=== PATIENT | female | born 1975 | race Caucasian/White ===

== ENCOUNTER → 2016-08-21 | Outpatient (CLI) | payer OTHER ==
[~2016-08-21] MED LIST: CLIN-81 PO; DOCU100T7 PO; FURO20TA4 PO; HYDR-34 PO; HYDR-757 PO; IBUP-1773 PO; Ibuprofen PO; L.AC1CAP6 PO; MULT-608 PO; NF-VYVAN20 PO; POTA10CA43 PO; PREN-37 PO; SPRN25T PO
--- NOTE | 2016-08-22 19:13 | Diagnostic Imaging Report ---
EXAMINATION: Digital mammogram bilateral screening. INDICATION: Screening. COMPARISON: This study was compared to the prior exams of 04/09/2015 and 02/09/2014. At this time, there are no current complaints. The current study was also evaluated with a Computer Aided Detection (CAD) system. FINDINGS: As noted on the prior exam, there are bilateral breast implants in place. The implants appear similar to the prior study. There is no sign of an extracapsular rupture of either implant. The fibroglandular tissue overlying the implants is heterogeneously dense. This does limit the sensitivity of this exam. When compared to the previous study, there does not appear to have been any significant change. There is no primary or secondary sign of malignancy noted. IMPRESSION: 1. There is no evidence of malignancy. 2. The implants appear stable. There is no sign of an extracapsular rupture of either implant. 3. The patient should have her annual bilateral screening mammogram on schedule in August of 2017. ACR BI-RADS Category 1: Negative. Result letter will be mailed to the patient. Note: At least 10% of breast cancer is not imaged by mammography. Dictated by: Dictated on workstation # [id number]
== END ==
LOC: RAD 15:03
PROVIDERS: ATTEND Obstetrics & Gynecology
DX: Z12.31 Encounter for screening mammogram for malignant neoplasm of breast (principal)
CPT/HCPCS: 77067

== ENCOUNTER → 2017-08-23 | Outpatient (CLI) | payer BC, OTHER ==
--- NOTE | 2017-08-24 14:21 | Diagnostic Imaging Report ---
Digital mammogram bilateral screening. This study was compared to the prior exams of 08/21/2016, 04/09/2015, and 02/09/2014. At this time, there are no current complaints. The current study was also evaluated with a Computer Aided Detection (CAD) system. FINDINGS: There are bilateral breast implants in place. The implants appear stable when compared to the prior exam. There is no sign of extracapsular rupture of either implant. The fibroglandular tissue overlying the implants is heterogeneously dense. This does limit the sensitivity of this exam. Overall, there does not appear to have been any significant change. There is no primary or secondary sign of malignancy noted. IMPRESSION: 1. There is no evidence for malignancy. 2. The implants appear stable. ACR BI-RADS Category 1: Negative. Result letter will be mailed to the patient. Note: At least 10% of breast cancer is not imaged by mammography. Dictated on workstation # [id number]
== END ==
LOC: RAD 15:34
PROVIDERS: ATTEND Obstetrics & Gynecology
DX: Z12.31 Encounter for screening mammogram for malignant neoplasm of breast (principal)
CPT/HCPCS: 77067

== ENCOUNTER → 2018-12-10 | Outpatient (CLI) | payer BC, OTHER ==
[~2018-12-10] MED LIST changes: +HYDR-4226 PO
--- NOTE | 2018-12-11 18:28 | Diagnostic Imaging Report ---
INDICATION: Screening. At this time there are no current complaints. EXAMINATION: Bilateral digital screening mammogram with CAD. 3D tomographic images were obtained and reviewed. The current study was also evaluated with a Computer Aided Detection (CAD) system. COMPARISON: This study was compared to the exams of 08/21/2016 and 04/09/2015. FINDINGS: There are bilateral breast implants in place. The implants appear similar to the prior exam. There is no evidence for an extracapsular rupture of either implant. The fibroglandular tissue overlying the implants is heterogeneously dense. This does limit the sensitivity of this exam. Overall, there does not appear to have been any significant change. There is no primary or secondary sign of malignancy noted. IMPRESSION: 1. There is no evidence for malignancy. 2. The implants appear intact. ACR BI-RADS Category 1: Negative. Result letter will be mailed to the patient. Note: At least 10% of breast cancer is not imaged by mammography. Dictated by: Dictated on workstation # [id number]
== END ==
LOC: RAD 14:17
PROVIDERS: ATTEND Obstetrics & Gynecology
DX: Z12.31 Encounter for screening mammogram for malignant neoplasm of breast (principal); Z98.82 Breast implant status
CPT/HCPCS: 77067

== ENCOUNTER 2019-04-26 21:50 | Emergency (ER) | payer BC ==
[~2019-04-26] VITALS: Ht 157.4 cm; Wt 75.0 kg
[2019-04-26] MEDS ORDERED: LACTATED RINGERS 1,000 ML IV ONE (22:05)
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
[2019-04-26 22:49] LABS: BILIRUBIN,URINE NEGATIVE (NEGATIVE); CLARITY,URINE CLEAR; COLOR,URINE YELLOW; GLUCOSE, URINE (UA) NEGATIVE (NEGATIVE); KETONES,URINE NEGATIVE (NEGATIVE); LEUKOCYTE ESTERASE ,URINE NEGATIVE (NEGATIVE); NITRITE,URINE NEGATIVE (NEGATIVE); PROTEIN,URINE NEGATIVE (NEGATIVE)
[2019-04-26 22:55] LABS: BACTERIA,URINE TRACE /HPF; RBC,URINE RARE /HPF; SQUAMOUS EPITHELIAL CELL,UR 0-2 /HPF
[2019-04-26] MEDS ORDERED: fentaNYL INJECTION 100 MCG/2 ML AMP ONE (22:55)
[2019-04-26 22:59] LABS: BASOPHILS % (AUTO) 0 % (0-10); EOSINOPHILS % (AUTO) 0 % (0-10); HEMATOCRIT 39 % (35-52); HEMOGLOBIN 13.1 G/DL (11.5-16.0); LYMPHOCYTES # (AUTO) 1.5 X 10^3 (1.0-4.0); LYMPHOCYTES % (AUTO) 10 % (12-44); MEAN CORPUSCULAR HEMOGLOBIN 32 PG (25-34); MEAN CORPUSCULAR HGB CONC 34 G/DL (32-36); MEAN CORPUSCULAR VOLUME 95 FL (80-99); MEAN PLATELET VOLUME 10.4 FL (7.4-10.4); MONOCYTES % (AUTO) 6 % (0-12); NEUTROPHILS # (AUTO) 13.5 X 10^3 (1.8-7.8); NEUTROPHILS % (AUTO) 84 % (42-75); PLATELET COUNT 297 10^3/uL (130-400); RED CELL DISTRIBUTION WIDTH 11.8 % (10.0-14.5)
[2019-04-26] MEDS ORDERED: fentaNYL INJECTION 100 MCG/2 ML AMP IVP ONE (23:00)
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
[2019-04-26 23:16] LABS: BAND NEUTROPHILS 3 %; BASOPHILS % (MANUAL) 0 %; EOSINOPHILS % (MANUAL) 0 %; LYMPHOCYTES % (MANUAL) 6 %; MONOCYTES % (MANUAL) 4 %; NEUTROPHILS % (MANUAL) 85 %; RBC MORPH NORMAL; REACTIVE LYMPHOCYTES 2 %
[2019-04-26 23:18] LABS: ALANINE AMINOTRANSFERASE 36 U/L (0-55); ALBUMIN 4.5 GM/DL (3.2-4.5); ALKALINE PHOSPHATASE 71 U/L (40-136); BILIRUBIN,TOTAL 0.2 MG/DL (0.1-1.0); BUN/CREATININE RATIO 14; CARBON DIOXIDE 21 MMOL/L (21-32); CHLORIDE 109 MMOL/L (98-107); CREATININE SERUM 0.79 MG/DL (0.60-1.30); GFR ESTIMATED > 60; GLUCOSE 102 MG/DL (70-105); POTASSIUM 3.9 MMOL/L (3.6-5.0); SODIUM 146 MMOL/L (135-145); TOTAL PROTEIN 7.3 GM/DL (6.4-8.2)
[2019-04-27] MEDS ORDERED: fentaNYL INJECTION 100 MCG/2 ML AMP IVP STA (00:44)
[2019-04-27] MEDS ORDERED: KETAMINE/NaCl 50 MG/5 ML SYRINGE (ED ONLY) IV ONE (01:15)
[2019-04-27] MEDS ORDERED: ceFAZolin INJECTION 1,000 MG in WATER (STERILE) FOR INJECTION 10 ML IV ONE (01:15)
--- NOTE | 2019-04-27 01:15 | NUR ---
CERVICAL COLLAR PLACED BY THIS RN
--- NOTE | 2019-04-27 01:21 | NUR ---
dr rodrigez in room to splint LLE
--- NOTE | 2019-04-27 01:21 | NUR ---
negative fast exam
--- NOTE | 2019-04-27 01:35 | NUR ---
splint placed on patients left lower extremity by dr rodrigez
[2019-04-27 01:56] VITALS: BP 116/57
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
--- OUTSIDE RECORDS SUMMARY | 2019-05-22 15:41 | XMS REPORT | Encounter Summary ---
Author Author [facility] Organization [facility] Address Unknown Phone Unavailable Care Team Providers Care Calcine Furnace Tender Name Role Phone Ashley Ojeda RN Unavailable Unavailable Self, Shakir ROCHA PCP Reason for Visit * Auth/Cert Referred By Contact Referred To Contact Status Reason Specialty Diagnoses / Procedures Diagnoses Closed displaced pilon fracture of right tibia with routine healing, subsequent encounter Closed displaced pilon fracture of right tibia with routine healing, subsequent encounter [S82.871D] P rocedures OR OPEN TREATMENT FRACTURE DISTAL TIBIA FIBULA OR REMOVAL EXTERNAL FIXATION SYSTEM UNDER ANES OPEN TREATMENT WEIGHT BEARING ARTICULAR SURFACE/ PORTION DISTAL TIBIA FRACTURE WITH/ WITHOUT FIBULA INTERNAL FIXATION REMOVAL EXTERNAL FIXATION SYSTEM UNDER ANESTHESIA - LOWER EXTREMITY Encounter Details Care Team Description Date Type Department Donal Ivey MD [address] [place] [address] [phone] Flower Lee MD [address] [place] [address] 05/16/2019 Anesthesia The [facility] OR [address] [address] Anesthesia Record Responsible Anesthesiologist Anesthesia Start Time Anesthesi a Stop Time Procedure Name Donal Ivey MD 05/16/19 0722 05/16/19 1448 OPEN TREATMENT WEIGHT BEARING ARTICULAR SURFACE/ PORTION DISTAL TIBIA FRACTURE WITH FIBULA INTERNAL FIXATION (Left Ankle) Date Time Event Comment [phone] AN Equip Check 0721 Out of Pre Procedure 0722 Anes Start 0723 In Room 0723 An Start Data 0728 An Induction The patient was ree valuated immediately before moderate or deep sedation use and before anesthesia induction. 0732 An Intubation 0735 Anesthesia Ready 0743 Antibiotic Given 0815 An Tourn 300mmHg Inflated 0816 Proc Start 1016 An Tourn Deflated 1440 An Extubation 1443 an stop data 1448 Handoff to RN I completed my SBAR handoff to the receiving nurse. 1448 An Stop Meds Name Total midazolam (VERSED) 1 mg/mL injection 2 mg fentaNYL PF (SUBLIMAZE) injection 200 mcg lidocaine (2%) 200 mg/10mL Injection 100 mg syringe propofol (DIPRIVAN) 200 mg/ 20 mL 200 mg injection (VIAL) rocuronium (ZEMURON) injection 100 mg ondansetron (ZOFRAN) injection 4 mg dexamethasone (DECADRON) 4 mg/mL 4 mg injection sugammadex (BRIDION) 100 mg/mL iv soln 163 mg dextran 70/hypromellose (GENTEAL TEARS; 2 drop BION TEARS) ophthalmic solution ceFAZolin (ANCEF) injection 4 g ketamine (KETALAR) 10 mg/mL injection 30 mg HYDROmorphone injection (DILAUDID) 2 2 mg mg syringe lactated ringers infusion 1,500 mL * Name O2 N2O Inspired N2O Sevoflurane Inspired Sevoflurane * No blood administrations on file. Removal Type Details Placement Wounds Anterior, Posterior; Leg; Surgical 01/06 0840 by (NOT for Incision; Left Ankle Ex-fix Pressure Injuries) Wounds 04/27/19; 0410; Left; Ankle; Avulsion 04/27/19 0410 by Bony, (NOT for MATEUSZ Tabares Pressure Injuries) Wounds 04/27/19; 0430; Right; Buttocks; 04/27 0430 by Tania, (NOT for Abrasion Earl Pressure Injuries) 05/18/19 1100 by Ana María Hill RN Peripheral 05/16/19; 0654; IV Therapy; R; Anterior ; 05/16/19 0654 by IV Forearm; 20 G; No; Ultrasound; 1; 1.25 Joy Mohr, MATEUSZ inches; 05/18/19; 1100 05/16/19 1440 by Anneliese Osuna CRNA ETT 05/16/19; 0732; Ventilated by mask (1); 05/16/19 0732 by Ronda Osuna, Video laryngoscopy; ROYS Coy Single-Lumen; 7mm; Mac; 3; Oral; 1-Full view of the glottis; 1 insertion attempt; Auscultation, ETCO2 Detector; 22 centimeters; easy intubation with glidescope blade 3; grade 1 view; easy mask ventilation; 05/16/19; 1440 documented in this encounter Social History Date Tobacco Use Types Packs/Day Years Used Former Smoker Cigarettes Smokeless Tobacco: Never Used Comments: vapes every day (multiple time s) Drinks/Week oz/Week Comments Alcohol Use 2 Cans of beer 2.0 occassionally Yes Sex Assigned at Date Recorded Not on file Industry Job Start Date Occupation Not on file Not on file Not on file Travel End Travel History Travel Start No recent travel history available. documented as of this encounter Functional Status Date of Assessment Functional Status Response 04/29/2019 Does the patient have a hearing impairment: No 04/29/2019 Does the patient have a visual impairment: No 04/29/2019 Does the patient have impaired ambulation: Yes 04/29/2019 Does the patient have an activity of daily living Ye s (ADL) impairment: 04/29/2019 Does the patient have an instrumental activity of Ye s daily living (IADL) impairment: Date of Assessment Cognitive Status Response 04/29/2019 Does the patient have a cognitive impairment: No documented as of this encounter OR Notes * Anesthesia Postprocedure Evaluation - Rylee Grajeda MD - 05/16/2019 4:28 PM DIRECTOR MANUFACTURING ENGINEERING Post-Anesthesia Evaluation Name: Lizzette Cunningham : 1975 Age: 43 y.o. Sex: f emale Procedure Date: 05/16/2019 Procedure(s) (LRB): OPEN TREATMENT WEIGHT BEARING ARTICULAR SURFACE/ PORTION DISTAL TIBIA FRACTURE W ITH FIBULA INTERNAL FIXATION (Left) REMOVAL EXTERNAL FIXATION SYSTEM UNDER ANESTHESIA - LOWER EXTREMITY (Left) Surgeon: Surgeon(s): Frank Ramos Archie A, MD Post-Anesthesia Vitals BP: 123/86 (05/16 1615) Temp: 36.7 C (98.1 F) (05/16 1615) Pulse: 98 (05/16 161) Respirations: 8 PER MINUTE (05/16 161) SpO2: 96 % (05/16 1615) SpO2 Pulse: 98 (05/16 1615) Vitals Value Taken Time BP 123/86 05/16/2019 4:15 PM Temp 36.7 C (98.1 F) 05/16/2019 4:15 PM Pulse 98 05/16/2019 4:15 PM Respirations 8 PER MINUTE 05/16/2019 4:15 PM SpO2 96 % 05/16/2019 4:15 PM Post Anesthesia Evaluation Note Evaluation location: Pre/Post Patient participation: recovered; patient participated in evaluation Level of consciousness: alert Pain score: 4 Pain management: adequate Hydration: normovolemia Temperature: 36.0C - 38.4C Airway patency: adequate Regional/Neuraxial: Neurological status: sensory deficit and motor deficit (likely 2/2 local ane sthesia injected at surgical site) Perioperative Events Post-op nausea and vomiting: no PONV Postoperative Status Cardiovascular status: hemodynamically stable Respiratory status: spontaneous ventilation Follow-up needed: none Perioperative Events Perioperative Event: No Emergency Case Activation: No CTOR MANUFACTURING ENGINEERING * Anesthesia Preprocedure Evaluation - Donal Ivey MD - 05/16/2019 6:22 AM DIRECTOR MANUFACTURING ENGINEERING Anesthesia Pre-Procedure Evaluation Name: Lizzette Cunningham : 1975 Age: 43 y.o. Sex: f emale Procedure Date: 05/16/2019 Procedure(s) (LRB): OPEN TREATMENT WEIGHT BEARING ARTICULAR SURFACE/ PORTION DISTAL TIBIA FRACTURE W ITH/ WITHOUT FIBULA INTERNAL FIXATION (Right) REMOVAL EXTERNAL FIXATION SYSTEM UNDER ANESTHESIA - LOWER EXTREMITY (Right) Physical Assessment Vital Signs (last filed in past 24 hours): BP: 116/70 (05/16 530) Temp: 36.7 C (98.1 F) (05/16 530) Pulse: 73 (05/16 530) Respirations: 12 PER MINUTE (05/16 530) SpO2: 100 % (05/16 530) Height: 160 cm (62.99") (05/16 530) Weight: 81.3 kg (179 lb 3.7 oz) (05/16 530) Patient History No Known Allergies Current Medications Medication Directions acetaminophen (TYLENOL) 325 mg tablet Take two tablets by mouth every 6 hours as needed for Pain. ALPRAZolam (XANAX) 0.5 mg tablet Take 0.5 mg by mouth at bedtime as needed for A nxiety. buPROPion SR (WELLBUTRIN-SR) 150 mg tablet Take 150 mg by mouth daily. calcium carbonate (TUMS) 500 mg (200 mg elemental calcium) chewable tablet Chew 500-1,000 mg by mouth as Needed. furosemide (LASIX) 40 mg tablet Take 40 mg by mouth daily as needed. gabapentin (NEURONTIN) 100 mg capsule Take two capsules by mouth three times carol ly. methocarbamol (ROBAXIN) 750 mg tablet Take one tablet by mouth three times daily . other medication 1 Dose. YEAST PLUS oxyCODONE (ROXICODONE) 5 mg tablet Take one tablet to two tablets by mouth every 4 hours as needed polyethylene glycol 3350 (MIRALAX) 17 g packet Take one packet by mouth daily. Review of Systems/Medical History Patient summary reviewed Pertinent labs reviewed PONV Screening: Female gender, Non-smoker and Postoperative opioids No history of anesthetic complications No family history of anesthetic complications Airway - negative Pulmonary Current smoker (Vapes regularly); patient smoked on day of surgery Cardiovascular - negative Exercise tolerance: >4 METS Beta Joshua therapy: No Beta blockers within 24 hours: n/a No hypertension, No past AK, No DVT No hyperlipidemia GI/Hepatic/Renal - negative No GERD, No hx of liver disease No renal disease No nausea No vomiting Neuro/Psych - negative No seizures No CVA Psychiatric history Depression Anxiety Musculoskeletal - negative Fractures Endocrine/Other - negative No diabetes No hypothyroidism Not ; GA:Unknown, GP:No obstetric history on file. Constitution - negative Physical Exam Airway Findings Mallampati: III Neck ROM: limited Mouth opening: limited Comments: Patient currently in c-collar Dental Findings: Negative Cardiovascular Findings: Rhythm: regular Rate: normal Pulmonary Findings: Breath sounds clear to auscultation. Abdominal Findings: Not obese Neurological Findings: Alert and oriented x 3 Constitutional findings: No acute distress Well-developed Well-nourished Diagnostic Tests Hematology: Lab Results Component Value Date HGB 12.3 04/29/2019 HCT 36.3 04/29/2019 PLTCT 276 04/29/2019 WBC 7.1 04/29/2019 NEUT 76 04/27/2019 ANC 7.90 04/27/2019 ALC 1.80 04/27/2019 MALGORZATA 7 04/27/2019 AMC 0.70 04/27/2019 EOSA 0 04/27/2019 ABC 0.00 04/27/2019 MCV 97.9 04/29/2019 MCH 33.2 04/29/2019 MCHC 33.9 04/29/2019 MPV 8.7 04/29/2019 RDW 12.4 04/29/2019 General Chemistry: Lab Results Component Value Date NA 140 04/29/2019 K 3.6 04/29/2019 CL 104 04/29/2019 CO2 26 04/29/2019 GAP 10 04/29/2019 BUN 11 04/29/2019 CR 0.73 04/29/2019 GLU 100 04/29/2019 CA 8.6 04/29/2019 LACTIC 1.0 04/27/2019 OBSCA 1.09 04/27/2019 MG 1.9 04/29/2019 PO4 3.8 04/29/2019 Coagulation: Lab Results Component Value Date PTT 29.2 04/27/2019 INR 1.0 04/27/2019 Anesthesia Plan ASA score: 2 Plan: general and regional for postoperative pain NPO status: acceptable Informed Consent Anesthetic plan and risks discussed with patient. Use of blood products discussed with patient Blood Consent: consented Plan discussed with: anesthesiologist and COAL DRIER OPERATOR. Comments: (All questions answered. Plan for General Anesthesia) CTOR MANUFACTURING ENGINEERING documented in this encounter Plan of Treatment Not on filedocumented as of this encounter Goals Goal Patient Associated Recent Progress Patient-Stat Aut hor Goal Type Problems ed? to get this taken care of so I General Yes Horacio, can get back to normal MATEUSZ Robb documented as of this encounter Visit Diagnoses Not on filedocumented in this encounter Administered Medications Action Date Dose Rate Site Medication Order MAR Action 05/16/2019 11:35 AM DIRECTOR MANUFACTURING ENGINEERING 2 g ceFAZolin (ANCEF) injection Given INTRA-PROCEDURE MED, Starting Sun05/16/19 at 0743, Until Sun05/16/19 at 1448, Anesthesia Intra-op 2 g Given 05/16/2019 7:43 AM DIRECTOR MANUFACTURING ENGINEERING 05/16/2019 7:28 AM DIRECTOR MANUFACTURING ENGINEERING 4 mg dexamethasone (DECADRON) injection Given Intravenous, INTRA-PROCEDURE MED, Starting Sun05/16/19 at 0728, Until Fr i 05/16/19 at 1448, Anesthesia Intra-op 05/16/2019 7:28 AM DIRECTOR MANUFACTURING ENGINEERING 2 drops dextran 70/hypromellose (GENTEAL TEARS) Given ophthalmic solution INTRA-PROCEDURE MED, Starting Sun05/16/19 at 0728, Until Sun05/16/19 at 1448, Anesthesia Intra-op 05/16/2019 8:30 AM DIRECTOR MANUFACTURING ENGINEERING 50 mcg fentaNYL citrate PF (SUBLIMAZE) Given injection INTRA-PROCEDURE MED, Starting Sun05/16/19 at 0728, Until Sun05/16/19 at 1448, Anesthesia Intra-op 50 mcg Given 05/16/2019 8:17 AM DIRECTOR MANUFACTURING ENGINEERING 50 mcg Given 05/16/2019 7:40 AM DIRECTOR MANUFACTURING ENGINEERING 05/16/2019 12:45 PM DIRECTOR MANUFACTURING ENGINEERING 0.5 mg HYDROmorphone injection (DILAUDID) Given INTRA-PROCEDURE MED, Starting Sun05/16/19 at 0832, Until Sun05/16/19 at 1448, Anesthesia Intra-op 0.5 mg Given 05/16/2019 10:14 AM DIRECTOR MANUFACTURING ENGINEERING 0.5 mg Given 05/16/2019 8:56 AM DIRECTOR MANUFACTURING ENGINEERING 05/16/2019 8:21 AM DIRECTOR MANUFACTURING ENGINEERING 30 mg ketamine (KETALAR) injection Given INTRA-PROCEDURE MED, Starting Sun05/16/19 at 0821, Until Sun05/16/19 at 1448, Anesthesia Intra-op 05/16/2019 11:35 AM DIRECTOR MANUFACTURING ENGINEERING lactated ringers infusion Given - New 1,000 mL, 1,000 mL, Intravenous, at 20 Bag mL/hr, CONTINUOUS, Starting Sun 9 at 0530, Until Sun05/18/19 at 0529, Pre-Op 1,000 mL 20 mL/hr Given - New Bag 05/16/2019 7:20 AM DIRECTOR MANUFACTURING ENGINEERING 05/16/2019 7:28 AM DIRECTOR MANUFACTURING ENGINEERING 100 mg lidocaine (PF) injection Given INTRA-PROCEDURE MED, Starting Sun05/16/19 at 0728, Until Sun05/16/19 at 1448, Anesthesia Intra-op 05/16/2019 7:23 AM DIRECTOR MANUFACTURING ENGINEERING 2 mg midazolam (VERSED) injection Given Intravenous, INTRA-PROCEDURE MED, Starting Sun05/16/19 at 0723, Until Fr i 05/16/19 at 1448, Anesthesia Intra-op 05/16/2019 1:20 PM DIRECTOR MANUFACTURING ENGINEERING 4 mg ondansetron (ZOFRAN) injection Given Intravenous, INTRA-PROCEDURE MED, Starting Sun05/16/19 at 1320, Until Fr i 05/16/19 at 1448, Anesthesia Intra-op 05/16/2019 1:25 PM DIRECTOR MANUFACTURING ENGINEERING 50 mg propofol (DIPRIVAN) injection Given INTRA-PROCEDURE MED, Starting Sun05/16/19 at 0728, Until Sun05/16/19 at 1448, Anesthesia Intra-op 150 mg Given 05/16/2019 7:28 AM DIRECTOR MANUFACTURING ENGINEERING 05/16/2019 12:29 PM DIRECTOR MANUFACTURING ENGINEERING 10 mg rocuronium injection Given Intravenous, INTRA-PROCEDURE MED, Starting Sun05/16/19 at 0728, Until Fr i 05/16/19 at 1448, Anesthesia Intra-op 10 mg Given 05/16/2019 11:16 AM DIRECTOR MANUFACTURING ENGINEERING 10 mg Given 05/16/2019 10:31 AM DIRECTOR MANUFACTURING ENGINEERING 05/16/2019 2:01 PM DIRECTOR MANUFACTURING ENGINEERING 163 mg sugammadex (BRIDION) injection Given Intravenous, INTRA-PROCEDURE MED, Starting Sun05/16/19 at 1401, Until Fr i 05/16/19 at 1448, Anesthesia Intra-op documented in this encounter
--- OUTSIDE RECORDS SUMMARY | 2019-05-22 15:41 | XMS REPORT | Encounter Summary ---
Author Author [facility] Organization [facility] Address Unknown Phone Unavailable Care Team Providers Care Piling Setter Name Role Phone Ashley jOeda RN Unavailable Unavailable Self, Shakir ROCHA PCP Encounter Details Care Team Description Date Type Department Mehdi Guajardo MD [address] [facility] [address] [place], [place] [id number] Closed displaced pilon fracture of right tibia with routine healing, subsequent encounter (Primary Dx) 05/06/2019 Prep for Case The [facility] [address] [place] [address] Social History Date Tobacco Use Types Packs/Day [...] impairment: No documented as of this encounter Plan of Treatment Not on filedocumented as of this encounter Goals Goal Patient Associated Recent Progress Patient-Stat Aut hor Goal Type Problems ed? to get this taken care of so I General Yes Horacio, can get back to normal MATEUSZ Robb documented as of this encounter Visit Diagnoses Diagnosis Closed displaced pilon fracture of righ t tibia with routine healing, subsequent encounter - Primary documented in this encounter
--- OUTSIDE RECORDS SUMMARY | 2019-05-22 15:41 | XMS REPORT | Encounter Summary ---
Author Author [facility] Organization [facility] Address Unknown Phone Unavailable Care Team Providers Care Drug And Alcohol Treatment Specialist Name Role Phone Ashley Ojeda RN Unavailable Unavailable Self, Shakir ROCHA PCP Reason for Visit * Reason Comments Medication Refill Encounter Details Care Team Description Date Type Department Mehdi Guajardo MD [address] [facility] [address] [place] [address] [phone] 05/09/2019 Refill [facility] [address] [place] [id number] Social History Date Tobacco Use Types Packs/Day [...]
--- OUTSIDE RECORDS SUMMARY | 2019-05-22 15:41 | XMS REPORT | Clinical Summary ---
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 Organization Address [facility] MAIN LAB [address] [place] [address] * LACTIC ACID(LACTATE) (04/27/2019 4:20 AM LAST GREASER) Lactic Acid 1.0 0.5 - 2.0 MMOL/L MAIN LAB Specimen Blood Performing Organization Address [facility] MAIN LAB [address] [place] [address] * IONIZED CALCIUM (04/27/2019 4:20 AM LAST GREASER) Ionized Calcium 1.09 1.0 - 1.3 MMOL/L MAIN LAB Specimen Blood Performing Organization Address [facility] MAIN LAB [address] [place] [address] * GENERAL RAD CHEST EXTERNAL IMAGING (04/26/2019 12:15 AM LAST GREASER) Specimen Narrative Performed At This order has been auto finalized and does not contain a result. * GENERAL RAD PELVIS EXTERNAL IMAGING (04/26/2019 12:10 AM LAST GREASER) Specimen Narrative Performed At This order has been auto finalized and does not contain a result. * GENERAL RAD LOWER EXT EXTERNAL IMAGING (04/26/2019 12:05 AM LAST GREASER) Only the most recent of 2 results within the time period is included. Specimen Narrative Performed At This order has been auto finalized and does not contain a result. 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 necessary based on Dx 04/29/2019 2:00 PM Full Code 04/27/2019 3:49 PM Provider has discussed Code Status No, discussion no t w/Patient or Family? necessary based on Dx 04/27/2019 3:48 PM Full Code 04/27/2019 4:11 AM Provider has discussed Code Status No, more discussi on w/Patient or Family? needed
--- OUTSIDE RECORDS SUMMARY | 2019-05-22 15:41 | XMS REPORT | Encounter Summary ---
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 gait with walker with pt. Performed transfer only at this time. Wheelchair Mobility Comments: pt reports indep with w/c on level surfaces, but it is unable to fit i n/out bathroom doorway, so uses commode. Activity/Exercise Sit Edge Of Bed: 5 minutes Sit Edge Of Bed Assist: Independent Education Persons Educated: Patient Patient Barriers To Learning: Pain Interventions: Demonstration Provided Teaching Methods: Verbal Instruction;Demonstration Patient Response: Verbalized Understanding;Return Demonstration Topics: Plan/Goals of PT Interventions;Use of Assistive Device/Orthosis;Mobility Progression;Safety Awareness;Equipment Recommendations;Recommend Continued Ther apy Comments: Pt receptive to education. Pt has been functioning with minimal WB marycarmen ateral LE currently. Talked with pt about WBAT with CAM boot, progressing to amb ulation/clear with MD. Assessment/Progress Impaired Mobility Due To: Pain;Weight Bearing Restrictions Assessment/Progress: Discontinue PT Comments: Pt safe with transfers and stand by assist, understands WB status, abl e to don/doff CAM boot. AM-PAC 6 Clicks Basic Mobility Inpatient Turning from your back to your side while in a flat bed without using bed rails: None Moving from lying on your back to sitting on the side of a flatbed without using bedrails : None Moving to and from a bed to a chair (including a wheelchair): A Little Standing up from a chair using your arms (e.g. wheelchair, or bedside chair): A Little To walk in hospital room: A Little Climbing 3-5 steps with a railing: A Lot Raw Score: 19 Standardized (T-scale) Score: 42.48 Basic Mobility CMS 0-100%: 36.99 CMS G Code Modifier for Basic Mobility: CJ Goals Goal Formulation: With Patient Time For Goal Achievement: 1 day Patient Will Go Supine To/From Sit: Independently, Met Patient Will Transfer Bed/Chair: w/ Stand By Assist, Met Plan Plan Frequency: No Further Treatment PT Plan for Next Visit: Progress to ambulation WBAT right with CAM boot at home. Comments: d/c today or tomorrow. PT Discharge Recommendations Recommendation: Home with intermittent supervision/assistance Patient Currently Requires Physical Assist With: In and out of house Patient Currently Requires Supervision For: Mobility Patient Currently Requires Equipment: Owns what is needed Therapist Rylee Matos, PT Date 05/17/2019 MICS AX CONSULTANT * Seema Rinaldi RT - 05/16/2019 5:30 PM DYNAMICS AX CONSULTANT RT Adult Assessment Note NAME:Lizzette Cunningham :1975 AGE: 43 y.o. ADMISSION DATE: 05/16/2019 DAYS ADMITTED: LOS: 0 days RT Treatment Plan: Protocol Plan: Procedures Oxygen/Humidity: O2 to keep SpO2 > 92% Monitoring: Pulse oximetry BID & PRN Additional Comments: Impressions of the patient: no signs of distress Intervention(s)/outcome(s): assess patient Patient education that was completed: none Recommendations to the care team: none Vital Signs: Pulse: 107 RR: 12 PER MINUTE SpO2: 100 % O2 Device: Liter FlowO2%: 21 % Breath Sounds: Clear (implies normal) Respiratory Effort: Non-Labored MICS AX CONSULTANT * Vinod Lopes RN - 05/16/2019 5:29 PM DYNAMICS AX CONSULTANT Patient arrived to room # (1345) via cart accompanied by transport. Patient tr ansferred to the bed with assistance. Bedside safety checks completed. Initial p atient assessment completed. Refer to flowsheet for details. Admission skin assessment completed with: MATEUSZ Kidd Pressure injury present on arrival?: No 1. Head/Face/Neck: No 2. Trunk/Back: No 3. Upper Extremities: No 4. Lower Extremities: No 5. Pelvic/Coccyx: No 6. Assessed for device associated injury? Yes 7. Malnutrition Screening Tool (Nursing Nutrition Assessment) Completed? Yes See Doc Flowsheet for additional wound details. INTERVENTIONS: MICS AX CONSULTANT * Milton Alex - 05/16/2019 2:56 PM DYNAMICS AX CONSULTANT ORTHOTICS/PROSTHETICS Consult Note: NAME: Lizzette Cunningham ADMISSION DATE: admitted to hospital : 1975 AGE: 43 y.o. ROOM: LOCATED WITHIN [facility] OR /LOCATED WITHIN [facility] OR DOCTOR: Date of Order: 05/16/19 Date of Service: 05/16/19 Services referred for: Orthotic Eval and Treat: Cam walker Description of condition/injury, including services:s/p tib/fib ORIF Size: Sm Max Trax Air CAM Walker Side Rt Measurements: Area/circumference/Diameter/Length None Functional Goals discussed for device use: Joint stabilization (support and alignment) Increase or decrease range of motion Decrease pain Device is to be ordered No Estimated date of delivery Today Functional goals met: CAM Walker delivered to OR for surgical team to fit. The patient states satisfaction with the fit/function of device: n/a pt sedated Additional supplies provided to the patient: None Patient Education: Written and/or verbal instruction/information to be provided to patient by surgi bright team. Information provided: device function, usage/break-in period, donning/doffing of device, care and cleaning and benefits and precautions Patient did tolerate the procedure without incident/problem. Follow-up scheduled: PRN PLAN: Order completed Milton Alex 05/16/2019 MICS AX CONSULTANT * Lupe Gupta RN - 05/07/2019 11:07 AM DYNAMICS AX CONSULTANT PAC triage call completed with patient for procedure on 05/16 w/ Dr. Cheung. P MH, allergies and medications reviewed. Pt had previous procedure on 04/27 w/ gen eral anesthesia, ASA 2. Pt denies complications or changes in health/functional status. Labs 04/29/19. No PAC appt indicated. Pt states she was instructed per Liana Good APRN to hold Lovenox on DOS only. Pt instructed to follow instr uctions for anticoagulation per Dr. Cheung' office. Pre op and med instruction s given. MICS AX CONSULTANT documented in this encounter H&P Notes * Frank Ramos - 05/16/2019 7:14 AM DYNAMICS AX CONSULTANT [facility] History & Physical Note Admission Date: 05/16/2019 Chief Complaint: bilateral ankle pain Assessment/Plan 43F L pilon fx and R medial mal ankle fracture - OR today for removal of left ex fix and ORIF pilon and R ORIF ankle fx History of Present Illness: Lizzette Cunningham is a 43 y.o. female patient presents to y for surgical fixation of above fractures. Previous external fixator placed. [employer] ACCESS MANAGEMENT ARCHITECT O. consent in chart. questions answered. History reviewed. No pertinent past medical history. Surgical History: Procedure Laterality Date APPLICATION OF SPANNING EXTERNAL FIXATOR ON LEFT LOWER EXTREMITY, IRRIGATION AND DEBRIDEMENT WITH WOUND CLOSURE LEFT LOWER EXTREMITY Left 04/27/2019 Performed by Mike Cheung MD at Main OR/Periop Social History Socioeconomic History Marital status: Spouse name: Not on file Number of children: Not on file Years of education: Not on file Highest education level: Not on file Occupational History Not on file Tobacco Use Smoking status: Former Smoker Types: Cigarettes Smokeless tobacco: Never Used Tobacco comment: vapes every day (multiple times) Substance and Sexual Activity Alcohol use: Yes Alcohol/week: 2.0 standard drinks Types: 2 Cans of beer per week Comment: occassionally Drug use: Never Sexual activity: Not on file Other Topics Concern Not on file Social History Narrative Not on file History reviewed. No pertinent family history. Allergies: No Known Allergies Outpatient Medications as of 05/16/2019 Medication Sig Dispense Refill acetaminophen (TYLENOL) 325 mg tablet Take two tablets by mouth every 6 hour s as needed for Pain. ALPRAZolam (XANAX) 0.5 mg tablet Take 0.5 mg by mouth at bedtime as needed f or Anxiety. buPROPion SR (WELLBUTRIN-SR) 150 mg tablet Take 150 mg by mouth daily. calcium carbonate (TUMS) 500 mg (200 mg elemental calcium) chewable tablet C hew 500-1,000 mg by mouth as Needed. furosemide (LASIX) 40 mg tablet Take 40 mg by mouth daily as needed. methocarbamol (ROBAXIN) 750 mg tablet Take one tablet by mouth three times d aily. 60 tablet 0 other medication 1 Dose. YEAST PLUS polyethylene glycol 3350 (MIRALAX) 17 g packet Take one packet by mouth lexx y. 12 each Review of Systems: Musculoskeletal:positive for bone pain Blood pressure 116/70, pulse 73, temperature 36.7 C (98.1 F), height 160 cm (62.99"), weight 81.3 kg (179 lb 3.7 oz), SpO2 100 %. Physical Exam: General: AAOx3, NAD Psych: Mood/Affect appropriate ENT: Oropharynx/Nasopharynx clear Respiratory: Unlabored respirations Cardio: Regular GI: soft Vascular: Skin: wrinkles bilateral Musculoskeletal: L ex fix in place, wiggles toes, SILT plantar and dorsal. R MARIA TERESA T, foot perfused +df/pf/ehl. TTP medial Neurologic: as above Lab/Radiology/Other Diagnostic Tests: Radiographs: CBC w/Diff Lab Results Component Value Date/Time WBC 7.1 04/29/2019 04:04 AM HGB 12.3 04/29/2019 04:04 AM HCT 36.3 04/29/2019 04:04 AM PLTCT 276 04/29/2019 04:04 AM Basic Metabolic Profile Lab Results Component Value Date/Time NA 140 04/29/2019 04:04 AM K 3.6 04/29/2019 04:04 AM CL 104 04/29/2019 04:04 AM CO2 26 04/29/2019 04:04 AM GAP 10 04/29/2019 04:04 AM BUN 11 04/29/2019 04:04 AM CR 0.73 04/29/2019 04:04 AM GLU 100 04/29/2019 04:04 AM Coagulation Studies Lab Results Component Value Date/Time PTT 29.2 04/27/2019 04:20 AM INR 1.0 04/27/2019 04:20 AM Frank Rachel [id number] MICS AX CONSULTANT documented in this encounter Miscellaneous Notes * Care Plan - Ana María Hill RN - 05/18/2019 10:44 AM DYNAMICS AX CONSULTANT Problem: Discharge Planning Goal: Participation in plan of care Outcome: Goal Achieved Goal: Knowledge regarding plan of care Outcome: Goal Achieved Goal: Prepared for discharge Outcome: Goal Achieved Problem: Falls, High Risk of Goal: Absence of falls-Adult Patient Outcome: Goal Achieved Goal: Absence of Falls-Pediatric patient Outcome: Goal Achieved Problem: Mobility/Activity Intolerance Goal: Maximize functional ADL's and mobility outcomes Outcome: Goal Achieved Problem: Nutrition Deficit Goal: Adequate nutritional intake Outcome: Goal Achieved Goal: Body weight within specified parameters Outcome: Goal Achieved Problem: Pain Goal: Management of pain Outcome: Goal Achieved Goal: Knowledge of pain management Outcome: Goal Achieved Goal: Progress Toward Pain Management Goals Outcome: Goal Achieved MICS AX CONSULTANT * Care Plan - Ana María Hill RN - 05/17/2019 1:12 PM DYNAMICS AX CONSULTANT Problem: Discharge Planning Goal: Participation in plan of care Outcome: Goal Ongoing Goal: Knowledge regarding plan of care Outcome: Goal Ongoing Goal: Prepared for discharge Outcome: Goal Ongoing Problem: Falls, High Risk of Goal: Absence of falls-Adult Patient Outcome: Goal Ongoing Goal: Absence of Falls-Pediatric patient Outcome: Goal Ongoing Problem: Mobility/Activity Intolerance Goal: Maximize functional ADL's and mobility outcomes Outcome: Goal Ongoing Problem: Nutrition Deficit Goal: Adequate nutritional intake Outcome: Goal Ongoing Goal: Body weight within specified parameters Outcome: Goal Ongoing Problem: Pain Goal: Management of pain Outcome: Goal Ongoing Goal: Knowledge of pain management Outcome: Goal Ongoing Goal: Progress Toward Pain Management Goals Outcome: Goal Ongoing MICS AX CONSULTANT * Anesthesia Post Op Day 1 - Pura Booth SRNA - 05/17/2019 11:04 AM DYNAMICS AX CONSULTANT Anesthesia Follow-Up Evaluation: Post-Procedure Day One Name: Lizzette Cunningham : 1975 Age: 43 y.o. Sex: fe male Procedure Date: 05/16/2019 Procedure: Procedure(s) with comments: OPEN TREATMENT WEIGHT BEARING ARTICULAR SURFACE/ PORTION DISTAL TIBIA FRACTURE W ITH FIBULA INTERNAL FIXATION - CASE LENGTH 2 HOURS REMOVAL EXTERNAL FIXATION SYSTEM UNDER ANESTHESIA - LOWER EXTREMITY Physical Assessment Height: 160 cm (62.99") Weight: 81.3 kg (179 lb 3.7 oz) Vital Signs (Last Filed in 24 hours) BP: 124/75 (05/17 1001) Temp: 37.2 C (98.9 F) (05/17 1001) Pulse: 93 (05/17 1001) Respirations: 16 PER MINUTE (05/17 1001) SpO2: 100 % (05/17 1001) SpO2 Pulse: 98 (05/16 1615) Patient History Allergies No Known Allergies Medications Scheduled Meds:buPROPion XL (WELLBUTRIN XL) tablet 150 mg, 150 mg, Oral, QDAY docusate (COLACE) capsule 100 mg, 100 mg, Oral, BID(9-17) enoxaparin (LOVENOX) syringe 40 mg, 40 mg, Subcutaneous, QDAY(21) gabapentin (NEURONTIN) capsule 200 mg, 200 mg, Oral, TID methocarbamol (ROBAXIN) tablet 750 mg, 750 mg, Oral, TID milk of magnesia (CONC) oral suspension 10 mL, 10 mL, Oral, QDAY(21) polyethylene glycol 3350 (MIRALAX) packet 17 g, 17 g, Oral, QDAY Continuous Infusions: lactated ringers infusion Stopped (05/16/19 1440) PRN and Respiratory Meds:acetaminophen Q4H PRN OR acetaminophen Q4H PRN, ALP RAZolam QHS PRN, bisacodyl QDAY PRN, calcium carbonate PRN, diphenhydrAMINE Q6H PRN OR diphenhydrAMINE Q6H PRN, fentaNYL citrate PF Q1H PRN, ondansetron (ZO KAYLA) IV Q6H PRN, oxyCODONE Q4H PRN, phenol PRN Diagnostic Tests Hematology: Lab Results Component Value Date HGB 10.5 05/17/2019 HCT 30.5 05/17/2019 PLTCT 386 05/17/2019 WBC 7.8 05/17/2019 NEUT 76 04/27/2019 ANC 7.90 04/27/2019 ALC 1.80 04/27/2019 MALGORZATA 7 04/27/2019 AMC 0.70 04/27/2019 EOSA 0 04/27/2019 ABC 0.00 04/27/2019 MCV 95.7 05/17/2019 MCH 33.0 05/17/2019 MCHC 34.5 05/17/2019 MPV 8.2 05/17/2019 RDW 12.2 05/17/2019 General Chemistry: Lab Results Component Value Date NA 140 05/17/2019 K 3.8 05/17/2019 CL 105 05/17/2019 CO2 24 05/17/2019 GAP 11 05/17/2019 BUN 9 05/17/2019 CR 0.72 05/17/2019 GLU 96 05/17/2019 CA 8.4 05/17/2019 LACTIC 1.0 04/27/2019 OBSCA 1.09 04/27/2019 MG 1.9 04/29/2019 PO4 3.8 04/29/2019 Coagulation: Lab Results Component Value Date PTT 29.2 04/27/2019 INR 1.0 04/27/2019 Follow-Up Assessment Patient location during evaluation: floor Anesthetic Complications: Anesthetic complications: The patient did not experience any anesthestic complic ations. Pain: Management:inadequate (paged pain team) Level of Consciousness: awake and alert Hydration:acceptable Airway Patency: patent Respiratory Status: acceptable and room air Cardiovascular Status:acceptable Regional/Neuroaxial: Comments: Vital signs stable. Patient's pain level not controlled at time of judd luation. Paged pain team and discussed the possibility of a PNC. Will follow up. Adequate nutrition at this time. MICS AX CONSULTANT documented in this encounter Plan of Treatment Date/Time Name Type Priority Associated Diag noses 05/16/2019 1:33 PM DYNAMICS AX CONSULTANT CULTURE-TB (AFB) Microbiology STAT Closed displa virgilio pilon fracture of right tibia with routine healing, subsequent encounter 05/16/2019 1:33 PM DYNAMICS AX CONSULTANT CULTURE-FUNGAL,OTHER Microbiology STAT Closed di splaced pilon fracture of right tibia with routine healing, subsequent encounter documented as of this encounter Goals Goal Patient Associated Recent Progress Patient-Stat Aut hor Goal Type Problems ed? to get this taken care of so I General Yes Horacio, can get back to normal MATEUSZ Robb documented as of this encounter Procedures Comments Procedure Name Priority Date/Time Associated Diag nosis HC CBC,AUTOMATED Routine 05/17/2019 4:50 AM DYNAMICS AX CONSULTANT HC BASIC METABOLIC PANEL Routine 05/17/2019 4:50 AM DYNAMICS AX CONSULTANT FLUORO MOBILE IN OR Routine 05/16/2019 2:43 PM DYNAMICS AX CONSULTANT HC GRAM STAIN STAT 05/16/2019 Cl[address] d pilon 1:33 PM DYNAMICS AX CONSULTANT fracture of right tibia with routine healing, subsequent encounter HC CULTURE-BACTERIAL STAT 05/16/2019 Closed di splaced pilon 1:33 PM DYNAMICS AX CONSULTANT fracture of right tibia with routine healing, subsequent encounter HC CULTURE-ANAEROBIC STAT 05/16/2019 Closed di splaced pilon 1:33 PM DYNAMICS AX CONSULTANT fracture of right tibia with routine healing, subsequent encounter REMOVAL EXTERNAL FIXATION 05/16/2019 Closed disp laced pilon SYSTEM UNDER ANESTHESIA - 7:23 AM DYNAMICS AX CONSULTANT fracture of right tibia LOWER EXTREMITY with routine healing, subsequent encounter OPEN TREATMENT WEIGHT 05/16/2019 Cl[address] dis[address] d pilon BEARING ARTICULAR 7:23 AM DYNAMICS AX CONSULTANT fracture of right t ibia SURFACE/ PORTION DISTAL with routine healing, TIBIA FRACTURE WITH/ subsequent encounter WITHOUT FIBULA INTERNAL FIXATION CONSULT IV THERAPY TEAM STAT 05/16/2019 6:06 AM DYNAMICS AX CONSULTANT TELEMETRY STRIPS-SCAN 05/16/2019 12:00 AM DYNAMICS AX CONSULTANT documented in this encounter Results * BASIC METABOLIC PANEL (05/17/2019 4:50 AM DYNAMICS AX CONSULTANT) Sodium 140 137 - 147 MMOL/L [facility] [...] >60 >60 mL/min [facility] Comment: [place] The eGFR is not validated f or use in drug dosing adjustments. Continue to use estimated creatinine clearance per dosing reference text. Please contact the Clinical Pharmacist for questions. eGFR >60 >60 mL/min [facility] [place] Comment: The eGFR is not validated for use in drug dosing adjustments. Continue to use estimated creatinine clearance per dosing reference text. Please contact the Clinical Pharmacist for questions. Specimen Blood Performing Organization Address [facility] Ph one Number MAIN LAB [address] [place] [address] * CBC (05/17/2019 4:50 AM DYNAMICS AX CONSULTANT) White Blood 7.8 4.5 - 11.0 K/UL [...] MAIN LAB Specimen Blood Performing Organization Address [facility] Ph [facility] Number MA[facility] LAB [address] [id number] * FLUORO MOBILE IN OR (05/16/2019 2:43 PM DYNAMICS AX CONSULTANT) Specimen Narrative Performed At This order has been auto finalized and does not conta in a result. VIKA RAD Performing Organization Address [facility] Ph one Number VKIA RAD * GRAM STAIN (05/16/2019 1:33 PM DYNAMICS AX CONSULTANT) Battery Name GRAM STAIN [facility] Specimen FLOCKED SWAB [facility] Description LEFT ANKLE EXTERNAL FIXATOR PIN SITE Special NONE [facility] Requests Gram Stain NO NEUTROPHILS SEEN [facility] MODERATE RBC'S NO ORGANISMS SEEN Report Status FINAL [facility] 05/16/2019 Specimen Tissue - Flocked Swab Performing Organization Address [facility] Ph [facility] Number MAIN LAB [address] [place] [address] * CULTURE-WOUND/TISSUE/FLUID(AEROBIC ONLY)W/SENSITIVITY (05/16/2019 1:33 PM DYNAMICS AX CONSULTANT) Battery Name ROUTINE CULTURE [facility] Specimen FLOCKED SWAB MAIN LAB Description LEFT ANKLE EXTERNAL FIXATOR PIN SITE Special NONE [facility] Requests Direct Gram NO NEUTROPHILS SEEN [facility] Stain MODERATE RBC'S NO ORGANISMS SEEN Culture NO GROWTH 5 DAYS [facility] Report Status FINAL [facility] 05/21/2019 Specimen Tissue - Flocked Swab Performing Organization Address [facility] one Number [facility] MA[facility] [address] [place] [address] * CULTURE-ANAEROBIC (05/16/2019 1:33 PM DYNAMICS AX CONSULTANT) Battery Name ANAEROBE CULTURE [facility] Specimen FLOCKED SWAB [facility] Description LEFT ANKLE EXTERNAL FIXATOR PIN SITE Special NONE [facility] Requests Culture NO ANAEROBES ISOLATED [facility] Report Status FINAL [facility] 05/21/2019 Specimen Tissue - Flocked Swab Performing Organization Address [facility] [place] Ph one Number [facility] MA[facility] [address] [place] [address] * TELEMETRY STRIPS-SCAN (05/16/2019 12:00 AM DYNAMICS AX CONSULTANT) Narrative Performed At This result has an attachment that is n ot available. Ordered by an unspecified provider. documented in this encounter Visit Diagnoses Diagnosis Closed displaced pilon fracture of left tibia, initial encounter - Primary Closed displaced pilon fracture of righ t tibia with routine healing, subsequent encounter Pilon fracture of left tibia documented in this encounter Admitting Diagnoses Diagnosis Pilon fracture of left tibia documented in this encounter Administered Medications Action Date Dose Rate Site Medication Order MAR Action acetaminophen (TYLENOL) rectal suppository 650 mg 650 mg, Rectal, EVERY 4 HOURS PRN, Starting Sun05/16/19 at 1714, Until Mcfadden n 05/18/19 at 1309, Pain non-opioid: may be used alone or in combination with opioid analgesia, Temp > 38.5 C, Acetaminophen not to exceed 4g per 24 hours from all sources., 05/16/2019 7:06 AM DYNAMICS AX CONSULTANT 1,000 mg acetaminophen (TYLENOL) tablet 1,000 mg Given 1,000 mg, Oral, ONCE, 1 dose, Sun05/16/19 at 0530, To be given pre-op with a sip of water immediately upon arrival to [facility] (>30 minutes prior to scheduled surgery time). TOTAL ACETAMINOPHEN DOSE NOT TO EXCEED 4 GM DAILY., Pre-Op 05/18/2019 2:31 AM DYNAMICS AX CONSULTANT 650 mg acetaminophen (TYLENOL) tablet 650 mg Given 650 mg, Oral, EVERY 4 HOURS PRN, Starting Sun05/16/19 at 1714, Until Mcfadden n 05/18/19 at 1309, Pain non-opioid: may be used alone or in combination with opioid analgesia, Temp > 38.5 C, Acetaminophen not to exceed 4g per 24 hours from all sources., 650 mg Given 05/17/2019 8:30 PM DYNAMICS AX CONSULTANT 650 mg Given 05/17/2019 11:38 AM DYNAMICS AX CONSULTANT 05/17/2019 9:08 PM DYNAMICS AX CONSULTANT 0.5 mg ALPRAZolam (XANAX) tablet 0.5 mg Given 0.5 mg, Oral, AT BEDTIME PRN, Starting Sun05/16/19 at 1714, Until Sun 9 at 1309, Anxiety PO 0.5 mg Given 05/16/2019 8:44 PM DYNAMICS AX CONSULTANT 05/18/2019 8:10 AM DYNAMICS AX CONSULTANT 150 mg buPROPion XL (WELLBUTRIN XL) tablet 150 Given mg 150 mg, Oral, DAILY, First dose on Sun05/16/19 at 1715, Until Discontinued 150 mg Given 05/17/2019 8:28 AM DYNAMICS AX CONSULTANT 05/17/2019 3:00 AM DYNAMICS AX CONSULTANT 2 g ceFAZolin (ANCEF) IVP 2 g Given 2 g, Intravenous, EVERY 8 HOURS, 2 doses, First dose on Sun05/16/19 at 1930, Last dose on Sun05/17/19 at 0330 , IV PUSH -- RECONSTITUTE each 1 g vial b y adding 10 mL 0.9% NACL, For patient >= 80 kg, 2 g Given 05/16/2019 8:33 PM DYNAMICS AX CONSULTANT 05/16/2019 7:06 AM DYNAMICS AX CONSULTANT 200 mg celecoxib (CELEBREX) capsule 200 mg Given 200 mg, Oral, ONCE, 1 dose, Sun 9 at 0530, To be given pre-op with a sip of water immediately upon arrival to [place] (>30 minutes prior to scheduled surgery time)., Pre-Op 05/16/2019 7:19 AM DYNAMICS AX CONSULTANT 5 mg cyclobenzaprine (FLEXERIL) tablet 5 mg Given 5 mg, Oral, ONCE, 1 dose, Sun05/16/19 at 0530, To be given pre-op with a sip of water immediately upon arrival to [facility] (>30 minutes prior to scheduled surgery time)., Pre-Op diphenhydrAMINE (BENADRYL) capsule 25 m g 25 mg, Oral, EVERY 6 HOURS PRN, Starting 05/16/19 at 1714, Until Mcfadden n 05/18/19 at 1309, Insomnia, Itching PO diphenhydrAMINE (BENADRYL) injection 25 mg 25 mg, Intravenous, EVERY 6 HOURS PRN, Starting 05/16/19 at 1714, Until Mcfadden n 05/18/19 at 1309, Insomnia, Itching Injectable 05/17/2019 8:29 PM DYNAMICS AX CONSULTANT 40 mg Abdomen: LLQ enoxaparin (LOVENOX) syringe 40 mg Given 40 mg, Subcutaneous, DAILY, First dose on Sun05/16/19 at 2100, Until Discontinued, For patients undergoing surgery: Consult physician in advance - - enoxaparin is an anticoagulant and may need to be held for 12hr prior to surgery or invasive procedures. NOTE: This is a HIGH ALERT Medication., 40 mg Abdomen:LLQ Given 05/16/2019 8:33 PM DYNAMICS AX CONSULTANT 05/17/2019 9:14 PM DYNAMICS AX CONSULTANT 50 mcg fentaNYL citrate PF (SUBLIMAZE) Given injection 25-50 mcg 25-50 mcg, Intravenous, EVERY 1 HOUR PRN, Starting Sun05/16/19 at 1714, Until 05/18/19 at 1309, Pain Injectable, Begin once PNC/HOSPITAL SUPERINTENDENT has been discontinued. , 25 mcg Given 05/17/2019 1:36 PM DYNAMICS AX CONSULTANT 50 mcg Given 05/17/2019 7:02 AM DYNAMICS AX CONSULTANT 05/16/2019 3:30 PM DYNAMICS AX CONSULTANT 50 mcg fentaNYL citrate PF (SUBLIMAZE) Given injection 50 mcg 50 mcg, Intravenous, EVERY 5 MIN PRN, Starting 05/16/19 at 1339, Until Fr i 05/16/19 at 1708, Pain Injectable, For Pain Score 4-6, For Pain Score 4-6 Maximum total dose 200 mcg Hold if RR < 10, PACU (only) 50 mcg Given 05/16/2019 3:11 PM DYNAMICS AX CONSULTANT 05/18/2019 8:10 AM DYNAMICS AX CONSULTANT 200 mg gabapentin (NEURONTIN) capsule 200 mg Given 200 mg, Oral, THREE TIMES DAILY, First dose on Sun05/16/19 at 1715, Until Discontinued 200 mg Given 05/17/2019 8:29 PM DYNAMICS AX CONSULTANT 200 mg Given 05/17/2019 3:54 PM DYNAMICS AX CONSULTANT 05/16/2019 7:19 AM DYNAMICS AX CONSULTANT 300 mg gabapentin (NEURONTIN) capsule 300 mg Given 300 mg, Oral, ONCE, 1 dose, Sun 9 at 0530, To be given pre-op with a sip of water immediately upon arrival to [facility] (>30 minutes prior to scheduled surgery time)., Pre-Op 05/16/2019 4:02 PM DYNAMICS AX CONSULTANT 1 mg HYDROmorphone injection (DILAUDID) 1 mg Given 1 mg, Intravenous, EVERY 10 MIN PRN, Starting Sun05/16/19 at 1339, Until Fr i 05/16/19 at 1708, Pain Injectable, For Pain Score 7-10, For Pain Score 7-10 Maximum total dose of 2 mg Hold for RR <10, PACU (only) 1 mg Given 05/16/2019 3:38 PM DYNAMICS AX CONSULTANT 05/16/2019 11:35 AM DYNAMICS AX CONSULTANT lactated ringers infusion Given - New 1,000 mL, 1,000 mL, Intravenous, at 20 Bag mL/hr, CONTINUOUS, Starting Sun 9 at 0530, Until 05/18/19 at 0529, Pre-Op 1,000 mL 20 mL/hr Given - New Bag 05/16/2019 7:20 AM DYNAMICS AX CONSULTANT 05/18/2019 8:10 AM DYNAMICS AX CONSULTANT 750 mg methocarbamol (ROBAXIN) tablet 750 mg Given 750 mg, Oral, THREE TIMES DAILY, First dose on Sun05/16/19 at 1715, Until Discontinued 750 mg Given 05/17/2019 8:30 PM DYNAMICS AX CONSULTANT 750 mg Given 05/17/2019 3:54 PM DYNAMICS AX CONSULTANT 05/16/2019 3:09 PM DYNAMICS AX CONSULTANT 10 mg oxyCODONE (ROXICODONE) tablet 5-10 mg Given 5-10 mg, Oral, ONCE PRN, 1 dose, Starting Sun05/16/19 at 1339, Until Fr i 05/16/19 at 1509, Pain PO, For Pain Score <4, For Pain Score <4, PACU (only ) 05/17/2019 11:38 AM DYNAMICS AX CONSULTANT 10 mg oxyCODONE (ROXICODONE) tablet 5-10 mg Given 5-10 mg, Oral, EVERY 4 HOURS PRN, Starting Sun05/16/19 at 1714, Until Sa t 05/17/19 at 1435, Pain PO 10 mg Given 05/17/2019 6:02 AM DYNAMICS AX CONSULTANT 10 mg Given 05/17/2019 2:02 AM DYNAMICS AX CONSULTANT 05/18/2019 8:10 AM DYNAMICS AX CONSULTANT 15 mg oxyCODONE (ROXICODONE) tablet 5-15 mg Given 5-15 mg, Oral, EVERY 3 HOURS PRN, Starting 05/17/19 at 1445, Until Mcfadden n 05/18/19 at 1309, Pain PO 15 mg Given 05/18/2019 5:07 AM DYNAMICS AX CONSULTANT 15 mg Given 05/18/2019 2:31 AM DYNAMICS AX CONSULTANT 05/16/2019 7:06 AM DYNAMICS AX CONSULTANT 30 mL sodium citrate/citric acid (BICITRA) Given oral solution 30 mL 30 mL, Oral, ONCE, 1 dose, Sun05/16/19 at 0530, 1mL = 1mEq of NA+, and 1mEq HCO3, Pre-Op documented in this encounter
--- OUTSIDE RECORDS SUMMARY | 2019-05-22 15:41 | XMS REPORT | Encounter Summary ---
Author Author [facility] Organization [facility] Address Unknown Phone Unavailable Care Team Providers Care Telephone Interceptor Operator Name Role Phone Ashley Ojeda RN Unavailable Unavailable Self, Shakir ROCHA PCP Reason for Visit * Reason Comments Medication Refill Encounter Details Care Team Description Date Type Department Mehdi Guajardo MD [address] [facility] [address] [place] [address] [phone] 05/22/2019 Refill [facility] [address] [place] [id number] Social History Date Tobacco Use Types Packs/Day [...]
--- OUTSIDE RECORDS SUMMARY | 2019-05-22 15:41 | XMS REPORT | Encounter Summary ---
Author Author [facility] Organization [facility] Address Unknown Phone Unavailable Care Team Providers Care Clean Out Driller Name Role Phone Ashley Ojeda RN Unavailable Unavailable Self, Shakir ROCHA PCP Reason for Visit * Auth/Cert Referred By Contact Referred To Contact Status Reason Specialty Diagnoses / Procedures Diagnoses Closed displaced pilon fracture of right tibia with routine healing, subsequent encounter Closed displaced pilon fracture of right tibia with routine healing, subsequent encounter [S82.871D] P rocedures DC OPEN TREATMENT FRACTURE DISTAL TIBIA FIBULA DC REMOVAL EXTERNAL FIXATION SYSTEM UNDER ANES OPEN TREATMENT WEIGHT BEARING ARTICULAR SURFACE/ PORTION DISTAL TIBIA FRACTURE WITH/ WITHOUT FIBULA INTERNAL FIXATION REMOVAL EXTERNAL FIXATION SYSTEM UNDER ANESTHESIA - LOWER EXTREMITY Encounter Details Care Team Description Date Type Department Mike Cheung MD 1999 [facility] [address] [place] [id number] [phone] OPEN TREATMENT WEIGHT BEARING ARTICULAR SURFACE/ PORTION DISTAL TIBIA FRACTURE WITH FIBULA INTERNAL FIXATION 05/16/2019 Surgery [facility] OR [address] [address] Social History Date Tobacco Use Types Packs/Day [...] Comments Vital Sign 117/64 05/18/2019 6:14 AM SENIOR QA AUTOMATION ENGINEER Blood Pressure 93 05/18/2019 6:14 AM SENIOR QA AUTOMATION ENGINEER Pulse 37.2 C (98.9 F) 05/18/2019 6:14 AM SENIOR QA AUTOMATION ENGINEER Temperature - - Respiratory Rate 95% 05/18/2019 6:14 AM SENIOR QA AUTOMATION ENGINEER Oxygen Saturation - - Inhaled Oxygen Concentration 81.3 kg (179 lb 3.7 oz) 05/16/2019 5:30 AM SENIOR QA AUTOMATION ENGINEER Weight 160 cm (5' 2.99") 05/16/2019 5:30 AM SENIOR QA AUTOMATION ENGINEER Height 31.76 05/16/2019 5:30 AM SENIOR QA AUTOMATION ENGINEER Body Mass Index documented in this encounter [...] Sal Mckeon MD - 05/18/2019 11:06 AM SENIOR QA AUTOMATION ENGINEER Physician Discharge Summary Name: Lizzette Cunningham Date Of : 1975 Age: 43 years Admit date: 05/16/2019 Discharge date: 05/18/2019 11:06 AM Attending Physician: Dr. Mike Cheung, * Service: Surgery-[facility] Physician Summary completed by: Sal Mckeon [...] 4:30 PM) Call the Orthopedic clinic at [phone] AFTER BUSINESS HOURS AND WEEKENDS Call [phone] and ask the tapping machine operator automatic to page the on-call Orthopedic Resident. Discharging attending physician: MIKE CHEUNG [[id number]] Regular Diet You have no dietary restriction. [...] Center 06/03/2019 9:00 AM Марина Good APRN [facility] Ortho Sports Pending items needing follow up: None Signed: Sal Mckeon MD P [phone] 05/19/2019 cc: Primary Care Physician: Shakir Savage Referring physicians: Additional provider(s): OR QA AUTOMATION ENGINEER documented in this encounter Discharge Instructions * Pre-Anesthesia Patient Instructions* Lupe Gupta RN - 05/07/2019 11:03 AM SENIOR QA AUTOMATION ENGINEER GENERAL INFORMATION Before you come to the [...] and any other valuables at home. The [facility] is not responsible for the loss or breakage of persona l items. Remove nail taiwanese, makeup and all jewelry (including piercings) before comin g to the hospital. The morning of your procedure: brush your teeth and tongue do not smoke do not shave the area where you will have surgery What to bring to the hospital ID/ Insurance Card Cytopathology Technologist card Official documents for legal guardianship Copy [...] not receive a c all, please call [phone] before 4:30pm or [phone] after 4:30pm. Notify us at [facility]: if you need to cancel your procedure if you are going to be late Arrival at the [facility] [address] in the Parking Garage, located directly across from the main entrance to the hospital. [employer] parking is available from 7 AM to 4 PM Sunday through Sunday. Enter through the ground floor main hospital entrance and check in at the Inf ormation Desk in the lobby. They will validate your parking ticket and direct you to the next location. If you are a woman between the ages of 10 and 55, and have not had a hysterec deepak, you will be asked for a urine sample prior to surgery. Please do not urin ate before arriving in the Surgery Waiting Room. Once there, check in and let t he attendant know if you need to provide a sample. OR QA AUTOMATION ENGINEER * Pre-Anesthesia Medication Instructions* Lupe Gupta RN - 05/07/2019 11:06 AM SENIOR QA AUTOMATION ENGINEER YOUR MEDICATIONS: acetaminophen (TYLENOL) 325 mg tablet [...] with any medicine updates or questions. E-mail: [email or web address] Before going home from the hospital, please ask your doctor when you should re-s tart your medicines that were stopped before surgery. OR QA AUTOMATION ENGINEER documented in this encounter Medications at Time [...] María Hill RN - 05/18/2019 11:06 AM SENIOR QA AUTOMATION ENGINEER Lizzette Cunningham discharged on 05/18/2019. . Discharge instructions reviewed with patient. Valuables returned: Personal Items / Valuables: Cell Phone, Clothing, Valuables/Belongings home with patient Assistive Devices Type: Other Where Are Valuables Stored?: with patient. Home medications: . Functional assessment at discharge complete: Yes . OR QA AUTOMATION ENGINEER * Sal Mckeon MD - 05/18/2019 7:25 AM SENIOR QA AUTOMATION ENGINEER Orthopedic Surgery Progress Note S: No acute [...] and PT clearance Sal Mckeon MD Pager #[phone] OR QA AUTOMATION ENGINEER * Angelika Rao OT - 05/17/2019 11:00 AM SENIOR QA AUTOMATION ENGINEER OCCUPATIONAL THERAPY Discharge Note Per discussion with PT, patient reports no concerns with completing activities o f daily living with no acute OT goals identified. OT will discontinue service, p lease re-consult if the patient has a decline in functional status. Angelika Rao OTR/L [id number] OR QA AUTOMATION ENGINEER * Seema Rinaldi, RT - 05/17/2019 9:36 AM SENIOR QA AUTOMATION ENGINEER RT Adult Assessment Note NAME:Lizzette Cunningham :1975 [...] Sounds: Clear (implies normal) Respiratory Effort: Non-Labored OR QA AUTOMATION ENGINEER * Sal Mckeon MD - 05/17/2019 9:20 AM SENIOR QA AUTOMATION ENGINEER Orthopedic Surgery Progress Note S: No acute [...] and pain control Sal Mckeon MD Pager #[phone] OR QA AUTOMATION ENGINEER * Rylee Matos, PT - 05/17/2019 8:35 AM SENIOR QA AUTOMATION ENGINEER PHYSICAL THERAPY ASSESSMENT Name: Lizzette Cunningham : [...] transfering to commode/recliner/toilet and tub transfer be formerly [facility] with stand by assist. of family. Ambulation [...] needed Therapist Rylee Matos, PT Date 05/17/2019 OR QA AUTOMATION ENGINEER * Seema Rinaldi RT - 05/16/2019 5:30 PM SENIOR QA AUTOMATION ENGINEER RT Adult Assessment Note NAME:Lizzette Cunningham :1975 [...] Sounds: Clear (implies normal) Respiratory Effort: Non-Labored OR QA AUTOMATION ENGINEER * Vinod Lopes RN - 05/16/2019 5:29 PM SENIOR QA AUTOMATION ENGINEER Patient arrived to room # (18322) via cart accompanied by transport. Patient tr [...] Doc Flowsheet for additional wound details. INTERVENTIONS: OR QA AUTOMATION ENGINEER * Milton Alex - 05/16/2019 2:56 PM SENIOR QA AUTOMATION ENGINEER ORTHOTICS/PROSTHETICS Consult Note: NAME: Lizzette Cunningham ADMISSION DATE: admitted to hospital : 1975 AGE: 43 y.o. ROOM: [facility] OR /[facility] OR DOCTOR: Date of Order: [...] PRN PLAN: Order completed Milton Alex 05/16/2019 OR QA AUTOMATION ENGINEER * Lupe Gupta RN - 05/07/2019 11:07 AM SENIOR QA AUTOMATION ENGINEER PAC triage call completed with patient for [...] Pre op and med instruction s given. OR QA AUTOMATION ENGINEER documented in this encounter H&P Notes * Frank Ramos - 05/16/2019 7:14 AM SENIOR QA AUTOMATION ENGINEER [facility] Orthopedic History & Physical Note Admission [...] of above fractures. Previous external fixator placed. AUTO DAMAGE ESTIMATOR O. consent in chart. questions answered. History [...] 1.0 04/27/2019 04:20 AM Frank Rachel [id number] OR QA AUTOMATION ENGINEER documented in this encounter Miscellaneous Notes * Care Plan - Ana María Hill RN - 05/18/2019 10:44 AM SENIOR QA AUTOMATION ENGINEER Problem: Discharge Planning Goal: Participation in plan [...] Toward Pain Management Goals Outcome: Goal Achieved OR QA AUTOMATION ENGINEER * Care Plan - Ana María Hill RN - 05/17/2019 1:12 PM SENIOR QA AUTOMATION ENGINEER Problem: Discharge Planning Goal: Participation in plan [...] Toward Pain Management Goals Outcome: Goal Ongoing OR QA AUTOMATION ENGINEER * Anesthesia Post Op Day 1 - Pura Booth SRNA - 05/17/2019 11:04 AM SENIOR QA AUTOMATION ENGINEER Anesthesia Follow-Up Evaluation: Post-Procedure Day One Name: [...] follow up. Adequate nutrition at this time. OR QA AUTOMATION ENGINEER documented in this encounter Plan of Treatment Date/Time Name Type Priority Associated Diag noses 05/16/2019 1:33 PM SENIOR QA AUTOMATION ENGINEER CULTURE-TB (AFB) Microbiology STAT Closed displa virgilio pilon fracture of right tibia with routine healing, subsequent encounter 05/16/2019 1:33 PM SENIOR QA AUTOMATION ENGINEER CULTURE-FUNGAL,OTHER Microbiology STAT Closed di splaced pilon [...] nosis HC CBC,AUTOMATED Routine 05/17/2019 4:50 AM SENIOR QA AUTOMATION ENGINEER HC BASIC METABOLIC PANEL Routine 05/17/2019 4:50 AM SENIOR QA AUTOMATION ENGINEER FLUORO MOBILE IN OR Routine 05/16/2019 2:43 PM SENIOR QA AUTOMATION ENGINEER HC GRAM STAIN STAT 05/16/[address] Cl[address] d pilon 1:33 PM SENIOR QA AUTOMATION ENGINEER fracture of right tibia with routine healing, subsequent encounter HC CULTURE-BACTERIAL STAT 05/16/2019 Closed di splaced pilon 1:33 PM SENIOR QA AUTOMATION ENGINEER fracture of right tibia with routine healing, subsequent encounter HC CULTURE-ANAEROBIC STAT 05/16/2019 Closed di splaced pilon 1:33 PM SENIOR QA AUTOMATION ENGINEER fracture of right tibia with routine healing, subsequent encounter REMOVAL EXTERNAL FIXATION 05/16/2019 Closed disp laced pilon SYSTEM UNDER ANESTHESIA - 7:23 AM SENIOR QA AUTOMATION ENGINEER fracture of right tibia LOWER EXTREMITY with routine healing, subsequent encounter OPEN TREATMENT WEIGHT 05/16/[address] d pilon BEARING ARTICULAR 7:23 AM SENIOR QA AUTOMATION ENGINEER fracture of right t ibia SURFACE/ PORTION DISTAL with routine healing, TIBIA FRACTURE WITH/ subsequent encounter WITHOUT FIBULA INTERNAL FIXATION CONSULT IV THERAPY TEAM STAT 05/16/2019 6:06 AM SENIOR QA AUTOMATION ENGINEER TELEMETRY STRIPS-SCAN 05/16/2019 12:00 AM SENIOR QA AUTOMATION ENGINEER documented in this encounter Results * BASIC METABOLIC PANEL (05/17/2019 4:50 AM SENIOR QA AUTOMATION ENGINEER) Sodium 140 137 - 147 MMOL/L [facility] [...] >60 >60 mL/min [facility] MAIN [facility] Comment: [place] The eGFR is not validated f or use in drug dosing adjustments. Continue to use estimated creatinine clearance per dosing reference text. Please contact the Clinical Pharmacist for questions. eGFR >60 >60 mL/min [facility] [place] Comment: The eGFR is not validated for use in drug dosing adjustments. Continue to use estimated creatinine clearance per dosing reference text. Please contact the Clinical Pharmacist for questions. Specimen Blood Performing Organization Address [facility] Ph one Number MAIN LAB [address] [place] [address] * CBC (05/17/2019 4:50 AM SENIOR QA AUTOMATION ENGINEER) White Blood 7.8 4.5 - 11.0 K/UL [...] MAIN LAB Specimen Blood Performing Organization Address [facility] one Number MAIN LAB [address] [place] [address] * FLUORO MOBILE IN OR (05/16/2019 2:43 PM SENIOR QA AUTOMATION ENGINEER) Specimen Narrative Performed At This order has been auto finalized and does not conta in a result. [facility] Performing Organization Address [facility] one Number [facility] * GRAM STAIN (05/16/2019 1:33 PM SENIOR QA AUTOMATION ENGINEER) Battery Name GRAM STAIN [facility] MAIN [facility] Specimen FLOCKED SWAB [facility] Description LEFT ANKLE EXTERNAL FIXATOR PIN SITE Special NONE [facility] Requests Gram Stain NO NEUTROPHILS SEEN [facility] MODERATE RBC'S NO ORGANISMS SEEN Report Status FINAL [facility] MAIN LAB 05/16/2019 Specimen Tissue - Flocked Swab Performing Organization Address [facility] Ph one Number MAIN LAB [address] [place] [address] * CULTURE-WOUND/TISSUE/FLUID(AEROBIC ONLY)W/SENSITIVITY (05/16/2019 1:33 PM SENIOR QA AUTOMATION ENGINEER) Battery Name ROUTINE CULTURE [facility] MA[facility] Specimen FLOCKED SWAB [facility] Description LEFT ANKLE EXTERNAL FIXATOR PIN SITE Special NONE [facility] MAIN [facility] Requests Direct Gram NO NEUTROPHILS SEEN [facility] Stain MODERATE RBC'S NO ORGANISMS SEEN Culture NO GROWTH 5 DAYS [facility] MAIN [facility] Report Status FINAL [facility]IN [facility] 05/21/2019 Specimen Tissue - Flocked Swab Performing Organization Address [facility] one Number [facility] MAIN LAB [address] [place] [address] * CULTURE-ANAEROBIC (05/16/2019 1:33 PM SENIOR QA AUTOMATION ENGINEER) Battery Name ANAEROBE CULTURE [facility] MA[facility] Specimen FLOCKED SWAB [facility] Description LEFT ANKLE EXTERNAL FIXATOR PIN SITE Special NONE MAIN LAB Requests Culture NO ANAEROBES ISOLATED MAIN LAB Report Status FINAL MAIN LAB 05/21/2019 Specimen Tissue - Flocked Swab Performing Organization Address [facility] Ph one Number MAIN LAB [address] [place] [address] * TELEMETRY STRIPS-SCAN (05/16/2019 12:00 AM SENIOR QA AUTOMATION ENGINEER) Narrative Performed At This result has an attachment that is n ot available. Ordered by an unspecified provider. documented in this encounter Visit Diagnoses Diagnosis Closed displaced pilon fracture of righ t tibia with routine healing, subsequent encounter documented in this encounter Admitting Diagnoses Diagnosis Pilon fracture of left tibia documented in this encounter Administered Medications Action Date Dose Rate Site Medication Order MAR Action acetaminophen (TYLENOL) rectal suppository 650 mg 650 mg, Rectal, EVERY 4 HOURS PRN, Starting 05/16/19 at 1714, Until Mcfadden n 05/18/19 at 1309, Pain non-opioid: may be used alone or in combination with opioid analgesia, Temp > 38.5 C, Acetaminophen not to exceed 4g per 24 hours from all sources., 05/18/2019 2:31 AM SENIOR QA AUTOMATION ENGINEER 650 mg acetaminophen (TYLENOL) tablet 650 mg Given 650 mg, Oral, EVERY 4 HOURS PRN, Starting Sun05/16/19 at 1714, Until Mcfadden n 05/18/19 at 1309, Pain non-opioid: may be used alone or in combination with opioid analgesia, Temp > 38.5 C, Acetaminophen not to exceed 4g per 24 hours from all sources., 650 mg Given 05/17/2019 8:30 PM SENIOR QA AUTOMATION ENGINEER 650 mg Given 05/17/2019 11:38 AM SENIOR QA AUTOMATION ENGINEER 05/17/2019 9:08 PM SENIOR QA AUTOMATION ENGINEER 0.5 mg ALPRAZolam (XANAX) tablet 0.5 mg Given 0.5 mg, Oral, AT BEDTIME PRN, Starting Sun05/16/19 at 1714, Until Sun 9 at 1309, Anxiety PO 0.5 mg Given 05/16/2019 8:44 PM SENIOR QA AUTOMATION ENGINEER 05/18/2019 8:10 AM SENIOR QA AUTOMATION ENGINEER 150 mg buPROPion XL (WELLBUTRIN XL) tablet 150 Given mg 150 mg, Oral, DAILY, First dose on Sun05/16/19 at 1715, Until Discontinued 150 mg Given 05/17/2019 8:28 AM SENIOR QA AUTOMATION ENGINEER diphenhydrAMINE (BENADRYL) capsule 25 m g 25 mg, Oral, EVERY 6 HOURS PRN, Starting Sun05/16/19 at 1714, Until Mcfadden n 05/18/19 at 1309, Insomnia, Itching PO diphenhydrAMINE (BENADRYL) injection 25 mg 25 mg, Intravenous, EVERY 6 HOURS PRN, Starting Sun05/16/19 at 1714, Until Mcfadden n 05/18/19 at 1309, Insomnia, Itching Injectable 05/17/2019 8:29 PM SENIOR QA AUTOMATION ENGINEER 40 mg Abdomen: LLQ enoxaparin (LOVENOX) syringe [...] 40 mg Abdomen:LLQ Given 05/16/2019 8:33 PM SENIOR QA AUTOMATION ENGINEER 05/17/2019 9:14 PM SENIOR QA AUTOMATION ENGINEER 50 mcg fentaNYL citrate PF (SUBLIMAZE) Given injection 25-50 mcg 25-50 mcg, Intravenous, EVERY 1 HOUR PRN, Starting Sun05/16/19 at 1714, Until 05/18/19 at 1309, Pain Injectable, Begin once PNC/HAUL TRUCK DRIVER has been discontinued. , 25 mcg Given 05/17/2019 1:36 PM SENIOR QA AUTOMATION ENGINEER 50 mcg Given 05/17/2019 7:02 AM SENIOR QA AUTOMATION ENGINEER 05/18/2019 8:10 AM SENIOR QA AUTOMATION ENGINEER 200 mg gabapentin (NEURONTIN) capsule 200 mg Given 200 mg, Oral, THREE TIMES DAILY, First dose on Sun05/16/19 at 1715, Until Discontinued 200 mg Given 05/17/2019 8:29 PM SENIOR QA AUTOMATION ENGINEER 200 mg Given 05/17/2019 3:54 PM SENIOR QA AUTOMATION ENGINEER 05/18/2019 8:10 AM SENIOR QA AUTOMATION ENGINEER 750 mg methocarbamol (ROBAXIN) tablet 750 mg Given 750 mg, Oral, THREE TIMES DAILY, First dose on Sun05/16/19 at 1715, Until Discontinued 750 mg Given 05/17/2019 8:30 PM SENIOR QA AUTOMATION ENGINEER 750 mg Given 05/17/2019 3:54 PM SENIOR QA AUTOMATION ENGINEER 05/18/2019 8:10 AM SENIOR QA AUTOMATION ENGINEER 15 mg oxyCODONE (ROXICODONE) tablet 5-15 mg Given 5-15 mg, Oral, EVERY 3 HOURS PRN, Starting 05/17/19 at 1445, Until Mcfadden n 05/18/19 at 1309, Pain PO 15 mg Given 05/18/2019 5:07 AM SENIOR QA AUTOMATION ENGINEER 15 mg Given 05/18/2019 2:31 AM SENIOR QA AUTOMATION ENGINEER documented in this encounter
--- OUTSIDE RECORDS SUMMARY | 2019-05-22 15:41 | XMS REPORT | Encounter Summary ---
Author Author [facility] Organization [facility] Address Unknown Phone Unavailable Care Team Providers Care Balance Engineer Name Role Phone Ashley Ojeda RN Unavailable Unavailable Self, Shakir ROCHA PCP Reason for Referral * Radiology Services (Routine) Referred By Contact Referred To Contact Status Reason Specialty Diagnoses / Procedures Марина Enciso APRN [address] [facility] [address] [place] [id number] New Request Radiology Diagnoses Other closed fracture of distal end of right tibia with routine healing, subsequent encounter P rocedures CT LOWER EXTREM WO CONT RIGHT Reason for Visit * Reason Comments Post-op LLE Ex fix * Consult, Test & Treat (Discharge Pending) Referred By Contact Referred To Contact Status Reason Specialty Diagnoses / Procedures Lisa Wells APRN-PROTOZOOLOGIST [address] [facility] [address] [facility] [address] [place] [address] New Request Orthopedic Procedures Surgery POST DISCHARGE APPOINTMENT: ORTHOPEDICS POST DISCHARGE APPOINTMENT: ORTHOPEDICS Encounter Details Care Team Description Date Type Department Марина Enciso APRN [address] [facility] [address] [place] [address] [phone] Type I or II open displaced pilon fractu re of left tibia with routine healing, subsequent encounter (Primary Dx); Other closed fracture of distal end of right tibia with routine healing, subsequent encounter 05/06/2019 Office Visit [facility] [address] [place] [address] Social History Date Tobacco Use [...] Signs Reading Time Taken Comments Vital Sign - - Blood Pressure - - Pulse - - Temperature - - Respiratory Rate - - Oxygen Saturation - - Inhaled Oxygen Concentration 84.8 kg (187 lb) 05/06/2019 1:33 PM NUCLEAR EQUIPMENT TEST ENGINEER Weight 160 cm (5' 3") 05/06/2019 1:33 PM NUCLEAR EQUIPMENT TEST ENGINEER Height 33.13 05/06/2019 1:33 PM NUCLEAR EQUIPMENT TEST ENGINEER Body Mass Index documented in this [...] impairment: No documented as of this encounter Progress Notes * Марина Enciso APRN - 05/06/2019 2:00 PM NUCLEAR EQUIPMENT TEST ENGINEER CC: Post-op visit HPI: Problem Closed Fracture of Distal End of Right Tibia Open Pilon Fracture EXFIX 04/27/19 Tolerating pain with current meds Physical Exam Height 160 cm (63"), weight 84.8 kg (187 lb). Body mass index is 33.13 kg/m. LLE: Pins CDI. 2+ dpp. +EHL. Wound is CDI RLE: +EHL, DF. 2+ dpp. Assessment & Plan: Open pilon fracture Cont pin care every 1-2 days. Elevate Call w redness or drainage NWB OR scheduled for 05/16. Preop instructions provided. Closed fracture of distal end of right tibia CAM boot NWB Remove for ankle ROM Will obtain CT scan to eval if this fracture requires operative treatment. We c an fix it at the same time as her left pilon if needed EAR EQUIPMENT TEST ENGINEER documented in this encounter Miscellaneous Notes * Addendum Note - Марина Enciso APRN - 05/06/2019 2:00 PM NUCLEAR EQUIPMENT TEST ENGINEER Addended by: МАРИНА ENCISO on: 05/06/2019 02:10 PM Modules accepted: Orders EAR EQUIPMENT TEST ENGINEER documented in this encounter Plan of Treatment Order Schedule Name Type Priority Associated Diag noses Expected: 05/06/2019, Expires: 0 CT LOWER EXTREM WO CONT Imaging Routine Other closed fracture of RIGHT distal end of right tibia with routine healing, subsequent encounter documented as of this encounter Goals Goal Patient Associated Recent Progress Patient-Stat Aut hor Goal Type Problems ed? to get this taken care of so I General Yes Leonard, can get back to normal MATEUSZ Robb documented as of this encounter Visit Diagnoses Diagnosis Type I or II open displaced pilon fract ure of left tibia with routine healing, subsequent encounter - Primary Other closed fracture of distal end of right tibia with routine healing, subsequent encounter * Assessment & Plan Note - Марина Enciso APRN - 05/06/2019 1:52 PM NUCLEAR EQUIPMENT TEST ENGINEER Associated Problem(s): Closed fracture of distal end of right tibia CAM boot NWB Remove for ankle ROM Will obtain CT scan to eval if this fracture requires operative treatment. We c an fix it at the same time as her left pilon if needed EAR EQUIPMENT TEST ENGINEER * Assessment & Plan Note - Марина Enciso APRN - 05/06/2019 1:47 PM NUCLEAR EQUIPMENT TEST ENGINEER Associated Problem(s): Open pilon fracture Cont pin care every 1-2 days. Elevate Call w redness or drainage NWB OR scheduled for 05/16. Preop instructions provided. EAR EQUIPMENT TEST ENGINEER documented in this encounter
--- OUTSIDE RECORDS SUMMARY | 2019-05-22 15:42 | XMS REPORT | Encounter Summary ---
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 the robert ne in the best position for healing. When the bone has healed enough to hold tog ether, the fixation is removed. How is external fixation placed? The surgery to place the fixation is done in the hospital. Here is an overview o f what to expect: You will be given anesthesia. This is medicine that keeps you freeof pain a nd lets you sleep through the procedure. The fractured bone ends are moved back into alignment. This is called reducti on. Small incisions are made in the skin on either side of the break. Metal pins or screws are placed into the bone on either side of the break through these inc isions. A bar (fixator) is attached to the pins on the ends that sit outside the body . You may remain in the hospital fora few days after the surgery. Before you leave the hospital, you will be shown how to care for your external fixator at [facility]. If the fractured bone is in the leg, you may be told not to put their full we ight on it. This means crutches or a walker may be used to aid walking. External fixation consists of pins in the bone and a bar that sits outside the b vanessa. It holds a fractured bone together while it heals. External fixation consists of pins in the bone and a bar that sits outside the b vanessa. It holds a fractured bone together while it heals. When is the fixation removed? Healing of the fracture generally takes a few months. When the surgeon determine s that the fracture has healed, the fixation is removed. This is often done in [facility] office. What are the risks and possible complications of external fixation? Infection where pins come through the skin (common) Failure of the bone to heal Refracture of the bone after the fixation is removed How do I care for the external fixation? Follow any instructions you are given for caring for your external hardware. Don't let anyone touch or play with the bar or pins, unless instructed how to move properly. Clean around the pins carefully. Watch for signs of infection (pain,swellin g, redness, pus or white fluid, warmth around the pins, fever, or chills). When to call the healthcare provider Call the healthcare provider or surgeon if you have any of these symptoms while the fixation is in place or after it is removed: Fever Chills Warmth, redness, swelling, or oozing of the skin around pins Increased pain Tingling or numbness or swelling of the leg Problems with the fixator After the fixation is removed, inability to put weight on the injured leg Any drainage comes through skin or out of the end of the hardware Blisters Decreased ability to move extremity past the hardware A bad odor comes from the hardware or skin incision [employer] last reviewed this educational content on 08/19/[id number] [employer], [address] [place] [address], [place] [address]. All rights res erved. This information is not intended as a substitute for professional medical care. Always follow your healthcare professional's instructions. This informati on has been modified by your health care provider with permission from the [facility]. Acetaminophen tablets or caplets Brand Names: Aceta, Actamin, Anacin Aspirin Free, Genapap, Genebs, Mapap, Pain & Fever, Pain and Fever, PAIN RELIEF, PAIN RELIEF Extra Strength, Pain Reliever, Panadol, PHARBETOL, Q-Pap, Q-Pap Extra Strength, Tylenol, Tylenol CrushableTable t, Tylenol Extra Strength, XS No Aspirin, XS Pain Reliever What is this medicine? ACETAMINOPHEN (a set a LYNDSAY ty fen) is a pain reliever. It is used to treat mild pain and fever. How should I use this medicine? Take this medicine by mouth with a glass of water. Follow the directions on the package or prescription label. Take your medicine at regular intervals. Do not t priti your medicine more often than directed. Talk to your plant attendant or assistant operator regarding the use of this medicine in children. While this drug may be prescribed for children as young as 6 years of age for selected conditions, precautions do apply. What side effects may I notice from receiving this medicine? Side effects that you should report to your doctor or health reproductive healthcare assistant a s soon as possible: allergic reactions like skin rash, itching or hives, swelling of the face, li ps, or tongue breathing problems fever or sore throat redness, blistering, peeling or loosening of the skin, including inside the m outh trouble passing urine or change in the amount of urine unusual bleeding or bruising unusually weak or tired yellowing of the eyes or skin Side effects that usually do not require medical attention (report to your docto r or health reproductive healthcare assistant if they continue or are bothersome): headache nausea, stomach upset What may interact with this medicine? alcohol imatinib isoniazid other medicines with acetaminophen What if I miss a dose? If you miss a dose, take it as soon as you can. If it is almost time for your ne xt dose, take only that dose. Do not take double or extra doses. Where should I keep my medicine? Keep out of reach of children. Store at room temperature between 20 and 25 degrees C (68 and 77 degrees F). Pro tect from moisture and heat. Throw away any unused medicine after the expiration date. What should I tell my health care provider before I take this medicine? They need to know if you have any of these conditions: if you often drink alcohol liver disease an unusual or allergic reaction to acetaminophen, other medicines, foods, dye s, or preservatives or trying to get breast-feeding What should I watch for while using this medicine? Tell your doctor or health reproductive healthcare assistant if the pain lasts more than 10 days (5 days for children), if it gets worse, or if there is a new or different kind of pain. Also, check with your doctor if a fever lasts for more than 3 days. Do not take other medicines that contain acetaminophen with this medicine. Alway s read labels carefully. If you have questions, ask your doctor or pharmacist. If you take too much acetaminophen get medical help right away. Too much acetami nophen can be very dangerous and cause liver damage. Even if you do not have sym ptoms, it is important to get help right away. NOTE:This sheet is a summary. It may not cover all possible information. If you have questions about this medicine, talk to your doctor, pharmacist, or health c are provider. Copyright 2019 [employer] Cefazolin injection Brand Names: Ancef, Kefzol What is this medicine? CEFAZOLIN (ana maría gil) is a cephalosprin antibiotic. It is used to treat or p revent certain kinds of bacterial infections. It will not work for colds, flu, o r other viral infections. How should I use this medicine? This medicine is infused into a vein. Do not use your medicine more often than d mukund. Finish the full course prescribed by your doctor or health care profsander vaughn even if you feel better. Do not stop using except on your doctor's advice. Talk to your plant attendant or assistant operator regarding the use of this medicine in children. Specia l care may be needed. This medicine had been used in children as young as 1 carey h old. What side effects may I notice from receiving this medicine? Side effects that you should report to your doctor or health reproductive healthcare assistant a s soon as possible: allergic reactions like skin rash, itching or hives, swelling of the face, li ps, or tongue breathing problems fever or chills redness, blistering, peeling or loosening of the skin, including inside the m outh seizures severe or watery diarrhea sore throat stomach pain or cramps trouble passing urine or change in the amount of urine unusual bleeding or bruising Side effects that usually do not require medical attention (report to your docto r or health reproductive healthcare assistant if they continue or are bothersome): diarrhea genital or anal irritation loss of appetite nausea, vomiting pain or redness where injected What may interact with this medicine? control pills blood thinners other antibiotics probenecid What if I miss a dose? If you miss a dose, use it as soon as you can. If it is almost time for your nex t dose, use only that dose. Do not use double or extra doses. Where should I keep my medicine? You will be instructed on how to store this medicine. Keep out of the reach of maureen bravo. What should I tell my health care provider before I take this medicine? They need to know if you have any of these conditions: bleeding problems diarrhea kidney disease liver disease stomach or intestine problems (especially colitis) an unusual or allergic reaction to cefazolin, other cephalosporin antibiotics , penicillin, penicillamine, other foods, dyes or preservatives or trying to get breast-feeding What should I watch for while using this medicine? Tell your doctor or health reproductive healthcare assistant if your symptoms do not get better in a few days. If you have diabetes you might get a false-positive result for sugar in your uri ne. Check with your doctor or health reproductive healthcare assistant before you change your di et or the dose of your diabetes medicine. NOTE:This sheet is a summary. It may not cover all possible information. If you have questions about this medicine, talk to your doctor, pharmacist, or health c are provider. Copyright 2019 [employer] Gabapentin capsules or tablets Brand Names: Active-PAC with Gabapentin, Neurontin What is this medicine? GABAPENTIN (GA ba pen tin) is used to control seizures in certain types of epile psy. It is also used to treat certain types of nerve pain. How should I use this medicine? Take this medicine by mouth with a glass of water. Follow the directions on the prescription label. You can take it with or without food. If it upsets your stom ach, take it with food. Take your medicine at regular intervals. Do not take it more often than directed. Do not stop taking except on your doctor's advice. If you are directed to break the 600 or 800 mg tablets in half as part of your d ose, the extra half tablet should be used for the next dose. If you have not use d the extra half tablet within 28 days, it should be thrown away. A special MedGuide will be given to you by the pharmacist with each prescription and refill. Be sure to read this information carefully each time. Talk to your plant attendant or assistant operator regarding the use of this medicine in children. While this drug may be prescribed for children as young as 3 years for selected condit ions, precautions do apply. What side effects may I notice from receiving this medicine? Side effects that you should report to your doctor or health reproductive healthcare assistant a s soon as possible: allergic reactions like skin rash, itching or hives, swelling of the face, li ps, or tongue worsening of mood, thoughts or actions of suicide or dying Side effects that usually do not require medical attention (report to your docto r or health reproductive healthcare assistant if they continue or are bothersome): constipation difficulty walking or controlling muscle movements dizziness nausea slurred speech tiredness tremors weight gain What may interact with this medicine? Do not take this medicine with any of the following medications: other gabapentin products This medicine may also interact with the following medications: alcohol antacids antihistamines for allergy, cough and cold certain medicines for anxiety or sleep certain medicines for depression or psychotic disturbances homatropine; hydrocodone naproxen narcotic medicines (opiates) for pain phenothiazines like chlorpromazine, mesoridazine, prochlorperazine, thioridaz ine What if I miss a dose? If you miss a dose, take it as soon as you can. If it is almost time for your ne xt dose, take only that dose. Do not take double or extra doses. Where should I keep my medicine? Keep out of reach of children. This medicine may cause accidental overdose and if it taken by other adult s, children, or pets. Mix any unused medicine with a substance like cat litter o r coffee grounds. Then throw the medicine away in a sealed container like a seal ed bag or a coffee can with a lid. Do not use the medicine after the expiration date. Store at room temperature between 15 and 30 degrees C (59 and 86 degrees F). What should I tell my health care provider before I take this medicine? They need to know if you have any of these conditions: kidney disease suicidal thoughts, plans, or attempt; a previous suicide attempt by you or a family member an unusual or allergic reaction to gabapentin, other medicines, foods, dyes, or preservatives or trying to get breast-feeding What should I watch for while using this medicine? Visit your doctor or health reproductive healthcare assistant for regular checks on your progres s. You may want to keep a record at home of how you feel your condition is respo nding to treatment. You may want to share this information with your doctor or [facility] reproductive healthcare assistant at each visit. You should contact your doctor or health reproductive healthcare assistant if your seizures get worse or if you have any new types of sei zures. Do not stop taking this medicine or any of your seizure medicines unless instructed by your doctor or health reproductive healthcare assistant. Stopping your medicine lucas ddenly can increase your seizures or their severity. Wear a medical identification bracelet or chain if you are taking this medicine for seizures, and carry a card that lists all your medications. You may get drowsy, dizzy, or have blurred vision. Do not drive, use machinery, or do anything that needs mental alertness until you know how this medicine affe cts you. To reduce dizzy or fainting spells, do not sit or stand up quickly, fadumo ecially if you are an older patient. Alcohol can increase drowsiness and dizzine ss. Avoid alcoholic drinks. Your mouth may get dry. Chewing sugarless gum or sucking hard candy, and drinkin g plenty of water will help. The use of this medicine may increase the chance of suicidal thoughts or actions . Pay special attention to how you are responding while on this medicine. Any wo rsening of mood, or thoughts of suicide or dying should be reported to your [facility] reproductive healthcare assistant right away. Women who become while using this medicine may enroll in the [facility] Antiepileptic Drug Registry by calling . This stephani try collects information about the safety of antiepileptic drug use during pregn frank. NOTE:This sheet is a summary. It may not cover all possible information. If you have questions about this medicine, talk to your doctor, pharmacist, or health c are provider. Copyright 2019 [employer] Methocarbamol tablets Brand Name: Robaxin What is this medicine? METHOCARBAMOL (meth oh JOJO ba mole) helps to relieve pain and stiffness in muscl es caused by strains, sprains, or other injury to your muscles. How should I use this medicine? Take this medicine by mouth with a full glass of water. Follow the directions on the prescription label. Take your medicine at regular intervals. Do not take yo ur medicine more often than directed. Talk to your plant attendant or assistant operator regarding the use of this medicine in children. Specia l care may be needed. What side effects may I notice from receiving this medicine? Side effects that you should report to your doctor or health reproductive healthcare assistant a s soon as possible: allergic reactions like skin rash, itching or hives, swelling of the face, li ps, or tongue breathing problems confusion seizures unusually weak or tired Side effects that usually do not require medical attention (report to your docto r or health reproductive healthcare assistant if they continue or are bothersome): dizziness headache metallic taste tiredness upset stomach What may interact with this medicine? Do not take this medication with any of the following medicines: narcotic medicines for cough This medicine may also interact with the following medications: alcohol antihistamines for allergy, cough and cold certain medicines for anxiety or sleep certain medicines for depression like amitriptyline, fluoxetine, sertraline certain medicines for seizures like phenobarbital, primidone cholinesterase inhibitors like neostigmine, ambenonium, and pyridostigmine br omide general anesthetics like halothane, isoflurane, methoxyflurane, propofol local anesthetics like lidocaine, pramoxine, tetracaine medicines that relax muscles for surgery narcotic medicines for pain phenothiazines like chlorpromazine, mesoridazine, prochlorperazine, thioridaz ine What if I miss a dose? If you miss a dose, take it as soon as you can. If it is almost time for your ne xt dose, take only the next dose. Do not take double or extra doses. Where should I keep my medicine? Keep out of the reach of children. Store at room temperature between 20 and 25 degrees C (68 and 77 degrees F). Richard p container tightly closed. Throw away any unused medicine after the expiration date. What should I tell my health care provider before I take this medicine? They need to know if you have any of these conditions: kidney disease seizures an unusual or allergic reaction to methocarbamol, other medicines, foods, dye s, or preservatives or trying to get breast-feeding What should I watch for while using this medicine? Tell your doctor or health reproductive healthcare assistant if your symptoms do not start to ge t better or if they get worse. You may get drowsy or dizzy. Do not drive, use machinery, or do anything that ne eds mental alertness until you know how this medicine affects you. Do not stand or sit up quickly, especially if you are an older patient. This reduces the risk of dizzy or fainting spells. Alcohol may interfere with the effect of this medi cine. Avoid alcoholic drinks. If you are taking another medicine that also causes drowsiness, you may have mor e side effects. Give your health care provider a list of all medicines you use. Your doctor will tell you how much medicine to take. Do not take more medicine t gonsalez directed. Call emergency for help if you have problems breathing or unusual sleepiness. NOTE:This sheet is a summary. It may not cover all possible information. If you have questions about this medicine, talk to your doctor, pharmacist, or health c are provider. Copyright 2019 [employer] Polyethylene Glycol powder Brand Names: GaviLax, GIALAX, GlycoLax, Healthylax, MiraLax, Smooth LAX, Jade He alth What is this medicine? POLYETHYLENE GLYCOL 3350 (tristan ee ETH i alondra; GLYE col) powder is a laxative used to treat constipation. It increases the amount of water in the stool. Bowel mov ements become easier and more frequent. How should I use this medicine? Take this medicine by mouth. The bottle has a measuring cap that is marked with a line. Pour the powder into the cap up to the marked line (the dose is about 1 heaping tablespoon). Add the powder in the cap to a full glass (4 to 8 ounces or 120 to 240 mL) of water, juice, soda, coffee or tea. Mix the powder well. Ensur e that the powder is fully dissolved. Do not drink if there are any clumps. Drin k the solution. Take exactly as directed. Do not take your medicine more often t gonsalez directed. Talk to your plant attendant or assistant operator regarding the use of this medicine in children. Specia l care may be needed. What side effects may I notice from receiving this medicine? Side effects that you should report to your doctor or health reproductive healthcare assistant a s soon as possible: diarrhea difficulty breathing itching of the skin, hives, or skin rash severe bloating, pain, or distension of the stomach vomiting Side effects that usually do not require medical attention (report to your docto r or health reproductive healthcare assistant if they continue or are bothersome): bloating or gas lower abdominal discomfort or cramps nausea What may interact with this medicine? Interactions are not expected. What if I miss a dose? If you miss a dose, take it as soon as you can. If it is almost time for your ne xt dose, take only that dose. Do not take double or extra doses. Where should I keep my medicine? Keep out of the reach of children. Store between 15 and 30 degrees C (59 and 86 degrees F). Throw away any unused m edicine after the expiration date. What should I tell my health care provider before I take this medicine? They need to know if you have any of these conditions: a history of blockage of the stomach or intestine current abdomen distension or pain difficulty swallowing diverticulitis, ulcerative colitis, or other chronic bowel disease phenylketonuria an unusual or allergic reaction to polyethylene glycol, other medicines, dyes , or preservatives or trying to get breast-feeding What should I watch for while using this medicine? Do not use for more than 2 weeks without advice from your doctor or health reproductive healthcare assistant. It can take 2 to 4 days to have a bowel movement and to experience improvement in constipation. See your health reproductive healthcare assistant for any changes in bowel habits, including constipation, that are severe or last longer than thr ee weeks. Always take this medicine with plenty of water. NOTE:This sheet is a summary. It may not cover all possible information. If you have questions about this medicine, talk to your doctor, pharmacist, or health c are provider. Copyright 2019 [employer] Senna tablets or capsules Brand Names: Black Draught, Ex-Lax, Milana-guille, Perdiem, Senexon, Senna, SennaGen, Senna-Lax, Senna-Tabs, Senna-Time, Sennatural, Senokot, Senokot Extra Strength, SenoSol, Uni-Cenna What is this medicine? SENNA (SEN uh) is a laxative. This medicine is used to relieve constipation. It may also be used to empty and prepare the bowel for surgery or examination. How should I use this medicine? Take this medicine by mouth with a full glass of water. Follow the directions on the product label. Take exactly as directed. Do not take your medicine more oft en than directed. Talk to your plant attendant or assistant operator regarding the use of this medicine in children. While this medicine may be prescribed for children as young as 2 years for selected co nditions, precautions do apply. What side effects may I notice from receiving this medicine? Side effects that you should report to your doctor or health reproductive healthcare assistant a s soon as possible: allergic reactions like skin rash, itching or hives, swelling of the face, li ps, or tongue bloody or black, tarry stools breathing problems muscle weakness stomach pain unusually weak or tired vomiting Side effects that usually do not require medical attention (report to your docto r or health reproductive healthcare assistant if they continue or are bothersome): discolored urine (red or orange) gas upset stomach What may interact with this medicine? Interactions are not expected. Do not use any other laxative products without ta lking to your healthcare professional. What if I miss a dose? If you miss a dose, take it as soon as you can. If it is almost time for your ne xt dose, take only that dose. Do not take double or extra doses. Where should I keep my medicine? Keep out of the reach of children. Store at room temperature between 15 and 30 degrees C (59 and 86 degrees F). Richard p container tightly closed. Throw away any unused medicine after the expiration date. What should I tell my health care provider before I take this medicine? They need to know if you have any of these conditions: blockage in your bowel inflammatory bowel disease stomach or intestine problems sudden change in bowel habits lasting more than 2 weeks vomiting an unusual or allergic reaction to senna, other medicines, foods, dyes, or pr eservatives or trying to get breast-feeding What should I watch for while using this medicine? Do not use for more than 1 week unless otherwise directed by your doctor or [facility] th reproductive healthcare assistant. Stop using this medicine and contact your doctor or health reproductive healthcare assistant if you have rectal bleeding or do not have a bowel movement after use. These could be signs of a more serious condition. NOTE:This sheet is a summary. It may not cover all possible information. If you have questions about this medicine, talk to your doctor, pharmacist, or health c are provider. Copyright 2019 [employer] Bupropion tablets (Depression/Mood Disorders) Brand Name: Wellbutrin What is this medicine? BUPROPION (byoo PROE pee on) is used to treat depression. How should I use this medicine? Take this medicine by mouth with a glass of water. Follow the directions on the prescription label. You can take it with or without food. If it upsets your stom ach, take it with food. Take your medicine at regular intervals. Do not take you r medicine more often than directed. Do not stop taking this medicine suddenly e xcept upon the advice of your doctor. Stopping this medicine too quickly may cau se serious side effects or your condition may worsen. A special MedGuide will be given to you by the pharmacist with each prescription and refill. Be sure to read this information carefully each time. Talk to your plant attendant or assistant operator regarding the use of this medicine in children. Specia l care may be needed. What side effects may I notice from receiving this medicine? Side effects that you should report to your doctor or health reproductive healthcare assistant a s soon as possible: allergic reactions like skin rash, itching or hives, swelling of the face, li ps, or tongue breathing problems changes in vision confusion elevated mood, decreased need for sleep, racing thoughts, impulsive behavior fast or irregular heartbeat hallucinations, loss of contact with reality increased blood pressure redness, blistering, peeling or loosening of the skin, including inside the m outh seizures suicidal thoughts or other mood changes unusually weak or tired vomiting Side effects that usually do not require medical attention (report to your docto r or health reproductive healthcare assistant if they continue or are bothersome): constipation headache loss of appetite nausea tremors weight loss What may interact with this medicine? Do not take this medicine with any of the following medications: linezolid MAOIs like Azilect, Carbex, Eldepryl, Marplan, Nardil, and Parnate methylene blue (injected into a vein) other medicines that contain bupropion like Zyban This medicine may also interact with the following medications: alcohol certain medicines for anxiety or sleep certain medicines for blood pressure like metoprolol, propranolol certain medicines for depression or psychotic disturbances certain medicines for HIV or AIDS like efavirenz, lopinavir, nelfinavir, abel navir certain medicines for irregular heart beat like propafenone, flecainide certain medicines for Parkinson's disease like amantadine, levodopa certain medicines for seizures like carbamazepine, phenytoin, phenobarbital cimetidine clopidogrel cyclophosphamide digoxin furazolidone isoniazid nicotine orphenadrine procarbazine steroid medicines like prednisone or cortisone stimulant medicines for attention disorders, weight loss, or to stay awake tamoxifen theophylline thiotepa ticlopidine tramadol warfarin What if I miss a dose? If you miss a dose, take it as soon as you can. If it is less than four hours to your next dose, take only that dose and skip the missed dose. Do not take doubl e or extra doses. Where should I keep my medicine? Keep out of the reach of children. Store at room temperature between 20 and 25 degrees C (68 and 77 degrees F), sophia y from direct sunlight and moisture. Keep tightly closed. Throw away any unused medicine after the expiration date. What should I tell my health care provider before I take this medicine? They need to know if you have any of these conditions: an eating disorder, such as anorexia or bulimia bipolar disorder or psychosis diabetes or high blood sugar, treated with medication glaucoma heart disease, previous heart attack, or irregular heart beat head injury or brain tumor high blood pressure kidney or liver disease seizures suicidal thoughts or a previous suicide attempt Tourette's syndrome weight loss an unusual or allergic reaction to bupropion, other medicines, foods, dyes, o r preservatives breast-feeding or trying to become What should I watch for while using this medicine? Tell your doctor if your symptoms do not get better or if they get worse. Visit your doctor or health reproductive healthcare assistant for regular checks on your progress. Bec ause it may take several weeks to see the full effects of this medicine, it is i mportant to continue your treatment as prescribed by your doctor. Patients and their families should watch out for new or worsening thoughts of lucas icide or depression. Also watch out for sudden changes in feelings such as feeli ng anxious, agitated, panicky, irritable, hostile, aggressive, impulsive, severe ly restless, overly excited and hyperactive, or not being able to sleep. If this happens, especially at the beginning of treatment or after a change in dose, ca ll your health reproductive healthcare assistant. Avoid alcoholic drinks while taking this medicine. Drinking excessive alcoholic beverages, using sleeping or anxiety medicines, or quickly stopping the use of t hese agents while taking this medicine may increase your risk for a seizure. Do not drive or use heavy machinery until you know how this medicine affects you . This medicine can impair your ability to perform these tasks. Do not take this medicine close to bedtime. It may prevent you from sleeping. Your mouth may get dry. Chewing sugarless gum or sucking hard candy, and drinkin g plenty of water may help. Contact your doctor if the problem does not go away or is severe. NOTE:This sheet is a summary. It may not cover all possible information. If you have questions about this medicine, talk to your doctor, pharmacist, or health c are provider. Copyright 2019 [employer] Enoxaparin injection Brand Name: Lovenox What is this medicine? ENOXAPARIN (ee nox a PA rin) is used after knee, hip, or abdominal surgeries to prevent blood clotting. It is also used to treat existing blood clots in the shaye gs or in the veins. How should I use this medicine? This medicine is for injection under the skin. It is usually given by a health-c are professional. You or a family member may be trained on how to give the injec tions. If you are to give yourself injections, make sure you understand how to u se the syringe, measure the dose if necessary, and give the injection. To avoid bruising, do not rub the site where this medicine has been injected. Do not take your medicine more often than directed. Do not stop taking except on the advice of your doctor or health reproductive healthcare assistant. Make sure you receive a puncture-resistant container to dispose of the needles a nd syringes once you have finished with them. Do not reuse these items. Return t he container to your doctor or health reproductive healthcare assistant for proper disposal. Talk to your plant attendant or assistant operator regarding the use of this medicine in children. Specia l care may be needed. What side effects may I notice from receiving this medicine? Side effects that you should report to your doctor or health reproductive healthcare assistant a s soon as possible: allergic reactions like skin rash, itching or hives, swelling of the face, li ps, or tongue feeling faint or lightheaded, falls signs and symptoms of bleeding such as bloody or black, tarry stools; red or dark-brown urine; spitting up blood or brown material that looks like coffee bart unds; red spots on the skin; unusual bruising or bleeding from the eye, gums, or nose Side effects that usually do not require medical attention (report to your docto r or health reproductive healthcare assistant if they continue or are bothersome): pain, redness, or irritation at site where injected What may interact with this medicine? aspirin and aspirin-like medicines certain medicines that treat or prevent blood clots dipyridamole NSAIDs, medicines for pain and inflammation, like ibuprofen or naproxen What if I miss a dose? If you miss a dose, take it as soon as you can. If it is almost time for your ne xt dose, take only that dose. Do not take double or extra doses. Where should I keep my medicine? Keep out of the reach of children. Store at room temperature between 15 and 30 degrees C (59 and 86 degrees F). Do not freeze. If your injections have been specially prepared, you may need to sto re them in the refrigerator. Ask your pharmacist. Throw away any unused medicine after the expiration date. What should I tell my health care provider before I take this medicine? They need to know if you have any of these conditions: bleeding disorders, hemorrhage, or hemophilia infection of the heart or heart valves kidney or liver disease previous stroke prosthetic heart valve recent surgery or delivery of a baby ulcer in the stomach or intestine, diverticulitis, or other bowel disease an unusual or allergic reaction to enoxaparin, heparin, pork or pork products , other medicines, foods, dyes, or preservatives or trying to get breast-feeding What should I watch for while using this medicine? Visit your doctor or health reproductive healthcare assistant for regular checks on your progres s. Your condition will be monitored carefully while you are receiving this medic ine. Notify your doctor or health reproductive healthcare assistant and seek emergency treatment if y ou develop breathing problems; changes in vision; chest pain; severe, sudden hea dache; pain, swelling, warmth in the leg; trouble speaking; sudden numbness or w eakness of the face, arm, or leg. These can be signs that your condition has got ten worse. If you are going to have surgery, tell your doctor or health reproductive healthcare assistant t hat you are taking this medicine. Do not stop taking this medicine without first talking to your doctor. Be sure t o refill your prescription before you run out of medicine. Avoid sports and activities that might cause injury while you are using this med icine. Severe falls or injuries can cause unseen bleeding. Be careful when using sharp tools or knives. Consider using an electric razor. Take special care brus cassia or flossing your teeth. Report any injuries, bruising, or red spots on the skin to your doctor or health reproductive healthcare assistant. NOTE:This sheet is a summary. It may not cover all possible information. If you have questions about this medicine, talk to your doctor, pharmacist, or health c are provider. Copyright 2019 [employer] Hydromorphone injection Brand Names: Dilaudid, Dilaudid-HP, Simplist Dilaudid What is this medicine? HYDROMORPHONE (judi droe MOR fone) is a pain reliever. It is used to treat modera te to severe pain. How should I use this medicine? This medicine is for injection into a vein, into a muscle, or under the skin. It is usually given by a health reproductive healthcare assistant in a hospital or clinic setting. In rare cases, you might get this medicine at home. You will be taught how to gi ve this medicine. Use exactly as directed. Take your medicine at regular interva ls. Do not take your medicine more often than directed. It is important that you put your used needles and syringes in a special sharps container. Do not put them in a trash can. If you do not have a sharps container , call your pharmacist or healthcare provider to get one. Talk to your plant attendant or assistant operator regarding the use of this medicine in children. Specia l care may be needed. What side effects may I notice from receiving this medicine? Side effects that you should report to your doctor or health reproductive healthcare assistant a s soon as possible: allergic reactions like skin rash, itching or hives, swelling of the face, li ps, or tongue breathing problems confusion seizures signs and symptoms of low blood pressure like dizziness; feeling faint or lig htheaded, falls; unusually weak or tired trouble passing urine or change in the amount of urine Side effects that usually do not require medical attention (report to your docto r or health reproductive healthcare assistant if they continue or are bothersome): constipation dry mouth nausea, vomiting tiredness What may interact with this medicine? This medicine may interact with the following medications: alcohol antihistamines for allergy, cough and cold certain medicines for anxiety or sleep certain medicines for depression like amitriptyline, fluoxetine, sertraline certain medicines for seizures like phenobarbital, primidone general anesthetics like halothane, isoflurane, methoxyflurane, propofol local anesthetics like lidocaine, pramoxine, tetracaine MAOIs like Carbex, Eldepryl, Marplan, Nardil, and Parnate medicines that relax muscles for surgery other narcotic medicines for pain or cough phenothiazines like chlorpromazine, mesoridazine, prochlorperazine, thioridaz ine What if I miss a dose? If you miss a dose, use it as soon as you can. If it is almost time for your nex t dose, use only that dose. Do not use double or extra doses. Where should I keep my medicine? Keep out of the reach of children. This medicine can be abused. Keep your medici ne in a safe place to protect it from theft. Do not share this medicine with any one. Selling or giving away this medicine is dangerous and against the law. If you are using this medicine at home, you will be instructed on how to store t his medicine. This medicine may cause accidental overdose and if it is taken by other ad ults, children, or pets. Flush any unused medicine down the toilet to reduce the chance of harm. Do not use the medicine after the expiration date. What should I tell my health care provider before I take this medicine? They need to know if you have any of these conditions: brain tumor drug abuse or addiction head injury heart disease if you often drink alcohol kidney disease liver disease lung or breathing disease, like asthma problems urinating seizures stomach or intestine problems an unusual or allergic reaction to hydromorphone, other medicines, foods, dye s, or preservatives or trying to get breast-feeding What should I watch for while using this medicine? Tell your doctor or health reproductive healthcare assistant if your pain does not go away, if i t gets worse, or if you have new or a different type of pain. You may develop to lerance to the medicine. Tolerance means that you will need a higher dose of the medicine for pain relief. Tolerance is normal and is expected if you take this medicine for a long time. Do not suddenly stop taking your medicine because you may develop a severe react ion. Your body becomes used to the medicine. This does NOT mean you are addicted . Addiction is a behavior related to getting and using a drug for a non-medical reason. If you have pain, you have a medical reason to take pain medicine. Your doctor will tell you how much medicine to take. If your doctor wants you to stop the medicine, the dose will be slowly lowered over time to avoid any side effec ts. There are different types of narcotic medicines (opiates). If you take more than one type at the same time or if you are taking another medicine that also cause s drowsiness, you may have more side effects. Give your health care provider a l ist of all medicines you use. Your doctor will tell you how much medicine to dario e. Do not take more medicine than directed. Call emergency for help if you have problems breathing or unusual sleepiness. You may get drowsy or dizzy. Do not drive, use machinery, or do anything that ne eds mental alertness until you know how this medicine affects you. Do not stand or sit up quickly, especially if you are an older patient. This reduces the risk of dizzy or fainting spells. Alcohol may interfere with the effect of this medi cine. Avoid alcoholic drinks. This medicine will cause constipation. Try to have a bowel movement at least jai ry 2 to 3 days. If you do not have a bowel movement for 3 days, call your doctor or health reproductive healthcare assistant. Your mouth may get dry. Chewing sugarless gum or sucking hard candy, and drinkin g plenty of water may help. Contact your doctor if the problem does not go away or is severe. NOTE:This sheet is a summary. It may not cover all possible information. If you have questions about this medicine, talk to your doctor, pharmacist, or health c are provider. Copyright 2019 [employer] Oxycodone tablets or capsules Brand Names: Dazidox, Endocodone, Oxaydo, OxyIR, Percolone, Roxicodone, Roxybond What is this medicine? OXYCODONE (ox i KOLiana done) is a pain reliever. It is used to treat moderate to se brandin pain. How should I use this medicine? Take this medicine by mouth with a glass of water. Follow the directions on the prescription label. You can take it with or without food. If it upsets your stom ach, take it with food. Take your medicine at regular intervals. Do not take it more often than directed. Do not stop taking except on your doctor's advice. Some brands of this medicine, like Oxecta, have special instructions. Ask your d octor or pharmacist if these directions are for you: Do not cut, crush or chew t his medicine. Swallow only one tablet at a time. Do not wet, soak, or lick the t ablet before you take it. A special MedGuide will be given to you by the pharmacist with each prescription and refill. Be sure to read this information carefully each time. Talk to your plant attendant or assistant operator regarding the use of this medicine in children. Specia l care may be needed. What side effects may I notice from receiving this medicine? Side effects that you should report to your doctor or health reproductive healthcare assistant a s soon as possible: allergic reactions like skin rash, itching or hives, swelling of the face, li ps, or tongue breathing problems confusion signs and symptoms of low blood pressure like dizziness; feeling faint or lig htheaded, falls; unusually weak or tired trouble passing urine or change in the amount of urine trouble swallowing Side effects that usually do not require medical attention (report to your docto r or health reproductive healthcare assistant if they continue or are bothersome): constipation dry mouth nausea, vomiting tiredness What may interact with this medicine? This medicine may interact with the following medications: alcohol antihistamines for allergy, cough and cold antiviral medicines for HIV or AIDS atropine certain antibiotics like clarithromycin, erythromycin, linezolid, rifampin certain medicines for anxiety or sleep certain medicines for bladder problems like oxybutynin, tolterodine certain medicines for depression like amitriptyline, fluoxetine, sertraline certain medicines for fungal infections like ketoconazole, itraconazole, vori conazole certain medicines for migraine headache like almotriptan, eletriptan, frovatr iptan, naratriptan, rizatriptan, sumatriptan, zolmitriptan certain medicines for nausea or vomiting like dolasetron, ondansetron, palono setron certain medicines for Parkinson's disease like benztropine, trihexyphenidyl certain medicines for seizures like phenobarbital, phenytoin, primidone certain medicines for stomach problems like dicyclomine, hyoscyamine certain medicines for travel sickness like scopolamine diuretics general anesthetics like halothane, isoflurane, methoxyflurane, propofol ipratropium local anesthetics like lidocaine, pramoxine, tetracaine MAOIs like Carbex, Eldepryl, Marplan, Nardil, and Parnate medicines that relax muscles for surgery methylene blue nilotinib other narcotic medicines for pain or cough phenothiazines like chlorpromazine, mesoridazine, prochlorperazine, thioridaz ine What if I miss a dose? If you miss a dose, take it as soon as you can. If it is almost time for your ne xt dose, take only that dose. Do not take double or extra doses. Where should I keep my medicine? Keep out of the reach of children. This medicine can be abused. Keep your medici ne in a safe place to protect it from theft. Do not share this medicine with any one. Selling or giving away this medicine is dangerous and against the law. Store at room temperature between 15 and 30 degrees C (59 and 86 degrees F). Pro tect from light. Keep container tightly closed. This medicine may cause harm and if it is taken by other adults, children, or pets. Return medicine that has not been used to an official disposal site. C ontact the [employer] at or your city/[facility] government to find a site. If you cannot return the medicine, flush it down the toilet. Do not use the medi cine after the expiration date. What should I tell my health care provider before I take this medicine? They need to know if you have any of these conditions: Winston's disease brain tumor head injury heart disease history of drug or alcohol abuse problem if you often drink alcohol kidney disease liver disease lung or breathing disease, like asthma mental illness pancreatic disease seizures thyroid disease an unusual or allergic reaction to oxycodone, codeine, hydrocodone, morphine, other medicines, foods, dyes, or preservatives or trying to get breast-feeding What should I watch for while using this medicine? Tell your doctor or health reproductive healthcare assistant if your pain does not go away, if i t gets worse, or if you have new or a different type of pain. You may develop to lerance to the medicine. Tolerance means that you will need a higher dose of the medicine for pain relief. Tolerance is normal and is expected if you take this medicine for a long time. Do not suddenly stop taking your medicine because you may develop a severe react ion. Your body becomes used to the medicine. This does NOT mean you are addicted . Addiction is a behavior related to getting and using a drug for a non-medical reason. If you have pain, you have a medical reason to take pain medicine. Your doctor will tell you how much medicine to take. If your doctor wants you to stop the medicine, the dose will be slowly lowered over time to avoid any side effec ts. There are different types of narcotic medicines (opiates). If you take more than one type at the same time or if you are taking another medicine that also cause s drowsiness, you may have more side effects. Give your health care provider a l ist of all medicines you use. Your doctor will tell you how much medicine to dario e. Do not take more medicine than directed. Call emergency for help if you have problems breathing or unusual sleepiness. You may get drowsy or dizzy. Do not drive, use machinery, or do anything that ne eds mental alertness until you know how the medicine affects you. Do not stand o r sit up quickly, especially if you are an older patient. This reduces the risk of dizzy or fainting spells. Alcohol may interfere with the effect of this medic ine. Avoid alcoholic drinks. This medicine will cause constipation. Try to have a bowel movement at least jai ry 2 to 3 days. If you do not have a bowel movement for 3 days, call your doctor or health reproductive healthcare assistant. Your mouth may get dry. Chewing sugarless gum or sucking hard candy, and drinkin g plenty of water may help. Contact your doctor if the problem does not go away or is severe. NOTE:This sheet is a summary. It may not cover all possible information. If you have questions about this medicine, talk to your doctor, pharmacist, or health c are provider. Copyright 2019 [employer] Alprazolam tablets Brand Name: Xanax What is this medicine? ALPRAZOLAM (al PRAEtta jacques quinones) is a benzodiazepine. It is used to treat anxiety an d panic attacks. How should I use this medicine? Take this medicine by mouth with a glass of water. Follow the directions on the prescription label. Take your medicine at regular intervals. Do not take it more often than directed. Do not stop taking except on your doctor's advice. A special MedGuide will be given to you by the pharmacist with each prescription and refill. Be sure to read this information carefully each time. Talk to your plant attendant or assistant operator regarding the use of this medicine in children. Specia l care may be needed. What side effects may I notice from receiving this medicine? Side effects that you should report to your doctor or health reproductive healthcare assistant a s soon as possible: allergic reactions like skin rash, itching or hives, swelling of the face, li ps, or tongue breathing problems confusion loss of balance or coordination signs and symptoms of low blood pressure like dizziness; feeling faint or lig htheaded, falls; unusually weak or tired suicidal thoughts or other mood changes Side effects that usually do not require medical attention (report to your docto r or health reproductive healthcare assistant if they continue or are bothersome): dizziness dry mouth nausea, vomiting tiredness What may interact with this medicine? Do not take this medicine with any of the following medications: certain antiviral medicines for HIV or AIDS like delavirdine, indinavir certain medicines for fungal infections like ketoconazole and itraconazole narcotic medicines for cough sodium oxybate This medicine may also interact with the following medications: alcohol antihistamines for allergy, cough and cold certain antibiotics like clarithromycin, erythromycin, isoniazid, rifampin, r ifapentine, rifabutin, and troleandomycin certain medicines for blood pressure, heart disease, irregular heart beat certain medicines for depression, like amitriptyline, fluoxetine, sertraline certain medicines for seizures like carbamazepine, oxcarbazepine, phenobarbit al, phenytoin, primidone cimetidine cyclosporine female hormones, like estrogens or progestins and control pills, patche s, rings, or injections general anesthetics like halothane, isoflurane, methoxyflurane, propofol grapefruit juice local anesthetics like lidocaine, pramoxine, tetracaine medicines that relax muscles for surgery narcotic medicines for pain other antiviral medicines for HIV or AIDS phenothiazines like chlorpromazine, mesoridazine, prochlorperazine, thioridaz ine What if I miss a dose? If you miss a dose, take it as soon as you can. If it is almost time for your ne xt dose, take only that dose. Do not take double or extra doses. Where should I keep my medicine? Keep out of the reach of children. This medicine can be abused. Keep your medici ne in a safe place to protect it from theft. Do not share this medicine with any one. Selling or giving away this medicine is dangerous and against the law. Store at room temperature between 20 and 25 degrees C (68 and 77 degrees F). Thi s medicine may cause accidental overdose and if taken by other adults, chi ldren, or pets. Mix any unused medicine with a substance like cat litter or coff ee grounds. Then throw the medicine away in a sealed container like a sealed bag or a coffee can with a lid. Do not use the medicine after the expiration date. What should I tell my health care provider before I take this medicine? They need to know if you have any of these conditions: an alcohol or drug abuse problem bipolar disorder, depression, psychosis or other mental health conditions glaucoma kidney or liver disease lung or breathing disease myasthenia gravis Parkinson's disease porphyria seizures or a history of seizures suicidal thoughts an unusual or allergic reaction to alprazolam, other benzodiazepines, foods, dyes, or preservatives or trying to get breast-feeding What should I watch for while using this medicine? Tell your doctor or health reproductive healthcare assistant if your symptoms do not start to ge t better or if they get worse. Do not stop taking except on your doctor's advice. You may develop a severe reac tion. Your doctor will tell you how much medicine to take. You may get drowsy or dizzy. Do not drive, use machinery, or do anything that ne eds mental alertness until you know how this medicine affects you. To reduce the risk of dizzy and fainting spells, do not stand or sit up quickly, especially i f you are an older patient. Alcohol may increase dizziness and drowsiness. Avoid alcoholic drinks. If you are taking another medicine that also causes drowsiness, you may have mor e side effects. Give your health care provider a list of all medicines you use. Your doctor will tell you how much medicine to take. Do not take more medicine t gonsalez directed. Call emergency for help if you have problems breathing or unusual sleepiness. NOTE:This sheet is a summary. It may not cover all possible information. If you have questions about this medicine, talk to your doctor, pharmacist, or health c are provider. Copyright 2019 [employer] TAKING A WHEELCHAIR UP STEPS Moving someone up steps in a wheelchair is difficult and requires strength. Use of a ramp, wheelchair lift or other entrance without steps is best. Two people are needed to assist someone up and down steps in a wheelchair. Do NOT attempt with only one person. A strong person should be behind the person in the wheelchair. Back the wheelchair up to the steps. Hold the wheelchair handles; be sure the cone examiner is secure and not slippery. The second person holds the wheelchair on the frame near the front wheels. DO NOT hold onto any wheelchair parts that come off, such as the footrests or ar mrests. Both helpers should bend their knees and arch their backs prior to lifting to help protect their backs from injury. Tip the wheelchair backward to find the balance point. Here the wheelchair is only on the back wheels and it is easiest to hold.The helper at the top shoul d not have both feet on the same step. Together, roll the wheelchair up and onto the next step. The helpers move to the next step and repeat. On the top step, move back while keeping the wheelchair tipped backward until it can be lowered onto the front wheels. Lower the wheelchair carefully. TAKING A WHEELCHAIR DOWN STAIRS Two people are needed to assist someone up and down steps in a wheelchair. Do NOT attempt this with only one person. Roll the wheelchair to the edge of the steps. A strong person should be behind the person in the wheelchair. The helper at the top holds thewheelchair handles. Make sure the cone examiner on th e wheelchair handles is secure and not slippery. The second miller stands in front of the wheelchair and grabs the wheelchair on the frame near the front wheels. DO NOT hold onto any wheelchair parts that come off such as the footrests or armrests. The second miller should not have both feet on the same step. It may be easier to grab the frame by standing slightly to the side of the wh eelchair. Both helpers should bend their knees and arch their backs prior to moving the wheelchair to help protect their backs from injury. Tip the wheelchair backward to find the balance point. Together, slowly roll the wheelchair down to the next step. Move to the next step and repeat. Once at the bottom, keep the wheelchair tilted until you can lower it onto th e front wheels. Lower the wheelchair carefully. TAKING A WHEELCHAIR UP A CURB Face the person in the wheelchair toward the curb. Step on the tip bar under the wheelchair to tip the front wheels up off the g round. Move the wheelchair forward until the front wheels are on top of the curb. Push the wheelchair forward and up onto the curb. The person in the wheelchair can assist by pushing the wheels. TAKING A WHEELCHAIR DOWN A CURB Turn the wheelchair so the person in the wheelchair is facing backward. Slowly lower the rear wheels down to the ground. Keep the wheelchair tilted, roll the wheelchair backward. When the front wheels have cleared the curb, lower carefully. Transferring Using a Transfer Board Transferring means moving between two surfaces (such as a bed and a wheelchair). Safe transferring is crucial to preventing falls. The type of transfer you will use depends on your overall health and strength. This sheet will describe one t ype of transfer using a transfer board. Using a transfer board A transfer board is typically a flat, rigid board made of wood or plastic. It s used to bridge two surfaces. Using a transfer board has certain benefits. For instance, it allows you to move between surfaces without using your legs. It all ows for several small movements instead of one big motion. It also needs less up per body strength than other types of transfers. At first, youll need help using a transfer board. One or two caregivers will assist you. And you may need to wear a gait belt.This is a special belt that l ets a caregiver support you more easily. Later, you may be able to use the trans carol board by yourself. Tips for a successful transfer These tips can help you perform transfers using transfer boards more safely and easily: If your healthcare provider recommends that you use a transfer board, always use it during transfers.Keep it within easy reach. Never substitute another ob ject if the transfer board is not nearby. Move slowly and carefully.Pay close attention to your movements and the loc ation of your body parts as you transfer across the board. Transfer between surfaces of similar height.Or, transfer to a slightly lowe r surface. This reduces work for you and your caregiver. Protect your skin.This means keeping your skin from getting pinched or rubb ed during the transfer. For instance, dont drag your buttocks on the board. A nd always wear clothing or use a transfer sheet. This is a fabric sheet that hel ps ease movement during transfers. Keep your body parts in correct position.Keep your feet flat on the floor t hroughout most types of transfers. As you move across the board, stop as needed and reposition your legs and feet. Do this one leg at a time, keeping each foot aligned with the knee. To avoid stress on the wrist or overstretching your hand while moving, try making your hands into fists. Support your body weight on the flat surface between the knuckles. When transferring, never put your hands or fi ngers under the board. Wear any orthopedic devices you have while transferring.And always wear otoniel rdy shoes when possible. If you have decreased strength or sensation in your upper body, work with a c aregiver to help you transfer.As you grow more comfortable using a transfer robert luke, you may learn to transfer without a caregiver. At this point, you may use s pecial transfer board equipment that can help you transfer by yourself. Moving from a bed to a wheelchair One common transfer is from a bed to a wheelchair. Follow these steps to perform this movement safely using a transfer board. You may have a caregiver or two he lping you. They will be trained in providing the amount of support you need: 1. Sit on the side of the bed. Your legs should hang over the edge with your fee t flat on the floor. 2. The wheelchair should be positioned as close to the bed as possible. It shoul d be placed at about a 30angle to the bed. 3. The wheels of the chair should be locked. Both footrests should be moved out of the way. And the armrest nearest to you should be removed. 4. You or your caregiver should slide one end of the transfer board beneath your thigh. Point it downward to keep from pinching the skin. Leaning your upper bod y in the opposite direction from the board can make placing the board easier. 5. The other end of the board should be placed flat on the wheelchair seat. The board should point toward the back seat corner farthest from the bed. Also, the front edge of the board should be forward of the wheelchairs rear wheel. 6. To move across the board, unweight your body by pushing up with your arms. Ne xt, carefully move your body toward the second surface and lower it back onto th e board. Repeat, using several short movements instead of one long movement. As you transfer, lean your head and shoulders in the opposite direction of the move . For instance, to move left, lean your head and shoulders to the right as you m ove your buttocks to the left. 7. Once you are settled fully on the second surface, the transfer board can be r emoved. Moving between other surfaces Here are tips for moving between other surfaces using a transfer board. Between a wheelchair and other household surfaces.The basic steps listed ab ove can also be used to transfer to and from other surfaces in the home. These i nclude a toilet and a couch. Froma wheelchair into a car. The basic steps listed above can also be used for getting into a car. The following tips can also help: ? You may have one or two caregivers helping you transfer into a car. ? Before beginning the transfer, the car seat should be moved as far back as pos sible. This gives you more room to move. It also makes it easier to pull the fol ded wheelchair into the car. ? If more headroom is needed, the back of the car seat can be slightly reclined. ? The window of the door youre entering should be rolled down. This provides a surface you can cone examiner while moving. ? After your buttocks are positioned on the car seat, fasten your seat belt. Thi s will give you more stability as you move your legs into the car. ? Move your legs into the car one at a time. ? Fold the wheelchair per the manufacturers instructions. If caregivers are h elping you, they may load the chair into the back seat or trunk of the car. Helping a patient transfer can be hard on your back. To reduce the risk of a abraham k injury, remember to do the following: Organize the steps in your mind before you move. Explain the steps of the move and ask the patient when he or she is ready to move. Keep your knees bent and your back straight. You may use a gait belt to provide a firm hold, rather than clasping your gonsalez ds behind the patients back. Get help when you need it. Ask to practice first with supervision from a healthcare provider. [employer] last reviewed this educational content on 05/21/201719991620-3336 [employer]. [address] [place] [address], [place] [address] 7. All rights reserved. This information is not intended as a substitute for pro fessional medical care. Always follow your healthcare professional's instruction s. SUPERVISOR * Appointments* Daniel Gallo APRN - 04/28/2019 8:49 AM MEAT SUPERVISOR PCP- Primary Care Physician Follow Up Please follow up with your PCP for post hospital care within 2 weeks of discharg e. SUPERVISOR * Additional Instructions* Jolie Leonard, MATEUSZ - 04/28/2019 8:50 AM MEAT SUPERVISOR Prescription Drug Discount Resource -GoodRx GoodRx gathers current prices and discounts to help you find the lowest cost pha rmacy for your prescriptions. GoodRx is 100% free. No personal information requi red. https://www.[employer].InSequent or go to Qype from any mobile phone. -[facility] As a resident of [place], you and your family have access to a statewide Prescrip tion Assistance Program (PAP) Https://www.Iquad.InSequent/ -[facility] Residents The Outwe0Rdjty Rx Card is a free prescription discount card provided by [facility] governments and by local [employer] organizations. http://www.F[employer].InSequent/ DME- Durable Medical Equipment You have been provided wheelchair with elevating leg rest & removable armrest, drop arm bedside commode for use/safety at home after discharge. [facility] will deliver your equipment to your hospital room Therapy also recommends the use of a roller walker- you can borrow or purchase t his item (average cost $40) Slide board has been ordered to be delivered to your hospital room Dressing Supplies You have been provided a starter pack of dressing supplies. You will need to pur teodoro additional supplies at any retail store or pharmacy. Supplies: kerlex, xeroform, froilan wrap, iodine swabs Home Health Services You have been set up with home health services- nursing, PT, OT [facility] will notify you of appointment start date/gabriela es SUPERVISOR documented in this encounter Medications at Time of Discharge Start Date End Date Medication Sig Dispensed Refills 04/28/2019 acetaminophen (TYLENOL) Take two 0 325 mg tablet tablets by mouth every 6 hours as needed for Pain. ALPRAZolam (XANAX) 0.5 mg Take 0.5 mg 0 tablet by mouth at bedtime as needed for Anxiety. buPROPion SR Take 150 mg 0 (WELLBUTRIN-SR) 150 mg by mouth tablet daily. calcium carbonate (TUMS) Chew 0 500 mg (200 mg elemental 500-1,000 mg calcium) chewable tablet by mouth as Needed. furosemide (LASIX) 40 mg Take 40 mg by 0 tablet mouth daily as needed. 04/29/2019 polyethylene glycol 3350 Take one 12 each 0 (MIRALAX) 17 g packet packet by mouth daily. 04/28/2019 05/06/2019 enoxaparin (LOVENOX) 40 Inject 0.4 mL 5.6 mL 0 mg injection syringe under the skin daily for 14 days. 04/28/2019 05/09/2019 gabapentin (NEURONTIN) Take two 60 capsule 0 100 mg capsule capsules by mouth three times daily. 04/28/2019 05/22/2019 methocarbamol (ROBAXIN) Take one 60 tablet 0 750 mg tablet tablet by mouth three times daily. 04/28/2019 05/06/2019 oxyCODONE (ROXICODONE) 5 Take one 50 tablet 0 mg tablet tablet to two tablets by mouth every 4 hours as needed documented as of this encounter Progress Notes * Irene Escalera RN - 04/29/2019 12:00 PM MEAT SUPERVISOR Roselyn Cunningham discharged on 04/29/2019. . Discharge instructions reviewed with patient. Valuables returned: Personal Items / Valuables: Cell Phone, Clothing. Home medications: . Functional assessment at discharge complete: Yes . SUPERVISOR * Sanket Romero, OT - 04/29/2019 9:19 AM MEAT SUPERVISOR OCCUPATIONAL THERAPY DISCHARGE NOTE Name: Roselyn Cunningham : 1975 A ge: 43 y.o. Admission Date: 04/27/2019 LOS: 2 days Subjective Pertinent Dx per Physician: 43 y.o. female L daphne, kevin hole open posteriorly s/p I&D, exfix placement 04/27 R LE Precautions: RLE Non-Weight Bearing;R Cam Boot L LE Precautions: LLE Non-Weight Bearing(ex-fix) Comments: Patient just completed therapy with PT to work on additional transfers with new NWB status to RLE. Patient declined need to practice commode transfer s stating she has done multiple of those since receiving the news yesterday afte cal and does not feel it will be a problem at home. Objective Persons Present: Spouse Home Living Type of Home: House Home Layout: One Level;Stairs to Enter w/o Rails Bathroom Toilet: Standard Comment: Spouse unsure if wheelchair will fit into bathroom at this time - will have to measure doorways when they get home. 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 Spouse concerned about pin site care for ex-fix - RN reported plans to tea care with discharge paperwork Activity Tolerance Endurance: 3/5 Tolerates 25-30 Minutes Exercise w/Multiple Rests Sitting Balance: 4+/5 Moves/Returns Trunkal Midpoint 1-2 Inches in Multiple Plan es Cognition Overall Cognitive Status: WFL to Adequately Complete Self Care Tasks Safely UE Strength / Tone Overall Strength / Tone: WFL Able to Perform ADL Tasks Assessment Prognosis: Good AM-PAC 6 Clicks Daily Activity Inpatient Putting on and taking off regular lower body clothes?: A Little Bathing (Including washing, rinsing, drying): A Little Toileting, which includes using toilet, bedpan, or urinal: A Little Putting on and taking off regular upper body clothing: None Taking care of personal grooming such as brushing teeth: None Eating meals?: None Daily Activity Raw Score: 21 Standardized (t-scale) score: 44.27 CMS 0-100% Score: 32.79 CMS G Code Modifier: CJ Plan OT Frequency: No Further Treatment OT Plan for Next Visit: Anticipate discharge home this date with assistance from spouse and daughter pending delivery of DME to hospital (drop-arm commode and w heelchair). ADL Goals Patient Will Perform All ADL's: w/ Stand By Assist;Partly Met(will need some ass istance over ex-fix) Functional Transfer Goals Pt Will Perform All Functional Transfers: w/ Stand By Assist, Met(for wheelchair and bedside commode) OT Discharge Recommendations Recommendation: Home with intermittent supervision/assistance Patient Currently Requires Physical Assist With: Transfers Patient Currently Requires Supervision For: ADLs, Mobility Patient Currently Requires Equipment: Commode: drop arm, Wheelchair: elevating l eg rest(slide board) Comments: With appropriate DME, anticipate patient will be safe for d/c home wit h intermittent family assist. Therapist: Sanket Romero OTR/L Date: 04/29/2019 SUPERVISOR * Alexey Jackson, PT - 04/29/2019 8:42 AM MEAT SUPERVISOR PHYSICAL THERAPY PROGRESS NOTE & DISCHARGE Name: Roselyn Cunningham : 1975 A ge: 43 y.o. Admission Date: 04/27/2019 LOS: 2 days Mobility Patient Turned: Self Progressive Mobility Level: Walk in hallway Distance Walked (feet): 60 ft Level of Assistance: Stand by assistance Assistive Device: Wheelchair Time Tolerated: 11-30 minutes Subjective Significant hospital events: L open pilon fx s/p ex fix placement 04/27. R dista l tibial fracture found on x-ray 04/28. Mental / Cognitive Status: Alert;Oriented;Cooperative Persons Present: Spouse Pain: Patient complains of pain;Patient does not rate pain Pain Location: Left;Leg Pain Interventions: Patient agrees to participate in therapy;Treatment altered t o patient's pain tolerance;Elevation of extremity R LE Precautions: RLE Non-Weight Bearing;R Cam Boot L LE Precautions: LLE Non-Weight Bearing(ex-fix) Ambulation Assist: Independent Mobility in Community without Device Patient Owned Equipment: None(reports may be able to borrow RW) Home Situation: Lives with Family Type of Home: House Entry Stairs: 1-2 Stairs(may be deep enough to place walker) In-Home Stairs: Able to Live on One Level Bed Mobility/Transfer Bed Mobility: Supine to Sit: Independent Bed Mobility: Sit to Supine: Independent Transfer Type: Horizontal Transfer: Assistance Level: Bed;To/From;Wheelchair;Standby Assist Transfers: Type Of Assistance: Verbal Cues;For Wheelchair Parts Management(King posadas cue for maintaining RLE NWB. ) End Of Activity Status: In Bed;Instructed Patient to Use Call Light;Instructed P atient to Request Assist with Mobility Comments: LLE elevated on pillows Balance Sitting Balance: Static Sitting Balance;Dynamic Sitting Balance;1 UE Support;Ind ependent Wheelchair Mobility Wheelchair: Distance: 60 feet Wheelchair: Assistance Level: Standby Assist;Level Surfaces Wheelchair: Method: Propels Manual Wheelchair with;Bilateral;UE Comments: Family training for wheelchair parts management and tilting wheelchair on back wheels into "wheelie" position for platform steps Education Persons Educated: Patient/Family Patient Barriers To Learning: None Noted Interventions: Repetition of Instructions;Demonstration Provided;Written Instruc tions Provided Teaching Methods: Verbal Instruction;Demonstration;Printed Instructions Patient Response: Verbalized Understanding;Return Demonstration Topics: Plan/Goals of PT Interventions;Use of Assistive Device/Orthosis;Precauti ons;Equipment Recommendations Assessment/Progress Impaired Mobility Due To: Pain;Weight Bearing Restrictions Assessment/Progress: Improving as Expected AM-PAC 6 Clicks Basic Mobility Inpatient Turning from your back to your side while in a flat bed without using bed rails: None Moving from lying on your back to sitting on the side of a flatbed without using bedrails : None Moving to and from a bed to a chair (including a wheelchair): None Standing up from a chair using your arms (e.g. wheelchair, or bedside chair): To koby To walk in hospital room: Total Climbing 3-5 steps with a railing: Total Raw Score: 15 Standardized (T-scale) Score: 36.97 Basic Mobility CMS 0-100%: 50.4 CMS G Code Modifier for Basic Mobility: CK Goals Goal Formulation: With Patient Time For Goal Achievement: 2 days Patient Will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 suite. Perioperative antibiotics were given according to anai castillo. She was prescrubbed and prepped and draped in sterile fashion. We didi walters prescrubbed the open fracture site, which was a posterior leg wound at ab out the musculotendinous junction on the gastrocnemius. Once we had debrided an d irrigated this, we then placed two 3.5 mm yard pilot holes in the shaft of the tibi a and through these yard pilot holes we placed two 5 mm Schanz pins. We then placed a calcaneus pin through the calcaneal tuberosity through an incision along the l ateral aspect of the calcaneal tuberosity and extended this medially and then 2 small incisions along the first metatarsal we placed two 3-0 Schanz pins. Throu gh these pins we then attached a 4 hole clamp to the 2 pins in the first metatar hosea and a 6 hole clamp to the 2 pins in the tibia. We then attached 2 outrigger s to the 6 hole clamp on the tibia that was attached to the 2 pins and there was a multi-clamp, multiplane attachment that was placed on the 4 hole clamp on the 2 pins in the first metatarsal, then after we had achieved this, we corrected t he patient's coronal and sagittal plane alignment as well as the patient's lengt h and axial plane alignment and rotation. This was a quite difficult process, b ut once we had it satisfactorily reduced, we then tightened all of these clamps around 2 carbon fiber rods from the large external fixator set and one carbon fi alan yobany from the medium external fixator step. We brought in C-arm and obtained orthogonal radiographs demonstrating appropriate reduction and placement of the implants. Some portion of this was a very unstable fracture and maintaining ta holland, reduced under the tibial plafond was rather difficult, but we finally achie mariela adequate stability and alignment. Wounds were dressed with Xeroform and Kli ng and the open wound was then addressed and sharp excisional debridement was pe rformed of this using a rongeur sharply excising devitalized subcutaneous tissue and skin and then the wound was closed after irrigation with normal saline and Betadine with interrupted 3-0 nylon suture. It was dressed with Xeroform, 4x4s, and Tegaderm. ESTIMATED BLOOD LOSS: Minimal. SPECIMENS REMOVED: None. Mehdi Guajardo MD / MEDQ /[id number] cc: - Mehdi Guajardo MD SUPERVISOR documented in this encounter Plan of Treatment Order Schedule Name Type Priority Associated Diag noses ONE TIME for 1 Occurrences starting 12/2018 until 04/27/2019, 1 completed GENERAL RAD LOWER EXT Imaging Routine EXTERNAL IMAGING ONE TIME for 1 Occurrences starting 12/2018 until 04/27/2019, 1 completed GENERAL RAD LOWER EXT Imaging Routine EXTERNAL IMAGING ONE TIME for 1 Occurrences starting 12/2018 until 04/27/2019, 1 completed GENERAL RAD PELVIS Imaging Routine EXTERNAL IMAGING ONE TIME for 1 Occurrences starting 12/2018 until 04/27/2019, 1 completed GENERAL RAD CHEST Imaging Routine EXTERNAL IMAGING documented as of this encounter Goals Goal Patient Associated Recent Progress Patient-Stat Aut hor Goal Type Problems ed? to get this taken care of so I General Yes Horacio, can get back to normal MATEUSZ Robb documented as of this encounter Procedures Comments Procedure Name Priority Date/Time Associated Diag nosis HC CBC,AUTOMATED Routine 04/29/2019 4:04 AM MEAT SUPERVISOR HC PHOSPHOROUS, SERUM Routine 04/29/2019 4:04 AM MEAT SUPERVISOR HC MAGNESIUM Routine 04/29/2019 4:04 AM MEAT SUPERVISOR HC BASIC METABOLIC PANEL Routine 04/29/2019 4:04 AM MEAT SUPERVISOR TIBIA & FIBULA 2 VIEWS STAT 04/28/2019 RIGHT 1:52 PM MEAT SUPERVISOR ANKLE MIN 3 VIEWS RIGHT STAT 04/28/2019 12:13 PM MEAT SUPERVISOR HC CBC,AUTOMATED Routine 04/28/2019 9:15 AM MEAT SUPERVISOR HC PHOSPHOROUS, SERUM Routine 04/28/2019 9:15 AM MEAT SUPERVISOR HC MAGNESIUM Routine 04/28/2019 9:15 AM MEAT SUPERVISOR HC BASIC METABOLIC PANEL Routine 04/28/2019 9:15 AM MEAT SUPERVISOR CONSULT IV THERAPY TEAM Routine 04/27/2019 10:50 AM MEAT SUPERVISOR FLUORO MOBILE IN OR Routine 04/27/2019 8:17 AM MEAT SUPERVISOR DEBRIDEMENT WOUND DEEP 20 04/27/2019 Trauma SQ CM OR LESS - LOWER 7:23 AM MEAT SUPERVISOR EXTREMITY CT LOWER EXTREM WO CONT STAT 04/27/2019 LEFT 5:[address] SPINE CERVICAL WO Routine 04/27/2019 CONTRAST 5:[address] HEAD WO CONTRAST Routine 04/27/2019 5:[address] ABD/PELV W CONTRAST Routine 04/27/2019 5:[address] CHEST W CONTRAST Routine 04/27/2019 5:22 AM MEAT SUPERVISOR HC BLOOD TYPING, ABO STAT 04/27/2019 CONFIRM 91 4:41 AM MEAT SUPERVISOR CONSULT IV THERAPY TEAM Routine 04/27/2019 4:29 AM MEAT SUPERVISOR HC PTT(APTT) STAT 04/27/2019 4:20 AM MEAT SUPERVISOR HC PT(INR) STAT 04/27/2019 4:20 AM MEAT SUPERVISOR HC CBC W/ AUTOMATED DIFF STAT 04/27/2019 4:20 AM MEAT SUPERVISOR HC ABO GROUP Routine 04/27/2019 4:20 AM MEAT SUPERVISOR HC PHOSPHOROUS, SERUM STAT 04/27/2019 4:20 AM MEAT SUPERVISOR HC MAGNESIUM STAT 04/27/2019 4:20 AM MEAT SUPERVISOR HC LACTIC ACID(LACTATE) STAT 04/27/2019 4:20 AM MEAT SUPERVISOR HC CALCIUM IONIZED STAT 04/27/2019 4:20 AM MEAT SUPERVISOR HC BASIC METABOLIC PANEL STAT 04/27/2019 4:20 AM MEAT SUPERVISOR GENERAL RAD CHEST Routine 04/26/2019 EXTERNAL IMAGING 12:15 AM MEAT SUPERVISOR GENERAL RAD PELVIS Routine 04/26/2019 EXTERNAL IMAGING 12:10 AM MEAT SUPERVISOR GENERAL RAD LOWER EXT Routine 04/26/2019 EXTERNAL IMAGING 12:05 AM MEAT SUPERVISOR GENERAL RAD LOWER EXT Routine 04/26/2019 EXTERNAL IMAGING 12:00 AM MEAT SUPERVISOR documented in this encounter Results * PHOSPHORUS (04/29/2019 4:04 AM MEAT SUPERVISOR) Phosphorus 3.8Comment: NOTE NEW REFERENCE 2.0 - 4.5 MG/DL [facility] MAIN [facility] RANGES Specimen Blood Performing Organization Address [facility] Ph one Number MAIN LAB [address] [place] [address] * MAGNESIUM (04/29/2019 4:04 AM MEAT SUPERVISOR) Magnesium 1.9 1.6 - 2.6 mg/dL [facility] MAIN LAB Specimen Blood Performing Organization Address [facility] Ph one Number MAIN LAB [address] [place] [address] * CBC (04/29/2019 4:04 AM MEAT SUPERVISOR) White Blood 7.1 4.5 - 11.0 K/UL [facility] MAIN LAB Cells RBC 3.71 (L) 4.0 - 5.0 M/UL [facility] MA[facility] Hemoglobin 12.3 12.0 - 15.0 GM/DL [facility] MAIN LAB Hematocrit 36.3 36 - 45 % [facility] MAIN LAB MCV 97.9 80 - 100 FL [facility] MAIN LAB MCH 33.2 26 - 34 PG [facility] MAIN [facility] MCHC 33.9 32.0 - 36.0 G/DL [facility] MAIN [facility] RDW 12.4 11 - 15 % [facility] MAIN LAB Platelet Count 276 150 - 400 K/UL [facility] MAIN [facility] MPV 8.7 7 - 11 FL [facility] MAIN [facility] Specimen Blood Performing Organization Address [facility] one Number [facility] MAIN LAB [address] [place] [address] * BASIC METABOLIC PANEL (04/29/2019 4:04 AM MEAT SUPERVISOR) Sodium 140 137 - 147 MMOL/L [facility] MAIN LAB Potassium 3.6 3.5 - 5.1 MMOL/L [facility] MAIN [facility] Chloride 104 98 - 110 MMOL/L [facility] MAIN [facility] CO2 26 21 - 30 MMOL/L [facility] MAIN LAB Anion Gap 10 3 - 12 [facility] MAIN LAB Glucose 100 70 - 100 MG/DL [facility] MAIN [facility] Blood Urea 11 7 - 25 MG/DL [facility] MAIN [facility] Nitrogen Creatinine 0.73 0.4 - 1.00 MG/DL [facility] MAIN [facility] Calcium 8.6 8.5 - 10.6 MG/DL [facility] MAIN LAB eGFR Non >60 >60 mL/min [facility] MAIN LAB Comment: Citizen [place] The eGFR is not validated f or use in drug dosing adjustments. Continue to use estimated creatinine clearance per dosing reference text. Please contact the Clinical Pharmacist for questions. eGFR >60 >60 mL/min [facility] MAIN LAB Citizen [place] Comment: The eGFR is not validated for use in drug dosing adjustments. Continue to use estimated creatinine clearance per dosing reference text. Please contact the Clinical Pharmacist for questions. Specimen Blood Performing Organization Address [facility] Ph one Number [facility] MAIN LAB [address] [place] [address] * TIBIA & FIBULA 2 VIEWS RIGHT (04/28/2019 1:52 PM MEAT SUPERVISOR) Specimen Right Impressions Performed At [facility] [...] Interface, Radiant Results - 04/28/2019 2:18 PM MEAT SUPERVISOR TIBIA & FIBULA 2 VIEWS RIGHT Indication: [...] MIN 3 VIEWS RIGHT (04/28/2019 12:13 PM MEAT SUPERVISOR) Specimen Right Addenda Addendum by Gregory Busch [...] Interface, Radiant Results - 04/28/2019 12:37 PM MEAT SUPERVISOR ANKLE MIN 3 VIEWS RIGHT Clinical Indication: [...] joint spaces main tained. Performing Organization Address [facility] one Number [facility] RAD RESULTS * PHOSPHORUS (04/28/2019 9:15 AM MEAT SUPERVISOR) Phosphorus 2.0Comment: NOTE NEW REFERENCE 2.0 - 4.5 MG/DL MAIN LAB RANGES Specimen Blood Performing Organization Address [facility] one Number MAIN LAB [address] [place] [address] * MAGNESIUM (04/28/2019 9:15 AM MEAT SUPERVISOR) Magnesium 1.7 1.6 - 2.6 mg/dL MAIN LAB Specimen Blood Performing Organization Address [facility] one Number MAIN LAB [address] [place] [address] * CBC (04/28/2019 9:15 AM MEAT SUPERVISOR) White Blood 7.6 4.5 - 11.0 K/UL MAIN LAB Cells RBC 4.10 4.0 - 5.0 M/UL MAIN LAB Hemoglobin 13.1 12.0 - 15.0 GM/DL [facility] MAIN LAB Hematocrit 39.2 36 - 45 % MAIN LAB MCV 95.7 80 - 100 FL [facility] MAIN LAB MCH 32.0 26 - 34 PG MAIN LAB MCHC 33.4 32.0 - 36.0 G/DL MAIN LAB RDW 12.1 11 - 15 % MAIN LAB Platelet Count 276 150 - 400 K/UL [facility] MAIN LAB MPV 8.5 7 - 11 FL MAIN LAB Specimen Blood Performing Organization Address [facility] one Number MAIN LAB [address] [place] [address] * BASIC METABOLIC PANEL (04/28/2019 9:15 AM MEAT SUPERVISOR) Sodium 141 137 - 147 MMOL/L [facility] MAIN LAB Potassium 3.0 (L) 3.5 - 5.1 MMOL/L [facility] MAIN LAB Chloride 109 98 - 110 MMOL/L [facility] MAIN LAB CO2 23 21 - 30 MMOL/L [facility] MAIN LAB Anion Gap 9 3 - 12 [facility] MAIN LAB Glucose 91 70 - 100 MG/DL [facility] MAIN LAB Blood Urea 8 7 - 25 MG/DL [facility] MAIN LAB Nitrogen Creatinine 0.55 0.4 - 1.00 MG/DL [facility] MAIN LAB Calcium 7.5 (L) 8.5 - 10.6 MG/DL [facility] MAIN LAB eGFR Non >60 >60 mL/min [facility] MAIN LAB Comment: Citizen [place] The eGFR is not validated f or use in drug dosing adjustments. Continue to use estimated creatinine clearance per dosing reference text. Please contact the Clinical Pharmacist for questions. eGFR >60 >60 mL/min [facility] MAIN LAB Citizen [place] Comment: The eGFR is not validated for use in drug dosing adjustments. Continue to use estimated creatinine clearance per dosing reference text. Please contact the Clinical Pharmacist for questions. Specimen Blood Performing Organization Address City/State/Zipcode Ph one Number [facility] MAIN LAB [address] [place] [address] * FLUORO MOBILE IN OR (04/27/2019 8:17 AM MEAT SUPERVISOR) Specimen Narrative Performed At This order has been auto finalized and does not conta in a result. [facility] Performing Organization Address City/[facility]/Zipcode Ph one Number [facility] * CT LOWER EXTREM WO CONT LEFT (04/27/2019 5:32 AM MEAT SUPERVISOR) Specimen Left Impressions Performed At 1. Moderately [...] Interface, Radiant Results - 04/27/2019 11:10 AM MEAT SUPERVISOR Exam: CT LOWER EXTREM WO CONT LEFT [...] SPINE CERVICAL WO CONTRAST (04/27/2019 5:32 AM MEAT SUPERVISOR) Specimen Impressions Performed At Head: [facility] RAD [...] Interface, Radiant Results - 04/27/2019 12:30 PM MEAT SUPERVISOR EXAM: CT HEAD AND C-SPINE HISTORY: Trauma, [...] CT HEAD WO CONTRAST (04/27/2019 5:32 AM MEAT SUPERVISOR) Specimen Impressions Performed At Head: [facility] RAD [...] Interface, Radiant Results - 04/27/2019 12:30 PM MEAT SUPERVISOR EXAM: CT HEAD AND C-SPINE HISTORY: Trauma, [...] CT ABD/PELV W CONTRAST (04/27/2019 5:22 AM MEAT SUPERVISOR) Specimen Impressions Performed At CHEST: [facility] [...] Interface, Radiant Results - 04/27/2019 8:[address] CHEST, ABDOMEN AND PELVIS Clinical Indication: [...] CT CHEST W CONTRAST (04/27/2019 5:22 AM MEAT SUPERVISOR) Specimen Impressions Performed At CHEST: [facility] [...] Interface, Radiant Results - 04/27/2019 8:[address] CHEST, ABDOMEN AND PELVIS Clinical Indication: [...] on 04/27/2019 8:09 AM. Performing Organization Address City/[facility] Number [facility] RESULTS * BLOOD TYPE CONFIRMATION - ORDER ONLY IF REQUESTED BY LAB (04/27/2019 4:41 AM MEAT SUPERVISOR) ABO/RH(D) O POS MAIN LAB Specimen Blood Performing Organization Address [facility] one Number MAIN LAB [address] [place] [address] * TYPE & CROSSMATCH (04/27/2019 4:20 AM MEAT SUPERVISOR) Units Ordered 0 MAIN LAB Crossmatch 04/30/2019 MAIN LAB Expires Record Check 2ND TYPE REQUIRED MAIN LAB ABO/RH(D) O POS MAIN LAB Antibody Screen NEG MAIN LAB Electronic YES MAIN LAB Crossmatch Specimen Blood Performing Organization Address [facility] one Number MAIN LAB [address] [place] [address] * IONIZED CALCIUM (04/27/2019 4:20 AM MEAT SUPERVISOR) Ionized Calcium 1.09 1.0 - 1.3 MMOL/L MAIN LAB Specimen Blood Performing Organization Address [facility] one Number MAIN LAB [address] [place] [address] * PHOSPHORUS (04/27/2019 4:20 AM MEAT SUPERVISOR) Phosphorus 2.9Comment: NOTE NEW REFERENCE 2.0 - 4.5 MG/DL MAIN LAB RANGES Specimen Blood Performing Organization Address [facility] one Number MAIN LAB [address] [place] [address] * MAGNESIUM (04/27/2019 4:20 AM MEAT SUPERVISOR) Magnesium 1.6 1.6 - 2.6 mg/dL MAIN LAB Specimen Blood Performing Organization Address [facility] Ph one Number [facility] MAIN LAB [address] [place] [address] * PTT (APTT) (04/27/2019 4:20 AM MEAT SUPERVISOR) APTT 29.2 24.0 - 36.5 SEC MAIN LAB Specimen Blood Performing Organization Address [facility] one Number MAIN LAB [address] [place] [address] * PROTIME INR (PT) (04/27/2019 4:20 AM MEAT SUPERVISOR) INR 1.0 0.8 - 1.2 MAIN LAB Specimen Blood Performing Organization Address [facility] one Number MAIN LAB [address] [place] [address] * LACTIC ACID(LACTATE) (04/27/2019 4:20 AM MEAT SUPERVISOR) Lactic Acid 1.0 0.5 - 2.0 MMOL/L MAIN LAB Specimen Blood Performing Organization Address [facility] one Number MAIN LAB [address] [place] [address] * BASIC METABOLIC PANEL (04/27/2019 4:20 AM MEAT SUPERVISOR) Sodium 143 137 - 147 MMOL/L [facility] MAIN LAB Potassium 3.9 3.5 - 5.1 MMOL/L [facility] MAIN [facility] Chloride 108 98 - 110 MMOL/L [facility] MAIN LAB CO2 23 21 - 30 MMOL/L [facility] MAIN LAB Anion Gap 12 3 - 12 [facility] MAIN LAB Glucose 94 70 - 100 MG/DL [facility] MAIN LAB Blood Urea 10 7 - 25 MG/DL MAIN LAB Nitrogen Creatinine 0.76 0.4 - 1.00 MG/DL MAIN LAB Calcium 8.6 8.5 - 10.6 MG/DL MAIN LAB eGFR Non >60 >60 mL/min MAIN LAB Comment: Citizen [place] The eGFR is not validated f or use in drug dosing adjustments. Continue to use estimated creatinine clearance per dosing reference text. Please contact the Clinical Pharmacist for questions. eGFR >60 >60 mL/min MAIN LAB Citizen [place] Comment: The eGFR is not validated for use in drug dosing adjustments. Continue to use estimated creatinine clearance per dosing reference text. Please contact the Clinical Pharmacist for questions. Specimen Blood Performing Organization Address [facility] one Number MAIN LAB [address] [place] [address] * CBC AND DIFF (04/27/2019 4:20 AM MEAT SUPERVISOR) White Blood 10.4 4.5 - 11.0 K/UL [facility] MAIN LAB Cells RBC 3.80 (L) 4.0 - 5.0 M/UL [facility] MAIN LAB Hemoglobin 12.4 12.0 - 15.0 GM/DL [facility] MAIN LAB Hematocrit 36.5 36 - 45 % [facility] MAIN LAB MCV 96.1 80 - 100 FL [facility] MAIN LAB MCH 32.6 26 - 34 PG [facility] MAIN LAB MCHC 33.9 32.0 - 36.0 G/DL [facility] MAIN LAB RDW 12.2 11 - 15 % [facility] MAIN LAB Platelet Count 278 150 - 400 K/UL [facility] MAIN [facility] MPV 8.7 7 - 11 FL [facility] MAIN LAB Neutrophils 76 41 - 77 % [facility] MAIN [facility] Lymphocytes 17 (L) 24 - 44 % [facility] Monocytes 7 4 - 12 % [facility]IN [facility] Eosinophils 0 0 - 5 % [facility] MAIN [facility] Basophils 0 0 - 2 % [facility] MAIN [facility] Absolute 7.90 (H) 1.8 - 7.0 K/UL [facility] MAIN LAB Neutrophil Count Absolute Lymph 1.80 1.0 - 4.8 K/UL [facility] MAIN [facility] Count Absolute 0.70 0 - 0.80 K/UL [facility] MAIN LAB Monocyte Count Absolute 0.00 0 - 0.45 K/UL [facility] MAIN LAB Eosinophil Count Absolute 0.00 0 - 0.20 K/UL [facility] MAIN [facility] Basophil Count Specimen Blood Performing Organization Address City/State/Zipcode Ph one Number [facility] [address] [place] [address] * GENERAL RAD CHEST EXTERNAL IMAGING (04/26/2019 12:15 AM MEAT SUPERVISOR) Specimen Narrative Performed At This order has been auto finalized and does not contain a result. * GENERAL RAD PELVIS EXTERNAL IMAGING (04/26/2019 12:10 AM MEAT SUPERVISOR) Specimen Narrative Performed At This order has been auto finalized and does not contain a result. * GENERAL RAD LOWER EXT EXTERNAL IMAGING (04/26/2019 12:05 AM MEAT SUPERVISOR) Specimen Narrative Performed At This order has been auto finalized and does not contain a result. * GENERAL RAD LOWER EXT EXTERNAL IMAGING (04/26/2019 12:00 AM MEAT SUPERVISOR) Specimen Narrative Performed At This order has been auto finalized and does not contain a result. documented in this encounter Visit Diagnoses Diagnosis Trauma Injury, other and unspecified, unspecif ied site documented in this encounter Admitting Diagnoses Diagnosis Trauma Injury, other and unspecified, unspecif ied site documented in this encounter Administered Medications Action Date Dose Rate Site Medication Order MAR Action 04/29/2019 8:51 AM MEAT SUPERVISOR 650 mg acetaminophen (TYLENOL) tablet 650 mg Given 650 mg, Oral, EVERY 6 HOURS, First dos e on 04/27/19 at 1345, Until Discontinued, TOTAL ACETAMINOPHEN DOSE NOT TO EXCEED 4GM DAILY, 650 mg Given 04/29/2019 2:56 AM MEAT SUPERVISOR 650 mg Given 04/28/2019 8:34 PM MEAT SUPERVISOR 04/29/2019 10:03 AM MEAT SUPERVISOR 0.5 mg ALPRAZolam (XANAX) tablet 0.5 mg Given 0.5 mg, Oral, THREE TIMES DAILY PRN, Starting 04/27/19 at 1547, Until Sun04/29/19 at 1400, Anxiety PO 0.5 mg Given 04/28/2019 3:49 PM MEAT SUPERVISOR 04/29/2019 8:34 AM MEAT SUPERVISOR 150 mg buPROPion XL (WELLBUTRIN XL) tablet 150 Given mg 150 mg, Oral, DAILY, First dose on Sun04/28/19 at 0900, Until Discontinued, DO NOT CRUSH, 150 mg Given 04/28/2019 8:50 AM MEAT SUPERVISOR 04/29/2019 8:35 AM MEAT SUPERVISOR 30 mg Arm, Rig ht enoxaparin (LOVENOX) syringe 30 mg Given 30 mg, Subcutaneous, TWICE DAILY, First dose on 04/27/19 at 2100, Until Discontinued, For patients undergoing surgery: Consult physician in advance - - enoxaparin is an anticoagulant and may need to be held for 12hr prior to surgery or invasive procedures. NOTE: This is a HIGH ALERT Medication., 30 mg Abdomen:RLQ Given 04/28/2019 8:36 PM MEAT SUPERVISOR 30 mg Abdominal Tissue Given 04/28/2019 8:51 AM MEAT SUPERVISOR 04/29/2019 6:54 AM MEAT SUPERVISOR 200 mg gabapentin (NEURONTIN) capsule 200 mg Given 200 mg, Oral, EVERY 8 HOURS, First dos e on 04/27/19 at 1600, Until Discontinued 200 mg Given 04/28/2019 10:53 PM MEAT SUPERVISOR 200 mg Given 04/28/2019 2:09 PM MEAT SUPERVISOR 04/28/2019 8:37 PM MEAT SUPERVISOR 5 mg melatonin tablet 5 mg Given 5 mg, Oral, AT BEDTIME DAILY, First dos e on 04/28/19 at 2100, Until Discontinued 04/29/2019 8:34 AM MEAT SUPERVISOR 750 mg methocarbamol (ROBAXIN) tablet 750 mg Given 750 mg, Oral, THREE TIMES DAILY, First dose on 04/27/19 at 1600, Until Discontinued 750 mg Given 04/28/2019 8:37 PM MEAT SUPERVISOR 750 mg Given 04/28/2019 2:09 PM MEAT SUPERVISOR 04/29/2019 6:54 AM MEAT SUPERVISOR 10 mg oxyCODONE (ROXICODONE) tablet 5-10 mg Given 5-10 mg, Oral, EVERY 4 HOURS PRN, Starting 04/27/19 at 1547, Until Sun04/29/19 at 1400, Pain PO 10 mg Given 04/29/2019 2:56 AM MEAT SUPERVISOR 10 mg Given 04/28/2019 10:53 PM MEAT SUPERVISOR 04/29/2019 8:34 AM MEAT SUPERVISOR 17 g polyethylene glycol 3350 (MIRALAX) Given packet 17 g 17 g (1 packet), Oral, DAILY, First dos e on 04/27/19 at 1400, Until Discontinued, 8.5 GRAMS = 0.5 PACKET 17 GRAMS = 1 PACKET 34 GRAMS = 2 PACKETS, 17 g Given 04/28/2019 8:50 AM MEAT SUPERVISOR 17 g Given 04/27/2019 1:55 PM MEAT SUPERVISOR 04/29/2019 8:34 AM MEAT SUPERVISOR 1 tablet senna (SENOKOT) tablet 1 tablet Given 1 tablet, Oral, TWICE DAILY, First dose on 04/27/19 at 1400, Until Discontinued, Hold for loose stools, 1 tablet Given 04/28/2019 8:50 AM MEAT SUPERVISOR 1 tablet Given 04/27/2019 8:42 PM MEAT SUPERVISOR documented in this encounter
--- OUTSIDE RECORDS SUMMARY | 2019-05-22 15:42 | XMS REPORT | Encounter Summary ---
Author Author [facility] Organization [facility] Address Unknown Phone Unavailable Care Team Providers Care Assistant Professor Of Business Name Role Phone Ashley Ojeda RN Unavailable Unavailable Self, Shakir ROCHA PCP Reason for Visit * Auth/Cert Referred By Contact Referred To Contact Status Reason Specialty Diagnoses / Procedures Diagnoses Trauma fractured let ankle Encounter Details Care Team Description Date Type Department Isaias Rodriguez MD [address] [place], [place] [id number] Aniceto Lauren MD [address] [place] [address] 04/27/2019 Anesthesia [facility] [place] [address] [address] Anesthesia Record Responsible Anesthesiologist Anesthesia Start Time Anesthesi a Stop Time Procedure Name Isaias Rodriguez MD 04/27/19 0725 04/27/19 0835 APPLICATION OF SPANNING EXTERNAL FIXATOR ON LEFT LOWER EXTREMITY, IRRIGATION AND DEBRIDEMENT WITH WOUND CLOSURE LEFT LOWER EXTREMITY (Left Leg Lower) Date Time Event Comment 708 AN Equip Check 2018 0720 0723 In Room 0725 Anes Start 0725 An Start Data 0733 An Induction The patient was ree valuated immediately before moderate or deep sedation use and before anesthesia induction. 0736 An Intubation 0742 Antibiotic Given 0745 Proc Start 0746 Anesthesia Ready 0829 An Extubation 0831 an stop data 0833 Handoff to RN I completed my SBAR handoff to the receiving nurse. 0835 An Stop Meds Name Total midazolam (VERSED) 1 mg/mL injection 2 mg fentaNYL PF (SUBLIMAZE) injection 100 mcg lidocaine (2%) 200 mg/10mL Injection 100 mg syringe propofol (DIPRIVAN) 200 mg/ 20 mL 200 mg injection (VIAL) succinylcholine (ANECTINE) injection 100 mg (VIAL) rocuronium (ZEMURON) injection 10 mg ondansetron (ZOFRAN) injection 4 mg dexamethasone (DECADRON) 4 mg/mL 4 mg injection sugammadex (BRIDION) 100 mg/mL iv soln 180 mg dextran 70/hypromellose (GENTEAL TEARS; 2 drop BION TEARS) ophthalmic solution ketamine (KETALAR) 10 mg/mL injection 30 mg ceFAZolin (ANCEF) injection 2 g acetaminophen (OFIRMEV) 1,000 mg 1,000 mg injection * Name O2 N2O Inspired N2O Sevoflurane [...] Tania, (NOT for Abrasion Earl Pressure Injuries) 04/27/19 0800 by Kulwant Espinoza RN Peripheral 04/27/19; PreHospital Outside Facility; 04/27/19 0000 by DELTA Lovett L; Antecubital; 04/27/19; 0800 MATEUSZ Tabares 04/29/19 1145 by Irene Escalera RN Peripheral 04/27/19; 0505; IV Therapy; R; 9 0505 by DELTA Snow Antecubital (brachial ); 20 G; No; Genesis russ RN Ultrasound; 1; 1.75 inches; Therapy completed; 04/29/19; 1145 04/27/19 0829 by Daniel Fowler CRNA ETT 04/27/19; 0736; Mask ventilation not 1 06/28/18 0736 by Malcolm attempted (0); Rapid sequence, StyletDaniel CRNA Video laryngoscopy; Single-Lumen, Cuffed; 7mm; GlideScope; 3; Oral; 1-Ful l view of the glottis; 1 insertion attempt; Auscultation, ETCO2 Detector; 21 centimeters; 04/27/19; 08 documented in this encounter Social History Date Tobacco Use Types Packs/Day Years Used Never Assessed Sex Assigned at Date Recorded Not on file Industry Job Start Date Occupation Not on file Not on file Not on file Travel End Travel History Travel Start No recent travel history available. documented as of this encounter OR Notes * Anesthesia Postprocedure Evaluation - Yolanda Alva CRNA - 04/27/2019 3:33 PM ORDER ENTRY Post-Anesthesia Evaluation Name: Lizzette Cunningham : 1975 Age: 43 y.o. Sex: f emale Procedure Date: 04/27/2019 Procedure(s) (LRB): APPLICATION OF SPANNING EXTERNAL FIXATOR ON LEFT LOWER EXTREMITY, IRRIGATION AND DEBRIDEMENT WITH WOUND CLOSURE LEFT LOWER EXTREMITY (Left) Surgeon: Surgeon(s): Husam Garcia MD Heddings, Archie A, MD Falcon, Spencer, MD Post-Anesthesia Vitals BP: 134/70 (04/27 1500) Pulse: 94 (04/27 1500) Respirations: 17 PER MINUTE (04/27 1500) SpO2: 97 % (04/27 1500) SpO2 Pulse: 90 (04/27 1500) No vitals data found for the desired time range. Post Anesthesia Evaluation Note Evaluation location: ICU Patient participation: recovered; patient participated in evaluation Level of consciousness: sleepy but conscious Pain score: 4 Pain management: adequate Hydration: normovolemia Temperature: 36.0C - 38.4C Airway patency: adequate Perioperative Events Post-op nausea and vomiting: no PONV Postoperative Status Cardiovascular status: hemodynamically stable Respiratory status: spontaneous ventilation ICU Information Staff involved in transport include: ROSY and ENEIDA Perioperative Events Perioperative Event: No Emergency Case Activation: No R ENTRY Associated attestation - Isaias Rodriguez MD - 04/28/2019 6:53 AM ORDER ENTRY ATTESTATION Post-Anesthesia Evaluation Attestation: I reviewed and agree the indicated post- anesthesia care was provided. I have reviewed pool portions of the indicated post anesthesia care. I have examined the patient's vitals, physical status, and com plications and agree with what is documented. Staff name: Earl Rodriguez MD Date: 04/28/2019 Staff name: Earl Rodriguez MD Date: 04/28/2019 * Anesthesia Preprocedure Evaluation - Aniceto Lauren MD - 04/27/2019 6:43 AM ORDER ENTRY Anesthesia Pre-Procedure Evaluation Name: Lizzette Cunningham : 1975 Age: 43 y.o. Sex: f emale Procedure Date: 04/27/2019 Procedure(s) (LRB): SURGICAL STABILIZATION LEFT LOWER EXTREMITY, DEBRIDEMENT WOUND DEEP 20 SQ CM OR LESS - LOWER EXTREMITY (Left) Physical Assessment Vital Signs (last filed in past 24 hours): BP: 105/89 (04/27 528) Temp: 37.8 C (100 F) (04/27 412) Pulse: 114 (04/27 528) Respirations: 25 PER MINUTE (04/27 528) SpO2: 95 % (04/27 528) Height: 160 cm (63") (04/27 410) Patient History Allergies not on file Current Medications Not on File Review of Systems/Medical History Patient summary reviewed Pertinent labs reviewed PONV Screening: Female gender and Non-smoker No history of anesthetic complications No family history of anesthetic complications Airway - negative Pulmonary Current smoker (Vapes regularly); patient smoked on day of surgery Cardiovascular - negative Exercise tolerance: >4 METS GI/Hepatic/Renal - negative Neuro/Psych Psychiatric history Depression Anxiety Musculoskeletal Fractures Endocrine/Other - negative Constitution - negative Physical Exam Airway Findings Mallampati: III Neck ROM: limited Mouth opening: limited Comments: Patient currently in c-collar Dental Findings: Negative Cardiovascular Findings: Rhythm: regular Rate: normal Pulmonary Findings: Breath sounds clear to auscultation. Abdominal Findings: Not obese Neurological Findings: Alert and oriented x 3 Constitutional findings: No acute distress Well-developed Well-nourished Diagnostic Tests Hematology: Lab Results Component Value Date HGB 12.4 04/27/2019 HCT 36.5 04/27/2019 PLTCT 278 04/27/2019 WBC 10.4 04/27/2019 NEUT 76 04/27/2019 ANC 7.90 04/27/2019 ALC 1.80 04/27/2019 MALGORZATA 7 04/27/2019 AMC 0.70 04/27/2019 EOSA 0 04/27/2019 ABC 0.00 04/27/2019 MCV 96.1 04/27/2019 MCH 32.6 04/27/2019 MCHC 33.9 04/27/2019 MPV 8.7 04/27/2019 RDW 12.2 04/27/2019 General Chemistry: Lab Results Component Value Date NA 143 04/27/2019 K 3.9 04/27/2019 CL 108 04/27/2019 CO2 23 04/27/2019 GAP 12 04/27/2019 BUN 10 04/27/2019 CR 0.76 04/27/2019 GLU 94 04/27/2019 CA 8.6 04/27/2019 LACTIC 1.0 04/27/2019 OBSCA 1.09 04/27/2019 MG 1.6 04/27/2019 PO4 2.9 04/27/2019 Coagulation: Lab Results Component Value Date PTT 29.2 04/27/2019 INR 1.0 04/27/2019 Anesthesia Plan ASA score: 2 emergent Plan: general, regional for postoperative pain and invasive monitoring Special equipment/procedures: Art line Induction method: intravenous NPO status: full stomach and waived due to emergency Informed Consent Anesthetic plan and risks discussed with patient. Use of blood products discussed with patient Blood Consent: consented Plan discussed with: anesthesiologist, attending and resident. R ENTRY documented in this encounter Plan of Treatment [...] Dose Rate Site Medication Order MAR Action 04/27/2019 7:40 AM ORDER ENTRY 1,000 mg acetaminophen (OFIRMEV) injection Given Administer over 15 Minutes, INTRA-PROCEDURE MED, Starting 04/27/19 at 0740, Until 04/27/19 at 1205, Anesthesia Intra-op 04/27/2019 7:42 AM ORDER ENTRY 2 g ceFAZolin (ANCEF) injection Given INTRA-PROCEDURE MED, Starting 04/27/19 at 0742, Until 04/27/19 at 1205, Anesthesia Intra-op 04/27/2019 8:19 AM ORDER ENTRY 4 mg dexamethasone (DECADRON) injection Given Intravenous, INTRA-PROCEDURE MED, Starting 04/27/19 at 0819, Until 04/27/19 at 1205, Anesthesia Intra-op 04/27/2019 7:36 AM ORDER ENTRY 2 drops dextran 70/hypromellose (GENTEAL TEARS) Given ophthalmic solution INTRA-PROCEDURE MED, Starting 04/27/19 at 0736, Until 04/27/19 at 1205, Anesthesia Intra-op 04/27/2019 7:29 AM ORDER ENTRY 100 mcg fentaNYL citrate PF (SUBLIMAZE) Given injection INTRA-PROCEDURE MED, Starting 04/27/19 at 0729, Until 04/27/19 at 1205, Anesthesia Intra-op 04/27/2019 7:43 AM ORDER ENTRY 30 mg ketamine (KETALAR) injection Given INTRA-PROCEDURE MED, Starting 04/27/19 at 0743, Until 04/27/19 at 1205, Anesthesia Intra-op 04/27/2019 7:33 AM ORDER ENTRY 100 mg lidocaine (PF) injection Given INTRA-PROCEDURE MED, Starting 04/27/19 at 0733, Until 04/27/19 at 1205, Anesthesia Intra-op 04/27/2019 7:24 AM ORDER ENTRY 2 mg midazolam (VERSED) injection Given Intravenous, INTRA-PROCEDURE MED, Starting 04/27/19 at 0724, Until 04/27/19 at 1205, Anesthesia Intra-op 04/27/2019 7:55 AM ORDER ENTRY 4 mg ondansetron (ZOFRAN) injection Given Intravenous, INTRA-PROCEDURE MED, Starting 04/27/19 at 0755, Until 04/27/19 at 1205, Anesthesia Intra-op 04/27/2019 7:33 AM ORDER ENTRY 200 mg propofol (DIPRIVAN) injection Given INTRA-PROCEDURE MED, Starting 04/27/19 at 0733, Until 04/27/19 at 1205, Anesthesia Intra-op 04/27/2019 7:44 AM ORDER ENTRY 10 mg rocuronium injection Given Intravenous, INTRA-PROCEDURE MED, Starting 04/27/19 at 0744, Until 04/27/19 at 1205, Anesthesia Intra-op 04/27/2019 7:33 AM ORDER ENTRY 100 mg succinylcholine (ANECTINE) injection Given Intravenous, INTRA-PROCEDURE MED, Starting 04/27/19 at 0733, Until 04/27/19 at 1205, Anesthesia Intra-op 04/27/2019 8:19 AM ORDER ENTRY 180 mg sugammadex (BRIDION) injection Given Intravenous, INTRA-PROCEDURE MED, Starting 04/27/19 at 0819, Until 04/27/19 at 1205, Anesthesia Intra-op documented in this encounter
--- OUTSIDE RECORDS SUMMARY | 2019-05-22 15:42 | XMS REPORT | Encounter Summary ---
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 Interface, Radiant Results - 04/27/2019 8:24 AM ULTRASONIC HAND SOLDERER CT CHEST, ABDOMEN AND PELVIS Clinical Indication: [...] on 04/27/2019 8:09 AM. Performing Organization Address [facility] one Number KU RAD RESULTS * BLOOD TYPE CONFIRMATION - ORDER ONLY IF REQUESTED BY LAB (04/27/2019 4:41 AM ULTRASONIC HAND SOLDERER) ABO/RH(D) O POS MAIN LAB Specimen Blood Performing Organization Address [facility] one Number MAIN LAB [address] [place] [address] * TYPE & CROSSMATCH (04/27/2019 4:20 AM ULTRASONIC HAND SOLDERER) Units Ordered 0 MAIN LAB Crossmatch 04/30/2019 MAIN LAB Expires Record Check 2ND TYPE REQUIRED MAIN LAB ABO/RH(D) O POS MAIN LAB Antibody Screen NEG MAIN LAB Electronic YES MAIN LAB Crossmatch Specimen Blood Performing Organization Address [facility] one Number MAIN LAB [address] [place] [address] * IONIZED CALCIUM (04/27/2019 4:20 AM ULTRASONIC HAND SOLDERER) Ionized Calcium 1.09 1.0 - 1.3 MMOL/L MAIN LAB Specimen Blood Performing Organization Address [facility] one Number MAIN LAB [address] [place] [address] * PHOSPHORUS (04/27/2019 4:20 AM ULTRASONIC HAND SOLDERER) Phosphorus 2.9Comment: NOTE NEW REFERENCE 2.0 - 4.5 MG/DL KU MAIN LAB RANGES Specimen Blood Performing Organization Address [facility] one Number MAIN LAB [address] [place] [address] * MAGNESIUM (04/27/2019 4:20 AM ULTRASONIC HAND SOLDERER) Magnesium 1.6 1.6 - 2.6 mg/dL KU MAIN LAB Specimen Blood Performing Organization Address [facility] one Number MAIN LAB [address] [place] [address] * PTT (APTT) (04/27/2019 4:20 AM ULTRASONIC HAND SOLDERER) APTT 29.2 24.0 - 36.5 SEC MAIN LAB Specimen Blood Performing Organization Address [facility] one Number MAIN LAB [address] [place] [address] * PROTIME INR (PT) (04/27/2019 4:20 AM ULTRASONIC HAND SOLDERER) INR 1.0 0.8 - 1.2 [facility] MAIN LAB Specimen Blood Performing Organization Address [facility] one Number MAIN LAB [address] [place] [address] * LACTIC ACID(LACTATE) (04/27/2019 4:20 AM ULTRASONIC HAND SOLDERER) Lactic Acid 1.0 0.5 - 2.0 MMOL/L K[facility] MAIN LAB Specimen Blood Performing Organization Address [facility] one Number MAIN LAB [address] [place] [phone] * BASIC METABOLIC PANEL (04/27/2019 4:20 AM ULTRASONIC HAND SOLDERER) Sodium 143 137 - 147 MMOL/L [facility] MAIN LAB Potassium 3.9 3.5 - 5.1 MMOL/L [facility] MAIN LAB Chloride 108 98 - 110 MMOL/L [facility] MAIN LAB CO2 23 21 - 30 MMOL/L [facility] MAIN LAB Anion Gap 12 3 - 12 [facility] MAIN LAB Glucose 94 70 - 100 MG/DL [facility] MAIN LAB Blood Urea 10 7 - 25 MG/DL [facility] MAIN LAB Nitrogen Creatinine 0.76 0.4 - 1.00 MG/DL [facility] MAIN LAB Calcium 8.6 8.5 - 10.6 MG/DL [facility] MAIN LAB eGFR Non >60 >60 mL/min [facility] MAIN LAB Comment: [place] The eGFR is not validated f or use in drug dosing adjustments. Continue to use estimated creatinine clearance per dosing reference text. Please contact the Clinical Pharmacist for questions. eGFR >60 >60 mL/min [facility] MAIN LAB [place] Comment: The eGFR is not validated for use in drug dosing adjustments. Continue to use estimated creatinine clearance per dosing reference text. Please contact the Clinical Pharmacist for questions. Specimen Blood Performing Organization Address [facility] one Number [facility]U MAIN LAB [address] [place] [address] * CBC AND DIFF (04/27/2019 4:20 AM ULTRASONIC HAND SOLDERER) White Blood 10.4 4.5 - 11.0 K/UL [...] Basophil Count Specimen Blood Performing Organization Address City/[facility] one Number [facility]U MAIN LAB [address] [place] [address] * GENERAL RAD CHEST EXTERNAL IMAGING (04/26/2019 12:15 AM ULTRASONIC HAND SOLDERER) Specimen Narrative Performed At This order has been auto finalized and does not contain a result. * GENERAL RAD PELVIS EXTERNAL IMAGING (04/26/2019 12:10 AM ULTRASONIC HAND SOLDERER) Specimen Narrative Performed At This order has been auto finalized and does not contain a result. * GENERAL RAD LOWER EXT EXTERNAL IMAGING (04/26/2019 12:05 AM ULTRASONIC HAND SOLDERER) Specimen Narrative Performed At This order has been auto finalized and does not contain a result. * GENERAL RAD LOWER EXT EXTERNAL IMAGING (04/26/2019 12:00 AM ULTRASONIC HAND SOLDERER) Specimen Narrative Performed At This order has been auto finalized and does not contain a result. documented in this encounter Visit Diagnoses Diagnosis Trauma - Primary Injury, other and unspecified, unspecif ied site Generalized anxiety disorder Type I or II open displaced pilon fract ure of left tibia, initial encounter Impaired mobility and ADLs Mechanical problems with limbs Closed traumatic nondisplaced fracture of medial malleolus of right tibia, initial encounter Acute pain due to trauma Sleep disorder Sleep disturbance, unspecified Open pilon fracture Unspecified open fracture of ankle Closed fracture of distal end of right tibia documented in this encounter Admitting Diagnoses Diagnosis Trauma Injury, other and unspecified, unspecif ied site documented in this encounter Administered Medications Action Date Dose Rate Site Medication Order MAR Action 04/29/2019 8:51 AM ULTRASONIC HAND SOLDERER 650 mg acetaminophen (TYLENOL) tablet 650 mg Given 650 mg, Oral, EVERY 6 HOURS, First dos e on Sun04/27/19 at 1345, Until Discontinued, TOTAL ACETAMINOPHEN DOSE NOT TO EXCEED 4GM DAILY, 650 mg Given 04/29/2019 2:56 AM ULTRASONIC HAND SOLDERER 650 mg Given 04/28/2019 8:34 PM ULTRASONIC HAND SOLDERER 04/29/2019 10:03 AM ULTRASONIC HAND SOLDERER 0.5 mg ALPRAZolam (XANAX) tablet 0.5 mg Given 0.5 mg, Oral, THREE TIMES DAILY PRN, Starting Sun04/27/19 at 1547, Until Sun04/29/19 at 1400, Anxiety PO 0.5 mg Given 04/28/2019 3:49 PM ULTRASONIC HAND SOLDERER 04/29/2019 8:34 AM ULTRASONIC HAND SOLDERER 150 mg buPROPion XL (WELLBUTRIN XL) tablet 150 Given mg 150 mg, Oral, DAILY, First dose on Sun04/28/19 at 0900, Until Discontinued, DO NOT CRUSH, 150 mg Given 04/28/2019 8:50 AM ULTRASONIC HAND SOLDERER 04/28/2019 1:29 AM ULTRASONIC HAND SOLDERER 2 g ceFAZolin (ANCEF) IVP 2 g Given 2 g, Intravenous, EVERY 8 HOURS, 3 doses, First dose on 04/27/19 at 0945, Last dose on 04/28/19 at 0145, First dose to be administered 8 hours after intra-op dose IV PUSH -- RECONSTITUTE each 1 g vial by adding 10 mL 0.9% NACL, 2 g Given 04/27/2019 5:41 PM ULTRASONIC HAND SOLDERER 2 g Given 04/27/2019 8:54 AM ULTRASONIC HAND SOLDERER 04/29/2019 8:35 AM ULTRASONIC HAND SOLDERER 30 mg Arm, Rig ht enoxaparin (LOVENOX) [...] 30 mg Abdomen:RLQ Given 04/28/2019 8:36 PM ULTRASONIC HAND SOLDERER 30 mg Abdominal Tissue Given 04/28/2019 8:51 AM ULTRASONIC HAND SOLDERER 04/27/2019 9:54 AM ULTRASONIC HAND SOLDERER 50 mcg fentaNYL citrate PF (SUBLIMAZE) Given injection 25-50 mcg 25-50 mcg, Intravenous, EVERY 1 HOUR PRN, Starting 04/27/19 at 0442, Unti l Sun04/27/19 at 1011, Pain Injectable, Admission/Obs/Extended Recovery 50 mcg Given 04/27/2019 8:53 AM ULTRASONIC HAND SOLDERER 50 mcg Given 04/27/2019 5:38 AM ULTRASONIC HAND SOLDERER 04/29/2019 6:54 AM ULTRASONIC HAND SOLDERER 200 mg gabapentin (NEURONTIN) capsule 200 mg Given 200 mg, Oral, EVERY 8 HOURS, First dos e on 04/27/19 at 1600, Until Discontinued 200 mg Given 04/28/2019 10:53 PM ULTRASONIC HAND SOLDERER 200 mg Given 04/28/2019 2:09 PM ULTRASONIC HAND SOLDERER 04/27/2019 11:27 AM ULTRASONIC HAND SOLDERER HYDROmorphone (DILAUDID) BARREL BANDER 10 mg/NS Given - New 50mL infusion syr (std conc)(premade) Bag Intravenous, BARREL BANDER, Starting 04/27/19 at 1115, Until 04/27/19 at 1243, BARREL BANDER Additional Bolus (Pain >5): 0 mg, Re-assess in 15 minutes, may repeat bolus ONE time if pain not adequately controlled (MAXIMUM of 2 bolus doses only). Check pump to ensure proper function and appropriate patient utilization. If pain is still not adequately controlled, contact physician. Stop BARREL BANDER if patient difficul t to arouse, or systolic BP drops more than 20 mmHg from baseline. HYDROmorphone BARREL BANDER Conc= 0.2 mg/mL Administer only with BARREL BANDER Pump -- Only Patient may push BARREL BANDER button. NOTE: This is a HIGH ALERT Medication. MEDICATION DOUBLE CHECK Policy applies. , 04/28/2019 1:34 AM ULTRASONIC HAND SOLDERER HYDROmorphone (DILAUDID) BARREL BANDER 10 mg/NS Dose/Rate 50mL infusion syr (std conc)(premade) Verify Intravenous, BARREL BANDER, Starting 04/27/19 at 1415, Until Sun04/28/19 at 0654, BARREL BANDER Additional Bolus (Pain >5): 0 mg, Re-assess in 15 minutes, may repeat bolus ONE time if pain not adequately controlled (MAXIMUM of 2 bolus doses only). Check pump to ensure proper function and appropriate patient utilization. If pain is still not adequately controlled, contact physician. Stop BARREL BANDER if patient difficul t to arouse, or systolic BP drops more than 20 mmHg from baseline. HYDROmorphone BARREL BANDER Conc= 0.2 mg/mL Administer only with BARREL BANDER Pump -- Only Patient may push BARREL BANDER button. NOTE: This is a HIGH ALERT Medication. MEDICATION DOUBLE CHECK Policy applies. , Dose/Rate Verify 04/27/2019 7:22 PM ULTRASONIC HAND SOLDERER Dose/Rate Verify 04/27/2019 3:28 PM ULTRASONIC HAND SOLDERER 04/27/2019 4:30 AM ULTRASONIC HAND SOLDERER 1,000 mL lactated ringers infusion Given - New 1,000 mL, 1,000 mL, Intravenous, BOLUS, Bag 1 dose, 04/27/19 at 0445 LACTATED RINGERS IV SOLP (Cabinet Override) NOW, 1 dose, [place] 04/27/19 at 0430, Created by cabinet override, Created by cabinet override, 04/28/2019 8:37 PM ULTRASONIC HAND SOLDERER 5 mg melatonin tablet 5 mg Given 5 mg, Oral, AT BEDTIME DAILY, First dos e on Sun04/28/19 at 2100, Until Discontinued 04/29/2019 8:34 AM ULTRASONIC HAND SOLDERER 750 mg methocarbamol (ROBAXIN) tablet 750 mg Given 750 mg, Oral, THREE TIMES DAILY, First dose on 04/27/19 at 1600, Until Discontinued 750 mg Given 04/28/2019 8:37 PM ULTRASONIC HAND SOLDERER 750 mg Given 04/28/2019 2:09 PM ULTRASONIC HAND SOLDERER 04/29/2019 6:54 AM ULTRASONIC HAND SOLDERER 10 mg oxyCODONE (ROXICODONE) tablet 5-10 mg Given 5-10 mg, Oral, EVERY 4 HOURS PRN, Starting 04/27/19 at 1547, Until Sun04/29/19 at 1400, Pain PO 10 mg Given 04/29/2019 2:56 AM ULTRASONIC HAND SOLDERER 10 mg Given 04/28/2019 10:53 PM ULTRASONIC HAND SOLDERER 04/29/2019 8:34 AM ULTRASONIC HAND SOLDERER 17 g polyethylene glycol 3350 (MIRALAX) Given packet 17 g 17 g (1 packet), Oral, DAILY, First dos e on 04/27/19 at 1400, Until Discontinued, 8.5 GRAMS = 0.5 PACKET 17 GRAMS = 1 PACKET 34 GRAMS = 2 PACKETS, 17 g Given 04/28/2019 8:50 AM ULTRASONIC HAND SOLDERER 17 g Given 04/27/2019 1:55 PM ULTRASONIC HAND SOLDERER 04/29/2019 8:34 AM ULTRASONIC HAND SOLDERER 1 tablet senna (SENOKOT) tablet 1 tablet Given 1 tablet, Oral, TWICE DAILY, First dose on 04/27/19 at 1400, Until Discontinued, Hold for loose stools, 1 tablet Given 04/28/2019 8:50 AM ULTRASONIC HAND SOLDERER 1 tablet Given 04/27/2019 8:42 PM ULTRASONIC HAND SOLDERER 04/27/2019 11:27 AM ULTRASONIC HAND SOLDERER 500 mL 20 mL/hr sodium chloride 0.9 % infusion Given - New 500 mL, 500 mL, Intravenous, at 20 Bag mL/hr, CONTINUOUS, Starting 04/27/19 at 1030, Until Sun04/27/19 at 1243 documented in this encounter
--- OUTSIDE RECORDS SUMMARY | 2019-05-22 15:43 | XMS REPORT | Encounter Summary ---
Author Author [facility] Organization [facility] Address Unknown Phone Unavailable Care Team Providers Care Movie Producer Name Role Phone Ashley Ojeda RN Unavailable Unavailable Self, Shakir ROCHA PCP Reason for Visit * Auth/Cert Referred By Contact Referred To Contact Status Reason Specialty Diagnoses / Procedures Diagnoses Trauma fractured let ankle Encounter Details Care Team Description Date Type Department Alfonso Rdz MD [address] [place], [place] [phone] 04/27/2019 [facility] [address] [phone] Social History Date Tobacco Use Types Packs/Day Years Used Never Assessed Sex Assigned at Date Recorded Not on file Industry Job Start Date Occupation Not on file Not on file Not on file Travel End Travel History Travel Start No recent travel history available. documented as of this encounter Medications at Time of Discharge [...] as needed documented as of this encounter Plan of Treatment Not on filedocumented as of this encounter Goals Goal Patient Associated Recent Progress Patient-Stat Aut hor Goal Type Problems ed? to get this taken care of so I General Yes Horacio, can get back to normal MATEUSZ Robb documented as of this encounter Procedures Comments Procedure Name Priority Date/Time Associated Diag nosis CT LOWER EXTREM WO CONT STAT 04/27/2019 LEFT 5:32 AM SPINNING LATHE OPERATOR AUTOMATIC CT SPINE CERVICAL WO Routine 04/27/2019 CONTRAST 5:32 AM SPINNING LATHE OPERATOR AUTOMATIC CT HEAD WO CONTRAST Routine 04/27/2019 5:32 AM SPINNING LATHE OPERATOR AUTOMATIC documented in this encounter Results * CT LOWER EXTREM WO CONT LEFT (04/27/2019 5:32 AM SPINNING LATHE OPERATOR AUTOMATIC) Specimen Left Impressions Performed At 1. Moderately [...] Interface, Radiant Results - 04/27/2019 11:10 AM SPINNING LATHE OPERATOR AUTOMATIC Exam: CT LOWER EXTREM WO CONT LEFT [...] SPINE CERVICAL WO CONTRAST (04/27/2019 5:32 AM SPINNING LATHE OPERATOR AUTOMATIC) Specimen Impressions Performed At Head: [facility] RAD [...] Interface, Radiant Results - 04/27/2019 12:30 PM SPINNING LATHE OPERATOR AUTOMATIC EXAM: CT HEAD AND C-SPINE HISTORY: Trauma, [...] CT HEAD WO CONTRAST (04/27/2019 5:32 AM SPINNING LATHE OPERATOR AUTOMATIC) Specimen Impressions Performed At Head: [facility] RAD [...] Interface, Radiant Results - 04/27/2019 12:30 PM SPINNING LATHE OPERATOR AUTOMATIC EXAM: CT HEAD AND C-SPINE HISTORY: Trauma, [...] City/State/Zipcode Ph one Number [facility] RAD RESULTS documented in this encounter Visit Diagnoses Not on filedocumented in this encounter
--- OUTSIDE RECORDS SUMMARY | 2019-05-22 15:43 | XMS REPORT | Encounter Summary ---
Author Author [facility] Organization [facility] Address Unknown Phone Unavailable Care Team Providers Care Tool Design Checker Name Role Phone Ashley Ojeda RN Unavailable Unavailable Self, Shakir ROCHA PCP Reason for Visit * Auth/Cert Referred By Contact Referred To Contact Status Reason Specialty Diagnoses / Procedures Diagnoses Trauma fractured let ankle Encounter Details Care Team Description Date Type Department Alfonso Rdz MD [address] [place], [place] [phone] 04/27/2019 [facility] [address] [phone] Social History Date Tobacco Use Types Packs/Day [...] Name Priority Date/Time Associated Diag nosis CT ABD/PELV W CONTRAST Routine 04/27/2019 5:22 AM HOOP RIVETING MACHINE OPERATOR HELPER CT CHEST W CONTRAST Routine 04/27/2019 5:22 AM HOOP RIVETING MACHINE OPERATOR HELPER documented in this encounter Visit Diagnoses Not on filedocumented in this encounter Administered Medications Action Date Dose Rate Site Medication Order MAR Action 04/27/2019 5:30 AM HOOP RIVETING MACHINE OPERATOR HELPER 80 mL iohexol (OMNIPAQUE-350) 350 mg/mL Given injection 80 mL 80 mL, Intravenous, ONCE, 1 dose, 04/27/19 at 0530, NOTE: This is a HIGH ALERT Medication., 04/27/2019 5:30 AM HOOP RIVETING MACHINE OPERATOR HELPER 50 mL sodium chloride PF 0.9% injection 50 mL Given 50 mL, Intravenous, ONCE, 1 dose, 04/27/19 at 0530, DO NOT SEND this medication unless it is requested. This med is usually available in floor stock., Intra-procedure (IR) documented in this encounter
--- OUTSIDE RECORDS SUMMARY | 2019-05-22 15:43 | XMS REPORT ---
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 056939502 Problem Anxiety state, unspecified 300.00 Act danny [id number] ALLERGIES No Information ENCOUNTERS Encounter Location Date Diagnosis [address] [phone] Jun, [address] [phone] Jun, [facility] [address] [facility] [id number] [address] [place] [phone] Aug, [facility] [address] [facility] [id number] [address] [place] [phone] Aug, [place] [address] [facility] [id number] [address] [place] [phone] Dec, IMMUNIZATIONS No Known Immunizations SOCIAL HISTORY Never Assessed REASON FOR VISIT [facility] PLAN OF CARE VITAL SIGNS MEDICATIONS Medication Instructions Dosage Frequency Start Date End Date Duration S tatus Potassium Chloride 10 mEq take 1 tablets by Oral route with food 2 times per day Dec, Active Furosemide 20 mg take 1 tablet by Oral route 3 times per day Dec, Active Stool Softener by Oral route Dec, Active Effexor 75 mg 1 tablet by Oral route 2 times per day Dec, Active buspirone 15 mg 1 tablet by Oral route 2 times per day 2 Dec, Active RESULTS No Results PROCEDURES No Known procedures INSTRUCTIONS MEDICATIONS ADMINISTERED No Known Medications
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
--- OUTSIDE RECORDS SUMMARY | 2019-05-22 15:43 | XMS REPORT | Encounter Summary ---
Author Author [facility] Organization [facility] Address Unknown Phone Unavailable Care Team Providers Care Auto Service Advisor Name Role Phone PCP Unavailable Encounter Details Care Team Description Date Type Department 04/26/2019 [facility] Encounter [facility] [address] [address] Social History Date Tobacco Use Types Packs/Day Years Used Never Assessed Sex Assigned at Date Recorded Not on file Industry Job Start Date Occupation Not on file Not on file Not on file Travel End Travel History Travel Start No recent travel history available. documented as of this encounter Plan of Treatment Not on filedocumented as of this encounter Goals Goal Patient Associated Recent Progress Patient-Stat Aut hor Goal Type Problems ed? to get this taken care of so I General Yes Horacio, can get back to normal MATEUSZ Robb documented as of this encounter Procedures Comments Procedure Name Priority Date/Time Associated Diag nosis GENERAL RAD CHEST Routine 04/26/2019 EXTERNAL IMAGING 12:15 AM ENGINE TEST CELL TECHNICIAN documented in this encounter Results * GENERAL RAD CHEST EXTERNAL IMAGING (04/26/2019 12:15 AM ENGINE TEST CELL TECHNICIAN) Specimen Narrative Performed At This order has been auto finalized and does not contain a result. documented in this encounter Visit Diagnoses Not on filedocumented in this encounter
--- OUTSIDE RECORDS SUMMARY | 2019-05-22 15:43 | XMS REPORT | Encounter Summary ---
Author Author [facility] Organization [facility] Address Unknown Phone Unavailable Care Team Providers Care Trial Court Justice Name Role Phone PCP Unavailable Encounter Details Care Team Description Date Type Department 04/26/2019 [facility] Encounter [facility] [address] [address] Social History Date Tobacco Use [...] Priority Date/Time Associated Diag nosis GENERAL RAD LOWER EXT Routine 04/26/2019 EXTERNAL IMAGING 12:00 AM COMMUNITY SERVICES COORDINATOR documented in this encounter Results * GENERAL RAD LOWER EXT EXTERNAL IMAGING (04/26/2019 12:00 AM COMMUNITY SERVICES COORDINATOR) Specimen Narrative Performed At This order has been auto finalized and does not contain a result. documented in this encounter Visit Diagnoses Not on filedocumented in this encounter
--- OUTSIDE RECORDS SUMMARY | 2019-05-22 15:43 | XMS REPORT | Encounter Summary ---
Author Author [facility] Organization [facility] Address Unknown Phone Unavailable Care Team Providers Care [place] Mechanic Name Role Phone PCP Unavailable Encounter Details Care Team Description Date Type Department 04/26/2019 [facility] Encounter [facility] [address] [address] Social History Date Tobacco Use [...] EXT Routine 04/26/2019 EXTERNAL IMAGING 12:05 AM GRINDING MACHINE OPERATOR AUTOMATIC documented in this encounter Results * GENERAL RAD LOWER EXT EXTERNAL IMAGING (04/26/2019 12:05 AM GRINDING MACHINE OPERATOR AUTOMATIC) Specimen Narrative Performed At This order has been auto finalized and does not contain a result. documented in this encounter Visit Diagnoses Not on filedocumented in this encounter
--- OUTSIDE RECORDS SUMMARY | 2019-05-22 15:43 | XMS REPORT | Encounter Summary ---
Author Author [facility] Organization [facility] Address Unknown Phone Unavailable Care Team Providers Care Dissolver Operator Name Role Phone PCP Unavailable Encounter Details Care Team Description Date Type Department 04/26/2019 [facility] Encounter [facility] [address] [address] Social History Date Tobacco Use [...] Priority Date/Time Associated Diag nosis GENERAL RAD PELVIS Routine 04/26/2019 EXTERNAL IMAGING 12:10 AM PATROL COMMANDER documented in this encounter Results * GENERAL RAD PELVIS EXTERNAL IMAGING (04/26/2019 12:10 AM PATROL COMMANDER) Specimen Narrative Performed At This order has been auto finalized and does not contain a result. documented in this encounter Visit Diagnoses Not on filedocumented in this encounter
== END 2019-04-27 02:00 | disposition short-term general hospital (02) ==
LOC: EDUNIT# 21:50 → ER 21:51
DX: S82.302A Unspecified fracture of lower end of left tibia, initial encounter for closed fracture (principal); S82.832A Other fracture of upper and lower end of left fibula, initial encounter for closed fracture; F90.9 Attention-deficit hyperactivity disorder, unspecified type; Z90.710 Acquired absence of both cervix and uterus; V89.2XXA Person injured in unspecified motor-vehicle accident, traffic, initial encounter
CPT/HCPCS: 36415; 71045; 72170; 73590; 73610; 80053; 80320; 81000; 84703; 85007; 85025; 85027; 96361; 96374; 96375; 96376

== ENCOUNTER → 2019-05-15 | Outpatient (CLI) | payer BC ==
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
== END ==
LOC: RAD FS 09:01
PROVIDERS: ATTEND Nurse Practitioner Adult Health
DX: S82.391D Other fracture of lower end of right tibia, subsequent encounter for closed fracture with routine healing (principal); S82.51XA Displaced fracture of medial malleolus of right tibia, initial encounter for closed fracture
CPT/HCPCS: 73700

== ENCOUNTER → 2019-08-29 | Outpatient (CLI) | payer BC ==
--- NOTE | 2019-08-29 13:49 | Diagnostic Imaging Report ---
INDICATION: Left ankle fracture followup 3 views of the left ankle show postsurgical changes from internal fixation of the distal tibia and fibula. Multiple plates and screws are present. Bones appear to be healing in good alignment. IMPRESSION: Healing fractures of the distal tibia and fibula. Dictated by: Dictated on workstation # [id number]
== END ==
LOC: RAD FS 13:27
PROVIDERS: ATTEND Orthopaedic Surgery
DX: S82.872D Displaced pilon fracture of left tibia, subsequent encounter for closed fracture with routine healing (principal)
CPT/HCPCS: 73610

== ENCOUNTER → 2019-10-18 | Outpatient (CLI) | payer BC ==
--- NOTE | 2019-10-18 10:39 | Diagnostic Imaging Report ---
INDICATION: Follow-up left ankle fracture EXAMINATION: Left ankle 10/18/2019 COMPARISON: 08/29/2019 FINDINGS: There is a sideplate and multiple screws traversing the distal fibula with sideplate and multiple intervening screws as well as surgical pins throughout the mid and distal tibia. Orthopedic hardware stable. Continued changes of healing at the distal tibial fracture noted. No new fractures or dislocations appreciated IMPRESSION: 1. Uncomplicated postoperative changes with changes of healing along the distal tibia. Dictated by: Dictated on workstation # [id number]
== END ==
LOC: RAD FS 09:21
PROVIDERS: ATTEND Orthopaedic Surgery
DX: S82.872E Displaced pilon fracture of left tibia, subsequent encounter for open fracture type I or II with routine healing (principal)
CPT/HCPCS: 73610

== ENCOUNTER 2022-04-21 10:40 | Outpatient (CLI) | payer BC ==
[~2022-04-21] VITALS: Ht 160 cm; Wt 66.4 kg
[2022-04-21] MEDS ORDERED: ALPR0.5T7 PO (13:33)
[2022-04-21] MEDS ORDERED: FURO-125 PO (13:39)
== END 2022-04-21 13:52 | disposition home or self-care (01) ==
LOC: PREOP 10:40
PROVIDERS: ATTEND Surgery
DX: Z01.818 Encounter for other preprocedural examination (principal)

== ENCOUNTER 2022-04-28 12:02 | Day surgery (SDC) | payer BC ==
[~2022-04-28] VITALS: Ht 160 cm; Wt 66.4 kg
[~2022-04-28 12:02] MED LIST changes: +ALPR0.5T7 PO; +FURO-125 PO
[2022-04-28] MEDS ORDERED: LACTATED RINGERS 1,000 ML IV STA (12:14)
[2022-04-28 12:15] VITALS: BP 115/82
[2022-04-28] MEDS ORDERED: HURRICAINE EXT TUBE (BENZOCAINE) XX PRN (12:15)
[2022-04-28] MEDS ORDERED: LIDOCAINE PF 2% 5 ML (XYLOCAINE) VIAL ONE (13:10)
--- NOTE | 2022-04-28 13:42 | Progress Note-Pre Operative ---
Pre-Operative Progress Note Date of Available H&P: Apr 20, 2022 Date H&P Reviewed: Apr 28, 2022 Time H&P Reviewed: 13:39 History & Physical: H&P Reviewed, Patient Examed, No changes noted Pre-Operative Diagnosis: melena, epigastric pain NAMAN SMITH DO Apr 28, 2022 13:42
[2022-04-28 13:53] LABS: AMPHETAMINE SCREEN, URINE NEGATIVE (NEGATIVE); BARBITURATE SCREEN URINE NEGATIVE (NEGATIVE); BENZODIAZEPINES SCREEN URINE POSITIVE (NEGATIVE); CANNABINOID SCREEN, URINE NEGATIVE (NEGATIVE); COCAINE SCREEN URINE NEGATIVE (NEGATIVE); METHADONE STAT NEGATIVE (NEGATIVE); OPIATE SCREEN URINE NEGATIVE (NEGATIVE); OXYCODONE STAT NEGATIVE (NEGATIVE); PROPOXYPHENE STAT NEGATIVE (NEGATIVE); TRICYCLIC ANTIDEPRESSANTS SCRE NEGATIVE (NEGATIVE)
[2022-04-28] MEDS ORDERED: MIDAZOLAM 2 MG/2 ML (VERSED) VIAL ONE (13:55)
[2022-04-28] MEDS ORDERED: PROPOFOL INJECTION 50 ML IV ONE ×2 (13:55→14:13)
[2022-04-28 14:30] VITALS: BP 97/53
--- NOTE | 2022-04-28 14:34 | Anesthesia-General Post-Op ---
MAC Patient Condition Mental Status/LOC: Same as Preop Cardiovascular: Satisfactory Nausea/Vomiting: Absent Respiratory: Satisfactory Pain: Controlled Complications: Absent Post Op Complications Complications None Follow Up Care/Instructions Patient Instructions None needed. Anesthesiology Discharge Order Discharge Order Patient is doing well, no complaints, stable vital signs, no apparent adverse anesthesia problems. No complications reported per nursing. ELPIDIO VAZQUEZ CRNA Apr 28, 2022 14:34
[2022-04-28 14:35] VITALS: BP 108/59
[2022-04-28 14:40] VITALS: BP 120/75
[2022-04-28 15:05] VITALS: BP 118/50
--- NOTE | 2022-04-28 15:42 | Endoscopy Discharge Instruct ---
Endo Procedure/Findings Findings 1.: Gastritis, Other Findings (esophagitis, esophageal polyp) 2.: Polyp 3.: Diverticulosis 4.: Internal Hemorrhoids Discharge Instructions - Activity: You might feel a little sleepy until tomorrow. This is due to the medicine you received to relax you. Until tomorrow, you should: NOT drive a car, operate machinery or power tools. NOT drink any alcoholic beverages. NOT make any important decisions or sign importortant papers. Do not return to work until tomorrow, unless otherwise instructed. Resume previous activities tomorrow. Diet: Start by taking liquids. If you tolerate liquids, advance to solid food. 1.: EGD in 3 years 2.: Colonscopy in 5 years Notify Physician - If you experience excessive bleeding, unusual abdominal pain, fever, or chest pain, contact your doctor immediately. NAMAN SMITH DO Apr 28, 2022 15:42
--- NOTE | 2022-04-28 15:49 | Progress Note-Post Operative ---
Post-Operative Progess Note Surgeon (s)/Nursing Aide (s) Surgeon NAMAN SMITH DO Nursing Aide: Jasmina aWller, MSIII Pre-Operative Diagnosis melena, epigastric pain Post-Operative Diagnosis Gastritis Esophagitis small hiatal hernia esophageal polyp colon polyps diverticula int hemorrhoids Procedure & Operative Findings Date of Procedure 04/28/22 Procedure Performed/Findings EGD with bx Colonoscopy with snare Colonoscopy with cold biopsy PROCEDURE NOTE: After informed consent was obtained, the patient was brought to the endoscopy suite, placed in bed in left lateral decubitus position. She was administered IV sedation by the BLAST FURNACE KEEPER HELPER who then monitored vitals the entire time, heart rate, blood pressure and pulse ox and the scope was inserted down the mouth through the esophagus into the stomach. On the way down, noted some mild esophagitis, took a picture, pushed into the stomach, pushed past the antrum into the duodenum. Duodenum looked good. Pulled back to see some Gastritis and did a biopsy of the antrum and then body of the stomach. Next, retroflexed the scope, saw a small hiatal hernia, took a picture of this and then pulled the scope into the GE junction, took another picture of the hiatal hernia and then did a biopsy of the GE junction. Pushed the scope back into the stomach, suctioned all the air out of the stomach. At this point pulled the scope up the esophagus and on the way up found a polyp in the esophagus and biopsied it. Finally pulled the scope out of the mouth. Switched camera, switched gloves, went down below and started the colonoscopy. Pushed all the way to about 150 cm and pushed into the cecum, took a picture of appendiceal orifice and noted the ileocecal valve. Had noted diverticula on the way in and taken a picture. Then slowly withdrew the scope insufflating to look circumferentially at the lozano starting in the cecum, up the ascending colon to the hepatic flexure. Just into the transverse colon saw a polyp and elected to remove it completely with a snare polypectomy. Then down the transverse colon to the splenic flexure, into the descending colon down and into the sigmoid. Here I found another polyp which almost looked like an inverted diverticula; tried to poke it back in and then elected to do a cold biopsy trying not to take to much tissue in case it was a diverticula. Finally, into the rectal vault and retroflexed the scope. Took picture of the internal hemorrhoids. The patient tolerated the procedure and she recovered in the endoscopy suite. Recommended for repeat colonoscopy in 5 years Anesthesia Type IV sedation by BLAST FURNACE KEEPER HELPER Estimated Blood Loss Estimated blood loss (mL): scant Specimens/Packing Specimens Removed antral bx body of stomach bx GE jxn bx Esophageal polyp transverse colon polyp sigmoid polyp NAMAN SMITH DO Apr 28, 2022 15:48
[2022-04-28 15:50] VITALS: BP 118/50
== END 2022-04-28 15:50 | disposition home or self-care (01) ==
LOC: ENDO 12:02
PROVIDERS: ATTEND Surgery
DX: D12.3 Benign neoplasm of transverse colon (principal); D12.5 Benign neoplasm of sigmoid colon; D13.0 Benign neoplasm of esophagus; K29.70 Gastritis, unspecified, without bleeding; K21.00 Gastro-esophageal reflux disease with esophagitis, without bleeding; K44.9 Diaphragmatic hernia without obstruction or gangrene; K57.30 Diverticulosis of large intestine without perforation or abscess without bleeding; K64.8 Other hemorrhoids; Z28.310 Unvaccinated for COVID-19; F17.210 Nicotine dependence, cigarettes, uncomplicated; E66.9 Obesity, unspecified; Z68.25 Body mass index [BMI] 25.0-25.9, adult
CPT/HCPCS: 80306